=== PATIENT | male | born 1960 | race Caucasian/White ===

== ENCOUNTER 2020-01-25 20:42 | Observation (INO) | payer MEDICARE, MEDICAID ==
[~2020-01-25] VITALS: Ht 175.3 cm; Wt 125.0 kg
[2020-01-25] MEDS ORDERED: NS IV 500 ML 500 ML IV ONE (21:04)
[2020-01-25 21:07] LABS: BASOPHILS # (AUTO) 0.1 10^3/uL (0.0-0.1); BASOPHILS % (AUTO) 1 % (0-10); EOSINOPHILS % (AUTO) 1 % (0-10); HEMATOCRIT 48 % (40-54); HEMOGLOBIN 16.6 g/dL (13.3-17.7); LYMPHOCYTES # (AUTO) 4.2 10^3/uL (1.0-4.0); LYMPHOCYTES % (AUTO) 53 % (12-44); MEAN CORPUSCULAR HEMOGLOBIN 35 pg (25-34); MEAN CORPUSCULAR HGB CONC 35 g/dL (32-36); MEAN CORPUSCULAR VOLUME 101 fL (80-99); MEAN PLATELET VOLUME 10.9 fL (9.0-12.2); MONOCYTES # (AUTO) 0.4 10^3/uL (0.0-1.0); MONOCYTES % (AUTO) 5 % (0-12); NEUTROPHILS # (AUTO) 3.2 10^3/uL (1.8-7.8); NEUTROPHILS % (AUTO) 41 % (42-75); PLATELET COUNT 212 10^3/uL (130-400); WHITE BLOOD COUNT 7.9 10^3/uL (4.3-11.0)
[2020-01-25 21:14] LABS: BILIRUBIN,URINE NEGATIVE (NEGATIVE); CLARITY,URINE CLEAR; COLOR,URINE YELLOW; GLUCOSE, URINE (UA) NEGATIVE (NEGATIVE); KETONES,URINE NEGATIVE (NEGATIVE); LEUKOCYTE ESTERASE ,URINE NEGATIVE (NEGATIVE); NITRITE,URINE NEGATIVE (NEGATIVE); PROTEIN,URINE 1+ (NEGATIVE)
[2020-01-25 21:19] LABS: BACTERIA,URINE NEGATIVE /HPF; SQUAMOUS EPITHELIAL CELL,UR 0-2 /HPF
--- NOTE | 2020-01-25 21:19 | ED Chest Pain ---
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 PT REPORTS DRINKING ETOH ALL DAY TODAY. EMS REPORTS GIVING 324ASA AND X2 NITRO FEED RESEARCH TECHNICIAN. Nursing Sepsis Screen: No Definite Risk History of Present Illness Date Seen by Provider: Jan 25, 2020 Time Seen by Provider: 20:45 Initial Comments 59-year-old male presents via EMS for complaints of left substernal chest pain, aim to left arm. Symptoms began approximately one hour ago. Patient reports he had been drinking beer and vodka throughout the day today. He was sleeping when the chest pain awoke him. He was given aspirin 324 mg orally by EMS and nitroglycerin 2. Chest pain was relieved after the second nitroglycerin. Vital signs are stable. He was found to have an SaO2 in the mid 80s on room air, they've been giving him oxygen at 3 L per nasal cannula which is maintaining at 95% or higher. Reports a history of COPD, he denies a history of previous MIs or CAD. Patient does report a history of bed bugs in his home. He denies a history of diabetes. He had mild nausea when the chest pain began but is resolved at this time. PCP is Lucille Santoyo APRN at [facility]. Patient has never been patient at [facility], he normally goes to [facility]. Timing/Duration: 1-3 hours Severity/Quality: moderate Location: substernal Radiation: arms (left) Activities at Onset: sleep Prior CP/Workup: no prior chest pain, no prior cardiac workup ASA po FEED RESEARCH TECHNICIAN: Yes NTG SL FEED RESEARCH TECHNICIAN: Yes Associated Symptoms: No diaphoresis, No fatigue, No nausea/vomiting Allergies and Home Medications Allergies Coded Allergies: paroxetine (Verified Allergy, Unknown, 01/25/20) Patient Home Medication List Home Medication List Reviewed: Yes Review of Systems Review of Systems Constitutional: no symptoms reported, see HPI Respiratory: See HPI; Denies Cough; Shortness of Air (chronic, history of COPD), SOA With Exertion, Wheezing Cardiovascular: See HPI, Chest Pain Gastrointestinal: No Symptoms Reported, See HPI Skin: see HPI, other (lesions from bed bugs) All Other Systems Reviewed Negative Unless Noted: Yes Past Iaxhhbr-Ruklzd-Dfbqmw Hx Past Med/Social Hx: Reviewed Nursing Past Med/Soc Hx Patient Social History Alcohol Use: Regular Use Alcohol Beverage of Choice: Beer, Vodka Recreational Drug Use: Yes Drug of Choice: POT Smoking Status: Current Everyday Smoker Type Used: Cigarettes 2nd Hand Smoke Exposure: Yes Recent Foreign Travel: No Contact w/Someone Who Travel: No Recent Infectious Disease Expo: No Recent Hopitalizations: No Physical Abuse: No Sexual Abuse: No Mistreated: No Fear: No Seasonal Allergies Seasonal Allergies: Yes Past Medical History Surgeries: No Respiratory: Yes COPD Cardiac: Yes High Cholesterol, Hypertension Neurological: No Genitourinary: No Gastrointestinal: Yes Ulcer Musculoskeletal: Yes Arthritis, Fractures Endocrine: No HEENT: Yes Cataract Loss of Vision: Bilateral Cancer: No Psychosocial: Yes Anxiety, Depression Integumentary: No Blood Disorders: No Physical Exam Vital Signs Vital Signs - First Documented 01/25/20 01/25/20 20:44 20:48 Temp 36.3 Pulse 92 Resp 18 B/P (MAP) 145/82 (103) O2 Delivery Room Air O2 Flow Rate 3.0 Capillary Refill : Less Than 3 Seconds Height, Weight, BMI Height: '" Weight: lbs. oz. kg; 38.00 BMI Method: General Appearance: No Apparent Distress, WD/WN, Obese HEENT: PERRL/EOMI, TMs Normal, Pharynx Normal Neck: Full Range of Motion, Normal Inspection, Non Tender, Supple Respiratory: Normal Breath Sounds, No Accessory Muscle Use, Wheezing Cardiovascular: Regular Rate, Rhythm, No Murmur, Normal Peripheral Pulses Gastrointestinal: Normal Bowel Sounds, Non Tender, Soft Extremity: Normal Capillary Refill, Normal Range of Motion, Non Tender, No Calf Tenderness, Pedal Edema (2+) Neurologic/Psychiatric: Alert, Oriented x3, No Motor/Sensory Deficits, Normal Mood/Affect Skin: Warm/Dry, Pallor Progress/Results/Core Measures Results/Orders Lab Results Laboratory Tests Test 01/25/20 20:57 01/25/20 21:06 01/25/20 21:20 Range/Units White Blood Count 7.9 4.3-11.0 10^3/uL Red Blood Count 4.78 4.30-5.52 10^6/uL Hemoglobin 16.6 13.3-17.7 g/dL Hematocrit 48 40-54 % Mean Corpuscular Volume 101 H 80-99 fL Mean Corpuscular Hemoglobin 35 H 25-34 pg Mean Corpuscular Hemoglobin Concent 35 32-36 g/dL Red Cell Distribution Width 14.7 H 10.0-14.5 % Platelet Count 212 130-400 10^3/uL Mean Platelet Volume 10.9 9.0-12.2 fL Immature Granulocyte % (Auto) 0 % Neutrophils (%) (Auto) 41 L 42-75 % Lymphocytes (%) (Auto) 53 H 12-44 % Monocytes (%) (Auto) 5 0-12 % Eosinophils (%) (Auto) 1 0-10 % Basophils (%) (Auto) 1 0-10 % Neutrophils # (Auto) 3.2 1.8-7.8 10^3/uL Lymphocytes # (Auto) 4.2 H 1.0-4.0 10^3/uL Monocytes # (Auto) 0.4 0.0-1.0 10^3/uL Eosinophils # (Auto) 0.0 0.0-0.3 10^3/uL Basophils # (Auto) 0.1 0.0-0.1 10^3/uL Immature Granulocyte # (Auto) 0.0 0.0-0.1 10^3/uL Urine Color YELLOW Urine Clarity CLEAR Urine pH 6.0 5-9 Urine Specific [place] >=1.030 1.016-1.022 Urine Protein 1+ H NEGATIVE Urine Glucose (UA) NEGATIVE NEGATIVE Urine Ketones NEGATIVE NEGATIVE Urine Nitrite NEGATIVE NEGATIVE Urine Bilirubin NEGATIVE NEGATIVE Urine Urobilinogen 2.0 < = 1.0 MG/DL Urine Leukocyte Esterase NEGATIVE NEGATIVE Urine RBC (Auto) NEGATIVE NEGATIVE Urine RBC NONE /HPF Urine WBC NONE /HPF Urine Squamous Epithelial Cells 0-2 /HPF Urine Crystals NONE /LPF Urine Bacteria NEGATIVE /HPF Urine Casts NONE /LPF Urine Mucus SMALL H /LPF Urine Culture Indicated NO Urine Opiates Screen NEGATIVE NEGATIVE Urine Oxycodone Screen NEGATIVE NEGATIVE Urine Methadone Screen NEGATIVE NEGATIVE Urine Propoxyphene Screen NEGATIVE NEGATIVE Urine Barbiturates Screen NEGATIVE NEGATIVE Ur Tricyclic Antidepressants Screen NEGATIVE NEGATIVE Urine Phencyclidine Screen NEGATIVE NEGATIVE Urine Amphetamines Screen NEGATIVE NEGATIVE Urine Methamphetamines Screen NEGATIVE NEGATIVE Urine Benzodiazepines Screen NEGATIVE NEGATIVE Urine Cocaine Screen NEGATIVE NEGATIVE Urine Cannabinoids Screen POSITIVE H NEGATIVE Prothrombin Time 17.2 H 12.2-14.7 SEC INR Comment 1.4 0.8-1.4 Activated Partial Thromboplast Time 41 H 24-35 SEC Sodium Level 137 135-145 MMOL/L Potassium Level 3.2 L 3.6-5.0 MMOL/L Chloride Level 93 L 98-107 MMOL/L Carbon Dioxide Level 25 21-32 MMOL/L Anion Gap 19 H 5-14 MMOL/L Blood Urea Nitrogen 19 H 7-18 MG/DL Creatinine 0.96 0.60-1.30 MG/DL Estimat Glomerular Filtration Rate > 60 BUN/Creatinine Ratio 20 Glucose Level 165 H 70-105 MG/DL Calcium Level 8.1 L 8.5-10.1 MG/DL Corrected Calcium 8.5 8.5-10.1 MG/DL Magnesium Level 1.7 1.6-2.4 MG/DL Total Bilirubin 1.8 H 0.1-1.0 MG/DL Aspartate Amino Transf (AST/SGOT) 335 H 5-34 U/L Alanine Aminotransferase (ALT/SGPT) 352 H 0-55 U/L Alkaline Phosphatase 94 40-136 U/L Myoglobin 38.3 10.0-92.0 NG/ML Troponin I 0.029 H <0.028 NG/ML C-Reactive Protein High Sensitivity 0.12 0.00-0.50 MG/DL B-Type Natriuretic Peptide 13.2 <100.0 PG/ML Total Protein 7.8 6.4-8.2 GM/DL Albumin 3.5 3.2-4.5 GM/DL Serum Alcohol 253 H <10 MG/DL My Orders Orders - EDIS SHOOK Cbc With Automated Diff (01/25/20 20:49) Magnesium (01/25/20 20:49) Chest 1 View, Ap/Pa Only (01/25/20 20:49) Ekg Tracing (01/25/20 20:49) Comprehensive Metabolic Panel (01/25/20 20:49) Myoglobin Serum (01/25/20 20:49) Protime With Inr (01/25/20 20:49) Partial Thromboplastin Time (01/25/20 20:49) O2 (01/25/20 20:49) Monitor-Rhythm Ecg Trace Only (01/25/20 20:49) Ed Iv/Invasive Line Start (01/25/20 20:49) BNP (01/25/20 20:49) Troponin I (01/25/20 20:49) Alcohol (01/25/20 21:00) Hs C Reactive Protein (01/25/20 21:00) Drug Screen Stat (Urine) (01/25/20 21:00) Ua Culture If Indicated (01/25/20 21:00) Ed Iv/Invasive Line Start (01/25/20 21:04) Ed Iv/Invasive Line Start (01/25/20 21:04) Ns Iv 500 Ml (Sodium Chloride 0.9%) (01/25/20 21:04) Potassium Chloride (Tablet) (Klor Con Ta (01/25/20 21:55) Medications Given in ED Current Medications Medications Dose Ordered Sig/Devonte Route Start Time Stop Time Status Last Admin Dose Admin Sodium Chloride 500 ml @ 0 mls/hr Q0M ONCE IV 01/25/20 21:04 01/25/20 21:06 DC 01/25/20 21:09 999 MLS/HR Vital Signs/I&O 01/25/20 01/25/20 20:44 20:48 Temp 36.3 Pulse 92 Resp 18 B/P (MAP) 145/82 (103) O2 Delivery Room Air Nasal Cannula O2 Flow Rate 3.0 Blood Pressure Mean: 103 Progress Progress Note : Time: 20:45 Progress Note Patient seen and evaluated, will obtain chest x-ray, EKG, labs, normal saline 500 ML's. Will continue on 3 L oxygen per nasal cannula. Patient currently rates his pain at a 3/10. 2114 patient denies any additional complaints at this time, no further chest pain. [address] Walton and Dr. Zavala, agreed with plans to admit for observation and follow-up troponins. Patient resting in bed, eyes closed, easily aroused, no chest pain or other complaints. VS have remained stable. Initial ECG Impression Date: Jan 25, 2020 Initial ECG Impression Time: 20:47 Initial ECG Rate: 94 Initial ECG Rhythm: Normal Sinus Initial ECG Intervals: Normal Initial ECG Intervals WA 157, QRSD 97, QT 367, QTC 459. [place] P 68, QRS 23, T 28. Initial ECG Comparisson: No Previous ECG Available Comment Reviewed with Dr. Richard and agreed with interpretation. Diagnostic Imaging Diagonstic Imaging: Xray Plain Films/CT/US/NM/MRI: chest Comments NAME: CHRIS BARNES [facility] REC#: [id number] PT STATUS: REG ER : 1960 PHYSICIAN: EDIS SHOOK ADMIT DATE: 01/25/20/ER Draft Date of Exam:01/25/20 CHEST 1 VIEW, AP/PA ONLY INDICATION: Chest pain. COMPARISON: None. EXAMINATION: Single view of the chest was obtained. FINDINGS: Slight cardiac enlargement. Lungs are otherwise clear. There is no pneumothorax but osseous structures are normal. IMPRESSION: No acute cardiopulmonary finding. Dictated on workstation # [id number] Dict: 01/25/202135 Trans: 01/25/202145 [facility] [phone] Interpreted by: TOBIAS LEE Electronically signed by: Reviewed: Reviewed by Me Departure Impression Primary Impression: Chest pain Qualified Codes: R07.9 - Chest pain, unspecified Additional Impressions: Alcoholism Tobacco abuse COPD (chronic obstructive pulmonary disease) Qualified Codes: J42 - Unspecified chronic bronchitis Bed bug bite Qualified Codes: W57.XXXA - Bitten or stung by nonvenomous insect and other nonvenomous arthropods, initial encounter Disposition: ADMITTED INPATIENT Condition: Stable Admissions Decision to Admit Reason: Admit from ER (General) Decision to Admit/Date: Jan 25, 2020 Time/Decision to Admit Time: 21:15 Departure-Patient Inst. Referrals: [facility]/EDIS GOMES Jan 25, 2020 21:19
[2020-01-25 21:27] LABS: AMPHETAMINE SCREEN, URINE NEGATIVE (NEGATIVE); BARBITURATE SCREEN URINE NEGATIVE (NEGATIVE); BENZODIAZEPINES SCREEN URINE NEGATIVE (NEGATIVE); CANNABINOID SCREEN, URINE POSITIVE (NEGATIVE); COCAINE SCREEN URINE NEGATIVE (NEGATIVE); METHADONE STAT NEGATIVE (NEGATIVE); METHAMPHETAMINE SCREEN URINE S NEGATIVE (NEGATIVE); OPIATE SCREEN URINE NEGATIVE (NEGATIVE); OXYCODONE STAT NEGATIVE (NEGATIVE); PROPOXYPHENE STAT NEGATIVE (NEGATIVE); TRICYCLIC ANTIDEPRESSANTS SCRE NEGATIVE (NEGATIVE)
[2020-01-25 21:43] LABS: ALBUMIN 3.5 GM/DL (3.2-4.5)
[2020-01-25 21:44] LABS: CHLORIDE 93 MMOL/L (98-107); INR 1.4 (0.8-1.4); POTASSIUM 3.2 MMOL/L (3.6-5.0); PROTHROMBIN TIME PATIENT 17.2 SEC (12.2-14.7); SODIUM 137 MMOL/L (135-145)
[2020-01-25 21:45] LABS: CALCIUM 8.1 MG/DL (8.5-10.1)
[2020-01-25 21:46] LABS: GLUCOSE 165 MG/DL (70-105); TOTAL PROTEIN 7.8 GM/DL (6.4-8.2)
[2020-01-25 21:47] LABS: CARBON DIOXIDE 25 MMOL/L (21-32)
[2020-01-25 21:48] LABS: BILIRUBIN,TOTAL 1.8 MG/DL (0.1-1.0)
--- NOTE | 2020-01-25 21:48 | Diagnostic Imaging Report ---
INDICATION: Chest pain. COMPARISON: None. EXAMINATION: Single view of the chest was obtained. FINDINGS: Slight cardiac enlargement. Lungs are otherwise clear. There is no pneumothorax but osseous structures are normal. IMPRESSION: No acute cardiopulmonary finding. Dictated by: Dictated on workstation # [id number]
[2020-01-25 21:49] LABS: ALKALINE PHOSPHATASE 94 U/L (40-136)
[2020-01-25 21:50] LABS: CREATININE SERUM 0.96 MG/DL (0.60-1.30); GFR ESTIMATED > 60
[2020-01-25 21:51] LABS: BUN/CREATININE RATIO 20
[2020-01-25] MEDS ORDERED: ATEN1TAB3 PO (21:51)
[2020-01-25] MEDS ORDERED: CLON2TAB12 PO (21:51)
[2020-01-25 21:52] LABS: MAGNESIUM 1.7 MG/DL (1.6-2.4)
[2020-01-25 21:53] LABS: ALANINE AMINOTRANSFERASE 352 U/L (0-55)
[2020-01-25] MEDS ORDERED: KCL 10 MEQ TAB (MICRO K) PO STA (21:55)
[2020-01-25] MEDS ORDERED: RT-ALBUINH INH (21:56)
[2020-01-25] MEDS ORDERED: GABA-486 (21:56)
[2020-01-25] MEDS ORDERED: POTA10TA (21:56)
[2020-01-25] MEDS ORDERED: MELO7.5T46 PO (21:56)
[2020-01-25] MEDS ORDERED: BUDE10.2 INH (21:56)
--- NOTE | 2020-01-25 22:34 | NUR ---
ATTEMPT TO CALL REPORT. RN TO RETURN CALL
[2020-01-25 23:10] VITALS: BP 123/76
--- NOTE | 2020-01-25 23:10 | NUR ---
CHRIS BARNES admitted to room 410-1, with an admitting diagnosis of Chest pain, COPD, Alcoholism, on 01/25/20 from [place] ED via wheelchair, accompanied by staff.CHRIS BARNES introduced to surroundings, call light, bed controls, phone, TV, temperature control, lights, meal times, smoking policy, visitor policy, side rail policy, bathrooms and showers. Patient Rights given to patient in the handbook. CHRIS BARNES verbalizes understanding that [facility] is not responsible for the loss or damage to any personal effects or valuables that are kept in the patients posession during their hospitalization.
[2020-01-25] MEDS ORDERED: ONDANSETRON 4 MG/2 ML (SDV) Z0FRAN IVP PRN (23:45)
[2020-01-25] MEDS ORDERED: LORazepam INJ 2 MG/ML (ATIVAN) VIAL IVP PRN (23:45)
[2020-01-25] MEDS ORDERED: NITROGLYCERIN 0.4 MG SL TABS BTL 25'S SL PRN (23:45)
[2020-01-25] MEDS ORDERED: RT-ALBUTEROL INHALER HFA (VENTOLIN HFA) 18 GM IH PRN (23:45)
[2020-01-26] VITALS (15 sets, daily range): BP systolic 123–186; BP diastolic 65–88
--- NOTE | 2020-01-26 00:46 | NUR ---
Messaged Dr. Walton about patient status being SOA and coughing. Requested to put patient on MAT protocol. No response at this time.
[2020-01-26] MEDS: ACETAMINOPHEN 325 MG TABLET PO PRN (02:54)
--- NOTE | 2020-01-26 03:10 | NUR ---
Patient vomited on himself. Stated he coughed too hard. Patient cleaned at this time. Zofran administered
--- NOTE | 2020-01-26 03:10 | NUR ---
Spoke with Dr. Walton on the phone. Updated her on patients status. Patient is currently on 5L NC sating at 94%. Dr Walton requested to swab the patient for covid, place the patient in contact/droplet isolation, and on MAT protocol.
--- NOTE | 2020-01-26 03:17 | NUR ---
Spoke with Dr. Zavala regarding the patients critical troponin value of 0.305. Dr. Zavala ordered for the patient to have 2 81mg chewable aspirin now and then once daily starting in the AM, 150 of Plavix now and 75 once daily starting in AM, and 25 of Metoprolol once now and then daily starting in the AM. He also instructed the patient to be on a clear liquid diet for breakfast and then NPO afterward until he can see the patient. Orders placed and medications administered at this time.
[2020-01-26] MEDS ORDERED: ASPIRIN 81 MG CHEW (CHILDREN'S ASA) PO ONE (03:30)
[2020-01-26] MEDS ORDERED: CLOPIDOGREL 75 MG (PLAVIX) TABLET PO ONE (03:30)
[2020-01-26] MEDS ORDERED: CLOPIDOGREL 75 MG (PLAVIX) TABLET ONE (03:44)
[2020-01-26] MEDS ORDERED: ASPIRIN 81 MG CHEW (CHILDREN'S ASA) ONE (03:44)
[2020-01-26] MEDS ORDERED: ALBUTEROL/IPRATROP (COMBIVENT RESPIMAT) 4 GM INHALER IH PRN (06:00)
[2020-01-26 07:19] LABS: BASOPHILS # (AUTO) 0.1 10^3/uL (0.0-0.1); BASOPHILS % (AUTO) 1 % (0-10); EOSINOPHILS % (AUTO) 0 % (0-10); HEMATOCRIT 44 % (40-54); HEMOGLOBIN 15.2 g/dL (13.3-17.7); LYMPHOCYTES # (AUTO) 2.7 10^3/uL (1.0-4.0); LYMPHOCYTES % (AUTO) 41 % (12-44); MEAN CORPUSCULAR HEMOGLOBIN 35 pg (25-34); MEAN CORPUSCULAR HGB CONC 34 g/dL (32-36); MEAN CORPUSCULAR VOLUME 101 fL (80-99); MEAN PLATELET VOLUME 9.7 fL (9.0-12.2); MONOCYTES # (AUTO) 0.5 10^3/uL (0.0-1.0); MONOCYTES % (AUTO) 7 % (0-12); NEUTROPHILS # (AUTO) 3.4 10^3/uL (1.8-7.8); NEUTROPHILS % (AUTO) 51 % (42-75); PLATELET COUNT 132 10^3/uL (130-400); WHITE BLOOD COUNT 6.7 10^3/uL (4.3-11.0)
[2020-01-26] MEDS ORDERED: FLU QUADRIvalent (3YOA+) 60 mcg/0.5 ml 2020-21 (AFLURIA) IM ONE (07:30)
[2020-01-26 07:40] LABS: ALANINE AMINOTRANSFERASE 283 U/L (0-55); ALBUMIN 3.1 GM/DL (3.2-4.5); ALKALINE PHOSPHATASE 84 U/L (40-136); BILIRUBIN,TOTAL 1.9 MG/DL (0.1-1.0); BUN/CREATININE RATIO 23; CALCIUM 7.8 MG/DL (8.5-10.1); CARBON DIOXIDE 24 MMOL/L (21-32); CHLORIDE 93 MMOL/L (98-107); CREATININE SERUM 0.84 MG/DL (0.60-1.30); GFR ESTIMATED > 60; GLUCOSE 119 MG/DL (70-105); POTASSIUM 3.2 MMOL/L (3.6-5.0); SODIUM 134 MMOL/L (135-145); TOTAL PROTEIN 7.1 GM/DL (6.4-8.2)
[2020-01-26] MEDS: ASPIRIN 81 MG CHEW (CHILDREN'S ASA) PO SCH (09:07)
[2020-01-26] MEDS: CLOPIDOGREL 75 MG (PLAVIX) TABLET PO SCH (09:07)
[2020-01-26] MEDS: NICOTINE 21 MG (NICODERM) PATCH TD SCH ×2 (09:10→19:34)
[2020-01-26] MEDS ORDERED: NS IV 500 ML 500 ML ONE (09:13)
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
[2020-01-26] MEDS: POTASSIUM CL 10MEQ/50ML IVPB 50 ML IV SCH ×4 (09:20→15:24)
[2020-01-26] MEDS: methylPREDNISolone 125 MG (Solu-MEDROL) VIAL IVP SCH ×3 (09:48→19:36)
[2020-01-26] MEDS: NS IV 1000 ML 1,000 ML IV SCH ×3 (09:55→22:50)
[2020-01-26] MEDS ORDERED: POTA10TA6 PO (11:51)
[2020-01-26] MEDS ORDERED: ACET-2267 PO (11:52)
--- NOTE | 2020-01-26 12:03 | NUR ---
SPOKE WITH THE PT (I CALLED HIS ROOM PHONE) AND WENT THRU THE EXT MED HISTORY TO COMPLETE THE MED REC GABAPENTIN 100MG SHOWS ON THE EXT MED HISTORY BEING FILLED THE PAST SEVERAL MONTHS, BUT ACCORDING TO THE PT HE DOESNT TAKE THEM BECAUSE THEY DONT DO ANYTHING AND HE JUST THROWS THEM IN THE TRASH. FOR THAT REASON I DID NOT INCLUDE GABAPENTIN ON THE MED REC OTC MEDS: TYLENOL
--- NOTE | 2020-01-26 12:44 | History & Physical ---
HPI History of Present Illness: 59 yo male presented to ER with chest pain that started in the afternoon, felt like a "thousand pound" foot on the middle of his chest and radiated to his left arm. He did vomit after arriving here. He denies fever. He has chronic productive cough, but it is slightly worse than usual the last day or two. He admits sore throat that he relates to his inhaler. He does not use supplemental oxygen at home. Source: patient Date seen by provider: Jan 26, 2020 Time Seen by Provider: 09:20 Attending Physician Laurel Marrero MD PCP No,Local Physician Consult Date of Admission Jan 25, 2020 at 22:27 Home Medications Home Medications Reviewed patient Home Medication Reconciliation performed by pharmacy medication reconciliations health care technician and/or nursing. Patients Allergies have been reviewed. Allergies Coded Allergies: paroxetine (Verified Allergy, Unknown, 01/25/20) QDM-Rtydff-Fuwwni Hx Patient Social History Alcohol Use: Regular Use Recreational Drug Use: Yes Drug of Choice: POT Smoking Status: Current Everyday Smoker Type Used: Cigarettes 2nd Hand Smoke Exposure: Yes Recent Foreign Travel: No Contact w/other who traveled: No Recent Hopitalizations: No Recent Infectious Disease Expo: No Past Medical History PMHx: COPD HTN HLD Review of Systems ([facility]) Constitutional: No fever EENTM: other (denies loss of smell or taste) Respiratory: see HPI Cardiovascular: see HPI Gastrointestinal: No abdominal pain, No constipation, No diarrhea; nausea, vomiting Genitourinary: No dysuria Musculoskeletal: other (diffuse chronic pains) Skin: No rash Reviewed Test Results Reviewed Test Results Lab Laboratory Tests Test 01/25/20 20:57 01/25/20 21:06 01/25/20 21:20 01/26/20 02:08 Range/Units White Blood Count 7.9 4.3-11.0 10^3/uL Red Blood Count 4.78 4.30-5.52 10^6/uL Hemoglobin 16.6 13.3-17.7 g/dL Hematocrit 48 40-54 % Mean Corpuscular Volume 101 H 80-99 fL Mean Corpuscular Hemoglobin 35 H 25-34 pg Mean Corpuscular Hemoglobin Concent 35 32-36 g/dL Red Cell Distribution Width 14.7 H 10.0-14.5 % Platelet Count 212 130-400 10^3/uL Mean Platelet Volume 10.9 9.0-12.2 fL Immature Granulocyte % (Auto) 0 % Neutrophils (%) (Auto) 41 L 42-75 % Lymphocytes (%) (Auto) 53 H 12-44 % Monocytes (%) (Auto) 5 0-12 % Eosinophils (%) (Auto) 1 0-10 % Basophils (%) (Auto) 1 0-10 % Neutrophils # (Auto) 3.2 1.8-7.8 10^3/uL Lymphocytes # (Auto) 4.2 H 1.0-4.0 10^3/uL Monocytes # (Auto) 0.4 0.0-1.0 10^3/uL Eosinophils # (Auto) 0.0 0.0-0.3 10^3/uL Basophils # (Auto) 0.1 0.0-0.1 10^3/uL Immature Granulocyte # (Auto) 0.0 0.0-0.1 10^3/uL Urine Color YELLOW Urine Clarity CLEAR Urine pH 6.0 5-9 Urine Specific [place] >=1.030 1.016-1.022 Urine Protein 1+ H NEGATIVE Urine Glucose (UA) NEGATIVE NEGATIVE Urine Ketones NEGATIVE NEGATIVE Urine Nitrite NEGATIVE NEGATIVE Urine Bilirubin NEGATIVE NEGATIVE Urine Urobilinogen 2.0 < = 1.0 MG/DL Urine Leukocyte Esterase NEGATIVE NEGATIVE Urine RBC (Auto) NEGATIVE NEGATIVE Urine RBC NONE /HPF Urine WBC NONE /HPF Urine Squamous Epithelial Cells 0-2 /HPF Urine Crystals NONE /LPF Urine Bacteria NEGATIVE /HPF Urine Casts NONE /LPF Urine Mucus SMALL H /LPF Urine Culture Indicated NO Urine Opiates Screen NEGATIVE NEGATIVE Urine Oxycodone Screen NEGATIVE NEGATIVE Urine Methadone Screen NEGATIVE NEGATIVE Urine Propoxyphene Screen NEGATIVE NEGATIVE Urine Barbiturates Screen NEGATIVE NEGATIVE Ur Tricyclic Antidepressants Screen NEGATIVE NEGATIVE Urine Phencyclidine Screen NEGATIVE NEGATIVE Urine Amphetamines Screen NEGATIVE NEGATIVE Urine Methamphetamines Screen NEGATIVE NEGATIVE Urine Benzodiazepines Screen NEGATIVE NEGATIVE Urine Cocaine Screen NEGATIVE NEGATIVE Urine Cannabinoids Screen POSITIVE H NEGATIVE Prothrombin Time 17.2 H 12.2-14.7 SEC INR Comment 1.4 0.8-1.4 Activated Partial Thromboplast Time 41 H 24-35 SEC Sodium Level 137 135-145 MMOL/L Potassium Level 3.2 L 3.6-5.0 MMOL/L Chloride Level 93 L 98-107 MMOL/L Carbon Dioxide Level 25 21-32 MMOL/L Anion Gap 19 H 5-14 MMOL/L Blood Urea Nitrogen 19 H 7-18 MG/DL Creatinine 0.96 0.60-1.30 MG/DL Estimat Glomerular Filtration Rate > 60 BUN/Creatinine Ratio 20 Glucose Level 165 H 70-105 MG/DL Calcium Level 8.1 L 8.5-10.1 MG/DL Corrected Calcium 8.5 8.5-10.1 MG/DL Magnesium Level 1.7 1.6-2.4 MG/DL Total Bilirubin 1.8 H 0.1-1.0 MG/DL Aspartate Amino Transf (AST/SGOT) 335 H 5-34 U/L Alanine Aminotransferase (ALT/SGPT) 352 H 0-55 U/L Alkaline Phosphatase 94 40-136 U/L Myoglobin 38.3 10.0-92.0 NG/ML Troponin I 0.029 H 0.305 *H <0.028 NG/ML C-Reactive Protein High Sensitivity 0.12 0.00-0.50 MG/DL B-Type Natriuretic Peptide 13.2 <100.0 PG/ML Total Protein 7.8 6.4-8.2 GM/DL Albumin 3.5 3.2-4.5 GM/DL Serum Alcohol 253 H <10 MG/DL Test 01/26/20 03:55 01/26/20 04:55 01/26/20 07:05 Range/Units Coronavirus 2019 ([facility]) Negative Negative White Blood Count 6.7 4.3-11.0 10^3/uL Red Blood Count 4.39 4.30-5.52 10^6/uL Hemoglobin 15.2 13.3-17.7 g/dL Hematocrit 44 40-54 % Mean Corpuscular Volume 101 H 80-99 fL Mean Corpuscular Hemoglobin 35 H 25-34 pg Mean Corpuscular Hemoglobin Concent 34 32-36 g/dL Red Cell Distribution Width 14.3 10.0-14.5 % Platelet Count 132 130-400 10^3/uL Mean Platelet Volume 9.7 9.0-12.2 fL Immature Granulocyte % (Auto) 0 % Neutrophils (%) (Auto) 51 42-75 % Lymphocytes (%) (Auto) 41 12-44 % Monocytes (%) (Auto) 7 0-12 % Eosinophils (%) (Auto) 0 0-10 % Basophils (%) (Auto) 1 0-10 % Neutrophils # (Auto) 3.4 1.8-7.8 10^3/uL Lymphocytes # (Auto) 2.7 1.0-4.0 10^3/uL Monocytes # (Auto) 0.5 0.0-1.0 10^3/uL Eosinophils # (Auto) 0.0 0.0-0.3 10^3/uL Basophils # (Auto) 0.1 0.0-0.1 10^3/uL Immature Granulocyte # (Auto) 0.0 0.0-0.1 10^3/uL Sodium Level 134 L 135-145 MMOL/L Potassium Level 3.2 L 3.6-5.0 MMOL/L Chloride Level 93 L 98-107 MMOL/L Carbon Dioxide Level 24 21-32 MMOL/L Anion Gap 17 H 5-14 MMOL/L Blood Urea Nitrogen 19 H 7-18 MG/DL Creatinine 0.84 0.60-1.30 MG/DL Estimat Glomerular Filtration Rate > 60 BUN/Creatinine Ratio 23 Glucose Level 119 H 70-105 MG/DL Calcium Level 7.8 L 8.5-10.1 MG/DL Corrected Calcium 8.5 8.5-10.1 MG/DL Total Bilirubin 1.9 H 0.1-1.0 MG/DL Aspartate Amino Transf (AST/SGOT) 243 H 5-34 U/L Alanine Aminotransferase (ALT/SGPT) 283 H 0-55 U/L Alkaline Phosphatase 84 40-136 U/L Troponin I 2.661 *H <0.028 NG/ML Total Protein 7.1 6.4-8.2 GM/DL Albumin 3.1 L 3.2-4.5 GM/DL Radiology NAME: CHRIS BARNES [facility] REC#: [id number] PT STATUS: REG ER : 1960 PHYSICIAN: EDIS SHOOK ADMIT DATE: 01/25/20/ER Draft Date of Exam:01/25/20 CHEST 1 VIEW, AP/PA ONLY INDICATION: Chest pain. COMPARISON: None. EXAMINATION: Single view of the chest was obtained. FINDINGS: Slight cardiac enlargement. Lungs are otherwise clear. There is no pneumothorax but osseous structures are normal. IMPRESSION: No acute cardiopulmonary finding. Dictated on workstation # [id number] Dict: 01/25/202135 Trans: 01/25/202145 [facility] [id number] Interpreted by: TOBIAS LEE Electronically signed by: Physical Exam-([facility]) Physical Exam Vital Signs VS - Last 72 Hours, by Label 01/25/20 01/25/20 01/25/20 01/25/20 20:42 20:44 20:48 23:04 Temp 36.3 Pulse 92 89 Resp 18 17 B/P (MAP) 145/82 (103) 144/80 Pulse Ox 97 97 O2 Delivery Nasal Cannula Room Air Nasal Cannula Nasal Cannula O2 Flow Rate 3.00 3.0 3.00 01/25/20 01/25/20 01/26/20 01/26/20 23:10 23:10 00:00 01:16 Temp 37.1 37.1 Pulse 91 91 90 Resp 20 20 B/P (MAP) 123/76 123/76 (92) Pulse Ox 91 91 91 O2 Delivery Nasal Cannula Nasal Cannula Nasal Cannula O2 Flow Rate 3.00 3.00 3.00 3.00 01/26/20 01/26/20 01/26/20 01/26/20 04:00 05:48 06:59 07:03 Temp 36.6 36.3 36.8 Pulse 106 92 88 85 Resp 20 22 B/P (MAP) 163/88 (113) 151/80 (103) Pulse Ox 96 95 94 O2 Delivery Room Air Nasal Cannula O2 Flow Rate 4.00 01/26/20 08:00 Temp 36.6 Pulse 86 Resp 20 B/P (MAP) 146/65 (92) Pulse Ox 94 O2 Delivery Nasal Cannula O2 Flow Rate 4.00 Capillary Refill : Less Than 3 Seconds General Appearance: no apparent distress Respiratory: rhonchi, wheezing Cardiovascular: regular rate, rhythm, no murmur Gastrointestinal: normal bowel sounds, non tender, soft Extremities: no pedal edema Neurologic/Psychiatric: alert, normal mood/affect Skin: normal color, warm/dry Assessment/Plan Assessment/Plan Admission Status: Inpatient Order (span 2 midnights) Reason for Inpatient Admission: Increasing troponin, supsected NSTEMI with acute on chronic respiratory failure (1) Chest pain Status: Acute Assessment & Plan: Consistent with ischemia per symptoms, troponin increasing, Cardiology consulted and plan for cath this am. On plavix and ASA. Qualifiers: Qualified Codes: R07.9 - Chest pain, unspecified (2) Acute and chronic respiratory failure with hypoxia Status: Acute Assessment & Plan: Requiring increasing supplemental oxygen overnight, suspect COPD exacerbation in combination with NSTEMI, however cannot rule out infection, checking COVID and influenza. CXR unremarkable and no leukocytosis, do not suspect pneumonia. (3) Alcoholism Status: Chronic Assessment & Plan: Markedly elevated EtOH level on admit. CIWA, but would not anticipate withdrawal yet. (4) Hypokalemia Status: Acute Assessment & Plan: Replace and follow. (5) Acute hepatitis Status: Acute Assessment & Plan: Markedly elevated liver enzymes, denies known history of hepatitis, acute alcoholic hepatitis versus viral hepatitis, check hepatitis panel. Also has acetaminophen on home med list, will check apap level. (6) Elevated troponin Status: Acute (7) COPD exacerbation Status: Acute Assessment & Plan: Solumedrol, MAT protocol. (8) Person under investigation for COVID-19 Status: Acute (9) Tobacco abuse Status: Chronic (10) COPD (chronic obstructive pulmonary disease) Status: Chronic Qualifiers: Qualified Codes: J42 - Unspecified chronic bronchitis (11) DVT prophylaxis Status: Acute Clinical Quality Measures AMI/AHF: ASA po Prior to arrival: Yes DVT/VTE Risk/Contraindication: Risk Factor Score Per Nursin RFS Level Per Nursing on Admit: 4+=Very High LAUREL MARRERO MD Jan 26, 2020 12:44
[2020-01-26] MEDS ORDERED: 1/2 NS IV SOLUTION 1,000 ML IV PRN (13:01)
[2020-01-26] MEDS ORDERED: LORazepam INJ 2 MG/ML (ATIVAN) VIAL IV PRN (13:15)
[2020-01-26] MEDS ORDERED: LORazepam 1 MG (ATIVAN) TAB PO PRN (13:15)
[2020-01-26] MEDS ORDERED: D5 1/2 NS 1000 ML IV SOLUTION 1,000 ML IV PRN (13:15)
[2020-01-26] MEDS ORDERED: LORazepam INJ 2 MG/ML (ATIVAN) VIAL IM/IV PRN (13:15)
[2020-01-26] MEDS: ENOXAPARIN 40 MG/0.4 ML (LOVENOX) SYR SC SCH (15:19)
[2020-01-26] MEDS ORDERED: LIDOCAINE 1% INJ 20 ML 20 ML VIAL ONE (15:43)
[2020-01-26] MEDS ORDERED: HEParin (CATH LAB) 2,000 ML IV ONE (15:43)
[2020-01-26] MEDS ORDERED: NS IV 1000 ML 1,000 ML ONE (15:43)
[2020-01-26] MEDS ORDERED: MIDAZOLAM 5 MG/5 ML (VERSED) VIAL ONE (17:08)
[2020-01-26] MEDS ORDERED: fentaNYL INJECTION 100 MCG/2 ML AMP ONE (17:08)
--- NOTE | 2020-01-26 17:15 | NUR ---
REPORT FROM MOSHE ALONSO, WILL ASSUME CARE OF PATIENT AT THIS TIME.
[2020-01-26] MEDS ORDERED: EPTIFIBATIDE DRIP 100 ML IV ONE (17:33)
[2020-01-26] MEDS ORDERED: HEParin 1000 UNIT/ML (10ML VIAL) FOR BOLUS ONE (17:33)
[2020-01-26] MEDS ORDERED: NITRO DRIP 25000 MCG/D5W 250 ML IV ONE (17:33)
[2020-01-26] MEDS ORDERED: EPTIFIBATIDE BOLUS 10 ML IV ONE (17:33)
--- NOTE | 2020-01-26 18:00 | NUR ---
PATIENT OFF FLOOR TO FLIGHT ENGINEER INSTRUCTOR AT THIS TIME.
--- NOTE | 2020-01-26 18:03 | Cardiac Procedure Note-CS/ASA ---
Pre-Procedure Note Pre-Op Procedure Note H&P Reviewed The H&P was reviewed, patient examined and no changes noted. Date H&P Reviewed: Jan 26, 2020 Time H&P Reviewed: 18:03 Conscious Sedation Pre-Proced Time 18:03 ASA Score 3 For ASA 3 and 4: Consider anesthesia and medical clearance. Also, for patients with a history of failed moderate sedation consider anesthesia. Airway Lungs Heart ASA score ASA 1: a normal healthy patient ASA 2: a patient with a mild systemic disease (mid diabetes, controlled hypertension, obesity ASA 3: a patient with a severe systemic disease that limits activity (angina, COPD, prior Myocardial infarction) ASA 4: a patient with an incapacitating disease that is a constant threat to life (CHF, renal failure) ASA 5: a moribund patient not expected to survive 24 hrs. (ruptured aneurysm) ASA 6: a declared brain- patient whose organs are being harvested. For emergent operations, add the letter E after the classification Mallampati Classification Grade 3 Sedation Plan Analgesia, Amnesia, Plan communicated to team members, Discussed options with patient/fam, Discussed risks with patient/fam The patient is an appropriate candidate to undergo the planned procedure, sedation, and anesthesia. The patient immediately re-assessed prior to indication. AMARA BROWN MD FACP FAC CCDS Jan 26, 2020 18:03
[2020-01-26] MEDS ORDERED: ADENOSINE 90 MG/30 ML (ADENOSCAN) VIAL IV ONE (18:23)
--- NOTE | 2020-01-26 19:00 | NUR ---
REPORT RECEIVED FORM GAVIN MARTEL. PT OFF FLOOR AT THIS TIME
[2020-01-26] MEDS ORDERED: CLOPIDOGREL 300 MG (PLAVIX) TABLET PO ONE (19:12)
[2020-01-26] MEDS ORDERED: ASPIRIN 325 MG (5 GR) TABLET ONE (19:12)
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
[2020-01-26] MEDS ORDERED: PATIENT MAY USE OWN MEDS, ALL PO SCH (19:15)
[2020-01-26] MEDS: MAGNESIUM OXIDE (MAG-OX)400 MG TAB PO SCH (19:36)
[2020-01-26] MEDS: ADVAIR HFA 115/21 MCG INHALER 8 GM IH SCH (19:52)
--- NOTE | 2020-01-26 22:32 | NUR ---
dr major contacted d/t covid results coming back negative. orders given to take pt out of covid isolation at this time.
--- NOTE | 2020-01-26 23:56 | CARDIAC CATHETERIZATION ---
DATE OF SERVICE: 01/26/2020 CARDIAC CATHETERIZATION AND CORONARY INTERVENTION REPORT The patient is a 59-year-old gentleman who was admitted with chest pain and subsequent troponin was elevated. This indicated acute non-ST elevation myocardial infarction. Informed consent was obtained for cardiac catheterization and possible ad hoc coronary intervention. DESCRIPTION OF PROCEDURE: He was brought to the cardiac catheterization laboratory in a fasting state. Right groin was prepared and draped in the usual sterile fashion. Lidocaine 1% was used for local anesthesia. Modified Seldinger technique was used to advance a 6-Gibraltarian sheath into the right femoral artery. A 6-Gibraltarian JL4 catheter for left coronary angiography. A 6-Gibraltarian JR4 catheter was used for right coronary angiography. A 6-Gibraltarian pigtail catheter was used for left heart catheterization and left ventricular angiography. FRACTIONAL FLOW RESERVE MEASUREMENT IN THE LEFT CIRCUMFLEX: The left circumflex was exhibiting a mid vessel stenosis, which was difficult to evaluate. In one view, it looked rather severe and in other views, it looked mild to moderate. There was some haziness. Accordingly, we decided to do fractional flow reserve measurement. We gave 7000 units of intravenous heparin and used a 6-Gibraltarian JL4 guide catheter to engage the left coronary artery and advanced the pressure wire across the lesion and the tip was placed in the distal vessel. The fractional flow reserve at baseline was 0.77, indicating that the lesion was hemodynamically significant. However, at that time, felt to be about 90%. Accordingly, percutaneous intervention was carried out that is described below. PERCUTANEOUS INTERVENTION TO THE LEFT CIRCUMFLEX ARTERY: We kept the pressure wire in position. We advanced Arianne Xience 3.0 x 18 mm stent. This was carefully positioned to cover the entire lesion. The stent was deployed at 15 atmospheres. Full stent expansion was achieved. The stent balloon was collapsed and removed. Fractional flow reserve was again measured. It was now found to be 0.97, indicating marked improvement of the stenosis. Angiography was performed. This indicated no significant residual stenosis at the previous site with 90% stenosis and flow throughout the vessel was normal. Angioplasty equipment was removed. Angiography of the right femoral artery was carried out the sheath. Mynx was used to achieve hemostasis. HEMODYNAMICS: Left ventricular end-diastolic pressure following coronary angiography was 21 mmHg. There is no significant pressure gradient on pullback across the aortic valve. Ascending aortic pressure was 155/72 with a mean of 91 mmHg. CORONARY ANGIOGRAPHY: Left main coronary artery is free of significant disease. Left anterior descending artery is free of significant disease. Left circumflex artery had 90% stenosis in its mid vessel to which successful stenting was carried out with Arianne 3.0 x 18 mm stent that reduced the stenosis to 0% residual. Fractional flow reserve before and after is described above. The other coronary vessels do not have significant disease. Right coronary artery is dominant. VENTRICULAR ANGIOGRAPHY: Left ventricular angiography was carried out in the right anterior oblique projection. Global left ventricular systolic function is well preserved. Left ventricular ejection fraction is 55% to 60%. No regional wall motion abnormalities seen in this view. CONCLUSIONS: 1. Coronary artery disease primarily consisting of 90% mid vessel stenosis of the left circumflex artery to which successful stenting was carried out with Arianne 3.0 x 18 mm stent that reduced the stenosis to 0% residual. 2. Well preserved global left ventricular systolic function with ejection fraction of 55% to 60%. 3. Elevated left ventricular end-diastolic pressure. DISCUSSION AND RECOMMENDATIONS: Dual antiplatelet therapy is being continued. Beta blockers is being continued. He is not a suitable candidate for statin because of baseline elevation of liver enzymes. Smoking cessation and alcohol cessation has been advised. Job ID: [id number] DocumentID: [id number] Dictated Date: 01/26/2020 19:22:19 Languages And Literature Instructor Date: 01/26/2020 23:56:02 Dictated By: AMARA BROWN MD, MA, FACP, FACC,
[2020-01-27] VITALS (16 sets, daily range): BP systolic 131–154; BP diastolic 60–78
[2020-01-27] MEDS: ENOXAPARIN 40 MG/0.4 ML (LOVENOX) SYR SC SCH ×2 (01:06→13:30)
[2020-01-27] MEDS: methylPREDNISolone 125 MG (Solu-MEDROL) VIAL IVP SCH ×4 (03:16→20:44)
[2020-01-27] MEDS: NS IV 1000 ML 1,000 ML IV SCH ×2 (03:17→05:09)
[2020-01-27 05:57] LABS: HEMOGLOBIN 14.1 g/dL (13.3-17.7); MEAN PLATELET VOLUME 9.6 fL (9.0-12.2); WHITE BLOOD COUNT 6.2 10^3/uL (4.3-11.0)
[2020-01-27] MEDS: THIAMINE 100 MG (VITAMIN B-1) TAB PO SCH (06:08)
[2020-01-27] MEDS: MULTIVIT W/MINERALS TAB (THERAGRAN M) PO SCH (06:08)
[2020-01-27 06:17] LABS: CHLORIDE 96 MMOL/L (98-107); POTASSIUM 3.9 MMOL/L (3.6-5.0); SODIUM 135 MMOL/L (135-145)
[2020-01-27 06:18] LABS: CALCIUM 7.7 MG/DL (8.5-10.1)
[2020-01-27 06:19] LABS: GLUCOSE 257 MG/DL (70-105); TRIGLYCERIDES 452 MG/DL (<150); VLDL CHOLESTEROL 90 MG/DL (5-40)
[2020-01-27 06:21] LABS: CARBON DIOXIDE 26 MMOL/L (21-32)
[2020-01-27 06:23] LABS: CREATININE SERUM 0.97 MG/DL (0.60-1.30); GFR ESTIMATED > 60; PHOSPHORUS 1.5 MG/DL (2.3-4.7)
[2020-01-27 06:24] LABS: BUN/CREATININE RATIO 23; CHOLESTEROL 178 MG/DL (< 200)
[2020-01-27 06:25] LABS: HDL CHOLESTEROL 17 MG/DL (40-60)
[2020-01-27 06:26] LABS: MAGNESIUM 1.8 MG/DL (1.6-2.4)
[2020-01-27 07:21] LABS: ALBUMIN 3.1 GM/DL (3.2-4.5)
[2020-01-27 07:24] LABS: TOTAL PROTEIN 7.1 GM/DL (6.4-8.2)
[2020-01-27 07:26] LABS: BILIRUBIN,TOTAL 2.8 MG/DL (0.1-1.0)
[2020-01-27 07:30] LABS: BILIRUBIN,DIRECT 1.1 MG/DL (0.0-0.3); BILIRUBIN,INDIRECT 1.7 MG/DL
[2020-01-27] MEDS ORDERED: RT-ALBUTEROL/IPRATROPIUM 3 ML (DUONEB) VIAL INH SCH ×2 (10:00→15:00)
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
[2020-01-27] MEDS: ADVAIR HFA 115/21 MCG INHALER 8 GM IH SCH ×2 (10:25→22:20)
[2020-01-27] MEDS: NICOTINE PATCH REMOVAL TP SCH (10:40)
[2020-01-27] MEDS: FOLIC ACID 1 MG TAB PO SCH (10:43)
[2020-01-27] MEDS: MAGNESIUM OXIDE (MAG-OX)400 MG TAB PO SCH ×2 (10:43→20:43)
[2020-01-27] MEDS: ASPIRIN 81 MG CHEW (CHILDREN'S ASA) PO SCH (10:43)
[2020-01-27] MEDS: CLOPIDOGREL 75 MG (PLAVIX) TABLET PO SCH (10:43)
[2020-01-27] MEDS: NICOTINE 21 MG (NICODERM) PATCH TD SCH (10:56)
--- NOTE | 2020-01-27 11:16 | Progress Note ---
ZACH SANCHEZ MED STUDENT 01/27/20 1116: Subjective Subjective/Events-last exam 59 y/o M was drinking a beer and watching tv when he had chest pain that radiated to his L arm. Pt had some nausea but denies fever or chills. Pt had SOB and cough but were chronic conditions d/t COPD. Pt denies being on oxygen at home. Pt couldn't move around well b/c he has 3 forms of arthritis. Pt called EMS and was given nitro and aspirin but they didn't help. Pt has had angina before b/c he ate too much at once but denies previous occurrences of heart attack. ED found elevated troponin and NSTEMI. Cardiac cath was preformed, stenosis was found, and a stint was placed in the L circumflex A. Today, pt states he is eating solid food and denies nausea but vomited last night. Pt is using a urinal. Last BM was before the heart attack. Pt is not walking around d/t all the lines he's attached to. SocHx: pt has been smoking since he was 11 y/o Review of Systems Gastrointestinal: Vomiting Objective Exam Last Set of Vital Signs Vital Signs Date Time Temp Pulse Resp B/P (MAP) Pulse Ox O2 Delivery O2 Flow Rate FiO2 01/27/20 10:00 86 135/65 (88) 93 Nasal Cannula 4.00 01/27/20 08:00 36.8 01/26/20 16:00 20 Capillary Refill : Less Than 3 Seconds I&O Intake and Output 01/27/20 00:00 Intake Total 1500 ml Output Total 750 ml Balance 750 ml Intake Oral 1500 ml Output Urine Total 750 ml # Voids 1 # Emeses 1 General: Alert, Oriented X3, Cooperative, No Acute Distress Lungs: Other (expiratory rhonchi d/t COPD) Heart: Regular Rate, No Murmurs Neuro: Normal Speech Psych/Mental Status: Mental Status NL Results/Procedures Lab Laboratory Tests 01/27/20 05:45: White Blood Count 6.2, Red Blood Count 4.05L, Hemoglobin 14.1, Hematocrit 41, Mean Corpuscular Volume 101H, Mean Corpuscular Hemoglobin 35H, Mean Corpuscular Hemoglobin Concent 35, Red Cell Distribution Width 13.5, Platelet Count 110L, Mean Platelet Volume 9.6, Sodium Level 135, Potassium Level 3.9, Chloride Level 96L, Carbon Dioxide Level 26, Anion Gap 13, Blood Urea Nitrogen 22H, Creatinine 0.97, Estimat Glomerular Filtration Rate > 60, BUN/Creatinine Ratio 23, Glucose Level 257H, Calcium Level 7.7L, Phosphorus Level 1.5L, Magnesium Level 1.8, Total Bilirubin 2.8H, Direct Bilirubin 1.1H, Indirect Bilirubin 1.7, Aspartate Amino Transf (AST/SGOT) 120H, Alanine Aminotransferase (ALT/SGPT) 197H, Alkaline Phosphatase 88, Total Protein 7.1, Albumin 3.1L, Triglycerides Level 452H, Cholesterol Level 178, LDL Cholesterol Direct 73, VLDL Cholesterol 90H, HDL Cholesterol 17L Microbiology 01/26/20 Influenza Types A,B Antigen (LINDY) - Final, Complete Radiology NAME: CHRIS BARNES [facility] REC#: [id number] PT STATUS: REG ER : 1960 PHYSICIAN: EDIS SHOOK ADMIT DATE: 01/25/20/ER Draft Date of Exam:01/25/20 CHEST 1 VIEW, AP/PA ONLY INDICATION: Chest pain. COMPARISON: None. EXAMINATION: Single view of the chest was obtained. FINDINGS: Slight cardiac enlargement. Lungs are otherwise clear. There is no pneumothorax but osseous structures are normal. IMPRESSION: No acute cardiopulmonary finding. Dictated on workstation # [id number] Dict: 01/25/202135 Trans: 01/25/202145 [facility] [id number] Interpreted by: TOBIAS LEE Electronically signed by: Assessment/Plan Assessment/Plan Admission Dx chest pain heart attack Admission Status: Inpatient Order (span 2 midnights) Assessment & Plan 1. chest pain - continue plavix - continue aspirin - covid negative - decrease steroids today - transfer from ICU to inpatient 2. hypoxia - continue oxygen supplementation 3. acute hepatitis possibly d/t alcoholism - repeat liver enzymes - get liver hep panel - continue IV fluids Clinical Quality Measures AMI/AHF: ASA po Prior to arrival: Yes DVT/VTE Risk/Contraindication: Risk Factor Score Per Nursin RFS Level Per Nursing on Admit: 4+=Very High Supervisory-Addendum Brief Verification & Attestation Participated in pt care: history, MDM, physical Personally performed: exam, history, MDM Care discussed with: Medical Student Procedures: n/a n/a LAUREL MARRERO MD 01/27/20 1146: Objective Exam General: Alert, No Acute Distress Lungs: Other (expiratory rhonchi) Heart: Regular Rate, No Murmurs Extremities: No Edema Neuro: Normal Speech Psych/Mental Status: Mental Status NL Assessment/Plan Assessment/Plan (1) NSTEMI (non-ST elevated myocardial infarction) Status: Acute Assessment & Plan: Cath done yesterday, stent to left circumflex. Plavix, ASA, cannot tolerate statin due to markedly elevated LFTs. (2) COPD exacerbation Status: Acute Assessment & Plan: Improving, decrease solumedrol to 62.5 mg q6. Schedule duonebs q6. Albuterol q4 prn. (3) COPD (chronic obstructive pulmonary disease) Status: Chronic Assessment & Plan: Continue home inhaled steroid/LABA. Qualifiers: Qualified Codes: J42 - Unspecified chronic bronchitis (4) Alcoholism Status: Chronic Assessment & Plan: Encouraged cessation, no signs of withdrawal to date. (5) Tobacco abuse Status: Chronic Assessment & Plan: Strongly encouraged cessation, discussed risk of recurrent heart attack, he states he has smoked for 50 years and is not ready to quit. (6) Chest pain Status: Acute Assessment & Plan: NSTEMI diagnosed. Qualifiers: Qualified Codes: R07.9 - Chest pain, unspecified (7) Hypokalemia Status: Resolved (8) Acute hepatitis Status: Acute Assessment & Plan: LFTs improving today, suspect acute alcoholic hepatitis, possible hypoperfusion due to NV. Hepatitis panel pending. (9) Elevated troponin Status: Acute (10) Acute and chronic respiratory failure with hypoxia Status: Acute Assessment & Plan: Still requiring 4 lpm supplemental oxygen (no baseline requirement prior to admission), secondary to COPD exacerbation. Wean as tolerated. (11) Person under investigation for COVID-19 Status: Resolved Assessment & Plan: NAAT and PCR neg. (12) DVT prophylaxis Status: Acute Assessment & Plan: Enoxaparin Supervisory-Addendum Brief Verification & Attestation Participated in pt care: history, MDM, physical Personally performed: exam, history, MDM Care discussed with: Medical Student Procedures: n/a I personally saw and examined this patient today and did my own history and exam which agree with that documented by the medical student except where my documentation differs. See problem list for my assessment and plan. ZACH SANCHEZ MED STUDENT Jan 27, 2020 11:16 LAUREL MARRERO MD Jan 27, 2020 11:46
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
[2020-01-27] MEDS ORDERED: RT-ALBUTEROL/IPRATROPIUM 3 ML (DUONEB) VIAL INH PRN (17:00)
[2020-01-27 20:33] LABS: HEPATITIS C ANTIBODY C Non-Reactive (Non-Reactive)
[2020-01-27] MEDS: RT-ALBUTEROL/IPRATROPIUM 3 ML (DUONEB) VIAL INH SCH (22:20)
[2020-01-28 00:03] VITALS: BP 163/69
[2020-01-28] MEDS: ENOXAPARIN 40 MG/0.4 ML (LOVENOX) SYR SC SCH ×2 (01:09→13:27)
[2020-01-28] MEDS: NS IV 1000 ML 1,000 ML IV SCH (01:30)
--- NOTE | 2020-01-28 01:49 | NUR ---
This nurse went in to give this patient his scheduled Normal Saline @ 75 mL/hr that was scheduled for 129, and pt refused saying " I don't need the damn thing, I already have enough fluid in my tonsils an body and I'm not taking it, its not going to do me any good and I don't want it." I persisted bt pt willingly denied. PT has previously been scored at a 2 on the CIWA scale, and is alert and oriented. Will continue to monitor and provide care as ordered.
[2020-01-28] MEDS: RT-ALBUTEROL/IPRATROPIUM 3 ML (DUONEB) VIAL INH SCH ×3 (02:32→14:45)
[2020-01-28 04:00] VITALS: BP 147/65
[2020-01-28] MEDS: methylPREDNISolone 125 MG (Solu-MEDROL) VIAL IVP SCH ×2 (04:27→09:05)
[2020-01-28 06:21] LABS: ALBUMIN 3.1 GM/DL (3.2-4.5); CHLORIDE 95 MMOL/L (98-107); HEMOGLOBIN 12.7 g/dL (13.3-17.7); MEAN PLATELET VOLUME 10.2 fL (9.0-12.2); POTASSIUM 3.1 MMOL/L (3.6-5.0); SODIUM 136 MMOL/L (135-145); WHITE BLOOD COUNT 5.4 10^3/uL (4.3-11.0)
[2020-01-28 06:22] LABS: CALCIUM 7.8 MG/DL (8.5-10.1)
[2020-01-28 06:23] LABS: GLUCOSE 259 MG/DL (70-105); TOTAL PROTEIN 6.5 GM/DL (6.4-8.2)
[2020-01-28 06:24] LABS: CARBON DIOXIDE 29 MMOL/L (21-32)
[2020-01-28 06:25] LABS: BILIRUBIN,TOTAL 1.8 MG/DL (0.1-1.0)
[2020-01-28] MEDS: THIAMINE 100 MG (VITAMIN B-1) TAB PO SCH (06:25)
[2020-01-28] MEDS: MULTIVIT W/MINERALS TAB (THERAGRAN M) PO SCH (06:25)
[2020-01-28 06:27] LABS: ALKALINE PHOSPHATASE 78 U/L (40-136); CREATININE SERUM 0.91 MG/DL (0.60-1.30); GFR ESTIMATED > 60
[2020-01-28 06:28] LABS: BUN/CREATININE RATIO 27
[2020-01-28 06:30] LABS: ALANINE AMINOTRANSFERASE 128 U/L (0-55)
[2020-01-28 08:00] VITALS: BP 157/71
[2020-01-28] MEDS: MAGNESIUM OXIDE (MAG-OX)400 MG TAB PO SCH (09:04)
[2020-01-28] MEDS: FOLIC ACID 1 MG TAB PO SCH (09:04)
[2020-01-28] MEDS: ACETAMINOPHEN 325 MG TABLET PO PRN (09:04)
[2020-01-28] MEDS: ASPIRIN 81 MG CHEW (CHILDREN'S ASA) PO SCH (09:04)
[2020-01-28] MEDS: CLOPIDOGREL 75 MG (PLAVIX) TABLET PO SCH (09:04)
[2020-01-28] MEDS: NICOTINE 21 MG (NICODERM) PATCH TD SCH (09:05)
[2020-01-28] MEDS: ADVAIR HFA 115/21 MCG INHALER 8 GM IH SCH (09:18)
[2020-01-28] MEDS: NICOTINE PATCH REMOVAL TP SCH (09:27)
[2020-01-28] MEDS ORDERED: KCL 20 MEQ TAB (K-DUR) PO ONE ×2 (11:00→13:08)
[2020-01-28 12:00] VITALS: BP_SYST 156; BP_SYST 157; BP_DIAS 71; BP_DIAS 87
[2020-01-28] MEDS ORDERED: CLOP75TA28 PO (12:25)
[2020-01-28] MEDS ORDERED: MTP25TSR PO (12:27)
[2020-01-28] MEDS ORDERED: ASPI-999 PO (12:27)
[2020-01-28] MEDS ORDERED: PANT20TA18 PO (12:29)
--- NOTE | 2020-01-28 12:39 | Progress Note - Hospitalist ---
Subjective HPI/CC On Admission Date Seen by Provider: Jan 28, 2020 Time Seen by Provider: 12:36 Subjective/Events-last exam patient denies chest pain or shortness of breath is had no bleeding problems. He reports decreased cough and no sputum production. Objective Exam Vital Signs Vital Signs Date Time Temp Pulse Resp B/P (MAP) Pulse Ox O2 Delivery O2 Flow Rate FiO2 01/28/20 12:25 72 01/28/20 12:00 36.6 20 156/87 (110) 91 Nasal Cannula 01/28/20 09:18 2.00 01/27/20 16:19 36 Capillary Refill : Less Than 3 Seconds General Appearance: No Apparent Distress Respiratory: Chest Non Tender, Lungs Clear, Normal Breath Sounds, No Accessory Muscle Use, No Respiratory Distress Cardiovascular: Regular Rate, Rhythm, No Edema, No Gallop, No JVD, No Murmur, Normal Peripheral Pulses Results/Procedures Lab Laboratory Tests 01/28/20 05:45 Patient resulted labs reviewed. Assessment/Plan Assessment and Plan Assess & Plan/Chief Complaint non-ST segment elevation SD status post circumflex stenting for significant single-vessel disease. Discussed the importance of taking aspirin and Plavix despite the fact that he would continue to have senile purpura for which he was reassured. acute COPD exacerbation significantly improved DC Solu-Medrol switched to prednisone in a.m. Hyperlipidemia consider statin therapy deferred to Dr. BROWN Steroid-related hyperglycemia continue to monitor expect improvement with discontinuance of Solu-Medrol advise lower glycemic dietary choices in the interim. Clinical Quality Measures AMI/AHF: ASA po Prior to arrival: Yes DVT/VTE Risk/Contraindication: Risk Factor Score Per Nursin RFS Level Per Nursing on Admit: 4+=Very High EVA ASENCIO MD Jan 28, 2020 12:39
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
--- NOTE | 2020-01-28 13:03 | NUR ---
sending patient with morning dosage of aspirin and plavix per Dr Zavala and Breanne orders.
[2020-01-28 14:00] VITALS: BP 156/87
[2020-01-29] MEDS ORDERED: predniSONE 20 MG TAB PO SCH (07:00)
[2020-01-29] MEDS ORDERED: IBUPROFEN 600 MG (MOTRIN) TAB PO ONE (09:19)
== END 2020-01-28 14:00 | disposition home or self-care (01) ==
LOC: EDUNIT# 20:42 → ER 20:44 → 4TH 22:27 → ICU 01-26 19:49 → 4TH 01-27 16:58
PROVIDERS: ADMIT Family Medicine; ATTEND Internal Medicine
DX: I25.10 Atherosclerotic heart disease of native coronary artery without angina pectoris (principal); I21.4 Non-ST elevation (NSTEMI) myocardial infarction; J44.9 Chronic obstructive pulmonary disease, unspecified; F17.210 Nicotine dependence, cigarettes, uncomplicated; E78.00 Pure hypercholesterolemia, unspecified; I10 Essential (primary) hypertension; F41.9 Anxiety disorder, unspecified; F32.9 Major depressive disorder, single episode, unspecified; M19.90 Unspecified osteoarthritis, unspecified site; F10.20 Alcohol dependence, uncomplicated; E78.5 Hyperlipidemia, unspecified; J96.21 Acute and chronic respiratory failure with hypoxia; E87.6 Hypokalemia; K75.9 Inflammatory liver disease, unspecified; J44.1 Chronic obstructive pulmonary disease with (acute) exacerbation; R77.8 Other specified abnormalities of plasma proteins; E66.01 Morbid (severe) obesity due to excess calories; Z68.41 Body mass index [BMI] 40.0-44.9, adult; Z79.899 Other long term (current) drug therapy; Z79.02 Long term (current) use of antithrombotics/antiplatelets; Z88.8 Allergy status to other drugs, medicaments and biological substances; Z20.828 Contact with and (suspected) exposure to other viral communicable diseases; W57.XXXA Bitten or stung by nonvenomous insect and other nonvenomous arthropods, initial encounter
CPT/HCPCS: 36415; 71045; 80048; 80053; 80061; 80074; 80076; 80306; 80320; 80329; 81000; 83735; 83874; 83880; 84100; 84484; 85025; 85027; 85610; 85730; 86141; 87081; 87635; 87804; 90686; 93005; 93041; 93306; 93458; 94640; 96360; G0378

== ENCOUNTER 2020-12-19 16:01 | Inpatient (IN) | payer MEDICARE, MEDICAID ==
[~2020-12-19] VITALS: Ht 180 cm; Wt 117.7 kg
[~2020-12-19 16:01] MED LIST: ACET-2267 PO; ASPI-999 PO; ATEN1TAB3 PO; BUDE10.2 INH; CLON2TAB12 PO; CLOP75TA28 PO; GABA-486; MELO7.5T46 PO; MTP25TSR PO; PANT20TA18 PO; POTA10TA; POTA10TA6 PO; RT-ALBUINH INH
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
[2020-12-19] MEDS ORDERED: IBUPROFEN 800 MG (MOTRIN) TAB PO ONE ×2 (16:24→16:30)
[2020-12-19 17:16] LABS: HEMOGLOBIN 13.7 g/dL (13.3-17.7); LYMPHOCYTES # (AUTO) 2.5 10^3/uL (1.0-4.0)
[2020-12-19 17:18] LABS: BASOPHILS # (AUTO) 0.1 10^3/uL (0.0-0.1); BASOPHILS % (AUTO) 1 % (0-10); EOSINOPHILS # (AUTO) 0.2 10^3/uL (0.0-0.3); EOSINOPHILS % (AUTO) 2 % (0-10); HEMATOCRIT 41 % (40-54); LYMPHOCYTES % (AUTO) 28 % (12-44); MEAN CORPUSCULAR HEMOGLOBIN 36 pg (25-34); MEAN CORPUSCULAR HGB CONC 33 g/dL (32-36); MEAN CORPUSCULAR VOLUME 108 fL (80-99); MEAN PLATELET VOLUME 10.4 fL (9.0-12.2); MONOCYTES # (AUTO) 0.7 10^3/uL (0.0-1.0); MONOCYTES % (AUTO) 8 % (0-12); NEUTROPHILS # (AUTO) 5.5 10^3/uL (1.8-7.8); NEUTROPHILS % (AUTO) 62 % (42-75); PLATELET COUNT 81 10^3/uL (130-400); WHITE BLOOD COUNT 8.8 10^3/uL (4.3-11.0)
[2020-12-19 17:31] LABS: ALBUMIN 3.2 GM/DL (3.2-4.5); POTASSIUM 4.2 MMOL/L (3.6-5.0)
[2020-12-19 17:32] LABS: CALCIUM 8.5 MG/DL (8.5-10.1)
[2020-12-19 17:35] LABS: BILIRUBIN,TOTAL 1.2 MG/DL (0.1-1.0)
[2020-12-19 17:37] LABS: CREATININE SERUM 0.75 MG/DL (0.60-1.30)
[2020-12-19 17:42] LABS: ABG BASE EXCESS 2.3 MMOL/L (-2.5-2.5); ABG OXYGEN SATURATION 92 % (94-100); ABG PCO2 48 MMHG (35-45); ABG PH 7.37 (7.37-7.43); ABG PO2 70 MMHG (79-93); ABG TCO2 28.5 MMOL/L (21.0-31.0); VENTILATOR NO
[2020-12-19 17:45] LABS: ALLENS TEST YES-POS
[2020-12-19 17:46] LABS: INSPIRED O2 ROOM AIR; PATIENT TEMP 37.2
[2020-12-19 17:48] LABS: EOSINOPHILS % (MANUAL) 1 %; LYMPHOCYTES % (MANUAL) 37 %; MONOCYTES % (MANUAL) 9 %; NEUTROPHILS % (MANUAL) 53 %
[2020-12-19] MEDS ORDERED: IOHEXOL 350 MG/ML 100 ML (OMNIPAQUE 350) VIAL IV ONE (18:15)
[2020-12-19] MEDS ORDERED: HOLD METFORMIN - RECEIVED CONTRAST 20 ML VIAL IV SCH (18:15)
[2020-12-19] MEDS ORDERED: CATHETER FLUSH 10 ML SYR IV PRN ×2 (18:15→20:45)
[2020-12-19] MEDS ORDERED: NS 100 ML (IVPB) BAG IV ONE (18:15)
[2020-12-19 19:00] LABS: BILIRUBIN,URINE NEGATIVE (NEGATIVE); CLARITY,URINE CLEAR; COLOR,URINE YELLOW; GLUCOSE, URINE (UA) NEGATIVE (NEGATIVE); KETONES,URINE NEGATIVE (NEGATIVE); LEUKOCYTE ESTERASE ,URINE NEGATIVE (NEGATIVE); NITRITE,URINE NEGATIVE (NEGATIVE); PH,URINE 5.5 (5-9); PROTEIN,URINE TRACE (NEGATIVE)
--- NOTE | 2020-12-19 19:05 | Diagnostic Imaging Report ---
PROCEDURE: CT head and CT cervical spine without contrast. TECHNIQUE: Multiple contiguous axial images were obtained through the brain and cervical spine without the use of intravenous contrast. Sagittal and coronal reformations through the cervical spine were then performed. Auto Exposure Controls were utilized during the CT exam to meet ALARA standards for radiation dose reduction. INDICATION: Fall. Altered mental status. COMPARISON: None. FINDINGS: CT head: Moderate generalized parenchymal volume loss. No intracranial hemorrhage, mass effect, hydrocephalus or extra-axial fluid collection. Osseous structures are intact. Paranasal sinuses and mastoids are clear. CT cervical spine: Examination of the cervical spine is limited due to motion despite repeated scanning. No fracture is identified. There are multiple metallic radiopaque foreign bodies in the left neck adjacent to the C2 transverse process and along the occipital bone. Osteophyte formation appears to result in at least moderate spinal canal stenosis at C6-C7 and C7-T1. Mild atherosclerotic calcifications in the carotid bifurcations. IMPRESSION: 1. No acute intracranial CT finding. 2. Evaluation of the cervical spine is limited by motion despite repeated scanning. No fracture is identified. 3. Multiple metallic radiopaque foreign bodies in the left neck adjacent to the C2 transverse process and left occipital bone. Recommend correlation with history. 4. Spondylotic changes likely result in high-grade spinal canal stenosis at C6-C7 and C7-T1. This could be further evaluated with MRI. Dictated by: Dictated on workstation # [id number]
[2020-12-19 19:08] LABS: BACTERIA,URINE TRACE /HPF; RBC,URINE 0-2 /HPF
[2020-12-19 19:09] LABS: AMORPHOUS SEDIMENT,UR FEW AMOR URATES /LPF
--- NOTE | 2020-12-19 19:17 | Diagnostic Imaging Report ---
PROCEDURE: CT chest, abdomen, and pelvis with contrast. TECHNIQUE: Multiple contiguous axial images were obtained through the chest, abdomen, and pelvis after the administration of intravenous contrast. Auto Exposure Controls were utilized during the CT exam to meet ALARA standards for radiation dose reduction. INDICATION: Abdominal bruising. Fall. Altered mental status. Intoxicated. COMPARISON: None. FINDINGS: CT chest: Innumerable groundglass nodular opacity and overlying tree-in-bud opacity scattered throughout the left lung strongly suspicious for aspiration pneumonitis. No pleural effusion or pneumothorax. Normal heart size. No pericardial effusion. No lymphadenopathy. Normal caliber central pulmonary arteries and thoracic aorta. No acute osseous finding. CT abdomen and pelvis: Nodular cirrhotic contour of the liver. No focal mass or fluid collection is identified. Cholelithiasis without CT evidence of cholecystitis. Splenomegaly. The pancreas, adrenals, kidneys, collecting systems and bladder are unremarkable. No evidence of appendicitis. No free intraperitoneal air or fluid. No lymphadenopathy. No evidence of bowel obstruction. No acute osseous finding. The left abdominal wall is not entirely included on the [id number]. IMPRESSION: 1. Opacities throughout the left lung strongly suspicious for aspiration pneumonitis. 2. Cirrhotic nodular contour of the liver. Splenomegaly. 3. Cholelithiasis without CT findings of cholecystitis. Dictated by: Dictated on workstation # [id number]
[2020-12-19 20:02] LABS: INR 1.2 (0.8-1.4); PROTHROMBIN TIME PATIENT 15.6 SEC (12.2-14.7)
[2020-12-19 20:36] VITALS: BP 168/73
[2020-12-19] MEDS ORDERED: SENNA W/DOCUSATE (SENOKOT S) TABLET PO PRN (20:45)
[2020-12-19] MEDS ORDERED: D5 1/2 NS 1000 ML IV SOLUTION 1,000 ML IV PRN (20:45)
[2020-12-19] MEDS ORDERED: 1/2 NS IV SOLUTION 1,000 ML IV PRN (20:45)
[2020-12-19] MEDS ORDERED: ANTACID SUSP 30 ML UDC (MYLANTA) PO PRN (20:45)
[2020-12-19] MEDS ORDERED: LORazepam 1 MG (ATIVAN) TAB PO PRN (20:45)
[2020-12-19] MEDS ORDERED: ONDANSETRON 4 MG/2 ML (SDV) Z0FRAN IV PRN ×2 (20:45)
[2020-12-19] MEDS ORDERED: LORazepam INJ 2 MG/ML (ATIVAN) VIAL IM/IV PRN (20:45)
[2020-12-19] MEDS ORDERED: RT-ALBUTEROL/IPRATROPIUM 3 ML (DUONEB) VIAL INH PRN (21:00)
[2020-12-19] MEDS: methylPREDNISolone 40 MG/ML (Solu-MEDROL) VIAL IV SCH (21:33)
[2020-12-19] MEDS: cefTRIAXone 1,000 MG/SWFI 10 ML IV PUSH IV SCH ×2 (21:33)
[2020-12-19] MEDS: ONDANSETRON 4 MG (ZOFRAN) ORAL DISSOLVE TAB SL PRN (21:41)
[2020-12-19] MEDS: MAGNESIUM OXIDE (MAG-OX)400 MG TAB PO SCH (21:41)
[2020-12-19] MEDS: RT-ALBUTEROL/IPRATROPIUM 3 ML (DUONEB) VIAL INH SCH (21:57)
[2020-12-19] MEDS: CATHETER FLUSH 10 ML SYR IV SCH (22:29)
[2020-12-19] MEDS: ACETAMINOPHEN 500 MG TAB (TYLENOL) PO PRN (22:31)
[2020-12-20] MEDS: LORazepam INJ 2 MG/ML (ATIVAN) VIAL IV PRN ×4 (00:04→05:59)
[2020-12-20] MEDS: RT-ALBUTEROL/IPRATROPIUM 3 ML (DUONEB) VIAL INH SCH ×6 (03:06→22:41)
[2020-12-20] MEDS: MULTIVIT W/MINERALS TAB (THERAGRAN M) PO SCH (05:40)
[2020-12-20] MEDS: CATHETER FLUSH 10 ML SYR IV SCH ×3 (05:40→22:25)
[2020-12-20] MEDS: methylPREDNISolone 40 MG/ML (Solu-MEDROL) VIAL IV SCH (05:40)
[2020-12-20 05:41] LABS: BASOPHILS % (AUTO) 0 % (0-10); EOSINOPHILS % (AUTO) 0 % (0-10); HEMATOCRIT 39 % (40-54); HEMOGLOBIN 12.5 g/dL (13.3-17.7); LYMPHOCYTES # (AUTO) 0.6 10^3/uL (1.0-4.0); LYMPHOCYTES % (AUTO) 7 % (12-44); MEAN CORPUSCULAR HEMOGLOBIN 35 pg (25-34); MEAN CORPUSCULAR HGB CONC 32 g/dL (32-36); MEAN CORPUSCULAR VOLUME 108 fL (80-99); MEAN PLATELET VOLUME 10.5 fL (9.0-12.2); MONOCYTES # (AUTO) 0.4 10^3/uL (0.0-1.0); MONOCYTES % (AUTO) 4 % (0-12); NEUTROPHILS # (AUTO) 7.8 10^3/uL (1.8-7.8); NEUTROPHILS % (AUTO) 88 % (42-75); PLATELET COUNT 53 10^3/uL (130-400); WHITE BLOOD COUNT 8.8 10^3/uL (4.3-11.0)
[2020-12-20] MEDS: THIAMINE 100 MG (VITAMIN B-1) TAB PO SCH (05:41)
[2020-12-20 05:59] LABS: CALCIUM 8.3 MG/DL (8.5-10.1)
[2020-12-20 06:03] LABS: CREATININE SERUM 0.82 MG/DL (0.60-1.30)
[2020-12-20] MEDS: NICOTINE PATCH REMOVAL TP SCH (06:54)
[2020-12-20] MEDS ORDERED: inSUlin ASPART (NovoLOG) 1 UNIT/0.01 ML (CHARGE PER UNIT) SC SCH ×2 (08:00→11:30)
--- NOTE | 2020-12-20 08:08 | History & Physical-Hospitalist ---
History of Present Illness HPI/Chief Complaint Is a 60-year-old male with past medical history of coronary artery disease, alcohol abuse, hypertension, diabetes who presented to the emergency department due to generalized pain. Per ER report he summoned EMS due to pain all over his body from "3 different types of arthritis." On EMS arrival they found his home to be quite disheveled and multiple empty bottles of alcohol scattered throughout his home. He was incidentally found to be hypoxic. He does smoke regularly. His Covid swab was negative. He was admitted to [facility] for his hypoxia. This morning he denies any generalized pain and states that he was here for chest pain that radiated to his left arm. He does not follow with a huc ob. He did have a cardiac cath done in January of last year with stent deployment. He denies any current chest pain. He did complain of weakness and falls still. He was recently admitted to [facility] for falls and weakness with alcohol intoxication. He has been planning to admit to [facility] but has been waiting for a bed. He denied significant alcohol use and states he only drank a couple sips of beer and maybe 1 glass of vodka all day yesterday. We discussed that his alcohol level was 270 on arrival and that is inconsistent with that much alcohol. He then reports that once he starts drinking he frequently loses track but that he does not drink daily and has gone months without drinking without withdrawal. Date Seen 12/20/20 Time Seen by a Provider: 09:10 Attending Physician Preethi Maldonado MD PCP No,Local Physician Referring Physician Date of Admission Dec 19, 2020 at 19:02 Home Medications & Allergies Home Medications Reviewed patient Home Medication Reconciliation performed by pharmacy medication reconciliations cable television technician and/or nursing. Patients Allergies have been reviewed. Allergies Allergies Coded Allergies paroxetine (Verified Allergy, Unknown, 01/25/20) Past Bxutfad-Wzipal-Cslnhj Hx Patient Social History Employed/Student: unemployed Tobacco Use?: Yes Tobacco type used: Cigarettes Smoking Status: Current Everyday Smoker Smokeless Tobacco Frequency: Former User Use of E-Cig and/or Vaping dev: No Substance use?: Yes Substance type: Marijuana Substance frequency: Couple times a week Alcohol Use?: Yes Alcohol type: Beer, Hard Liquor, Wine Alcohol Frequency: Couple times a week Pt feels they are or have been: No Immunizations Up To Date Tetanus Booster (TDap): Less Than 5 Years Hepatitis A: No Hepatitis B: No Seasonal Allergies Seasonal Allergies: Yes Current Status Advance Directives: No Communicates: Verbally Primary Language: Ukrainian Preferred Spoken Language: Ukrainian Is interpretation needed?: No Sensory deficits: Hearing impairment Implanted or Applied Medical D: Stents Past Medical History Surgeries: Coronary Stent COPD Coronary Artery Disease, High Cholesterol, Hypertension Ulcer Arthritis, Fractures Diabetes, Non-Insulin dep Cataract Loss of Vision: Bilateral Anxiety, Depression Blood Disorders: No PMHx: COPD HTN HLD Family Medical History Reviewed Nursing Family Hx Heart Disease (Heart failure in grandfather) Review of Systems Constitutional: No chills, No fever; malaise EENTM: no symptoms reported Respiratory: No cough, No short of breath Cardiovascular: chest pain; No edema; Hx of Intervention Gastrointestinal: No abdominal pain, No constipation, No diarrhea, No nausea, No vomiting Genitourinary: no symptoms reported Musculoskeletal: muscle pain, muscle weakness Skin: no symptoms reported Psychiatric/Neurological: No Symptoms Reported Physical Exam Physical Exam Vital Signs Vital Signs - First Documented 12/19/20 12/19/20 12/19/20 16:01 19:00 20:36 Temp 37.2 Pulse 122 Resp 20 B/P (MAP) 168/73 (104) Pulse Ox 95 O2 Delivery Nasal Cannula O2 Flow Rate 6.00 FiO2 28 Capillary Refill : Less Than 3 Seconds Height, Weight, BMI Height: '" Weight: lbs. oz. kg; 37.65 BMI Method: General Appearance: No Apparent Distress, Chronically ill, Obese HEENT: PERRL/EOMI, Moist Mucous Membranes; No Scleral Icterus (L), No Scleral Icterus (R) Neck: Normal Inspection, Supple Respiratory: Lungs Clear, No Respiratory Distress Cardiovascular: Regular Rate, Rhythm, No JVD, No Murmur Gastrointestinal: Normal Bowel Sounds, Non Tender, Soft Extremity: Normal Capillary Refill, No Calf Tenderness, No Pedal Edema Neurologic/Psychiatric: Alert, Oriented x3, Normal Mood/Affect Skin: Ecchymosis (on abdomen, arms, and legs in various stages of healing) Results Results/Procedures Labs Laboratory Tests 12/19/20 17:06 12/20/20 04:55 Patient resulted labs reviewed. Imaging: Reviewed Imaging Report Imaging [facility] [place], [place] NAME: CHRIS BARNES [facility] REC#: [id number] PT STATUS: ADM IN : 1960 PHYSICIAN: JESSICA GRAYSON APRN ADMIT DATE: 12/19/20/CSD Signed Date of Exam:12/19/20 CT HEAD/CERVICAL SPINE WO PROCEDURE: CT head and CT cervical spine without contrast. TECHNIQUE: Multiple contiguous axial images were obtained through the brain and cervical spine without the use of intravenous contrast. Sagittal and coronal reformations through the cervical spine were then performed. Auto Exposure Controls were utilized during the CT exam to meet ALARA standards for radiation dose reduction. INDICATION: Fall. Altered mental status. COMPARISON: None. FINDINGS: CT head: Moderate generalized parenchymal volume loss. No intracranial hemorrhage, mass effect, hydrocephalus or extra-axial fluid collection. Osseous structures are intact. Paranasal sinuses and mastoids are clear. CT cervical spine: Examination of the cervical spine is limited due to motion despite repeated scanning. No fracture is identified. There are multiple metallic radiopaque foreign bodies in the left neck adjacent to the C2 transverse process and along the occipital bone. Osteophyte formation appears to result in at least moderate spinal canal stenosis at C6-C7 and C7-T1. Mild atherosclerotic calcifications in the carotid bifurcations. IMPRESSION: 1. No acute intracranial CT finding. 2. Evaluation of the cervical spine is limited by motion despite repeated scanning. No fracture is identified. 3. Multiple metallic radiopaque foreign bodies in the left neck adjacent to the C2 transverse process and left occipital bone. Recommend correlation with history. 4. Spondylotic changes likely result in high-grade spinal canal stenosis at C6-C7 and C7-T1. This could be further evaluated with MRI. Dictated by: Dictated on workstation # [id number] Dict: 12/19/20 1846 Trans: 12/19/202001 PJE [id number] Interpreted by: MARCOS SMALLS MD Electronically signed by: MARCOS SMALLS MD 12/19/202001 [facility] [place], [place] NAME: CHRIS BARNES [facility] REC#: [id number] PT STATUS: ADM IN : 1960 PHYSICIAN: JESSICA GRAYSON APRN ADMIT DATE: 12/19/20/CSD Signed Date of Exam:12/19/20 CT CHEST/ABDOMEN/PELVIS W PROCEDURE: CT chest, abdomen, and pelvis with contrast. TECHNIQUE: Multiple contiguous axial images were obtained through the chest, abdomen, and pelvis after the administration of intravenous contrast. Auto Exposure Controls were utilized during the CT exam to meet ALARA standards for radiation dose reduction. INDICATION: Abdominal bruising. Fall. Altered mental status. Intoxicated. COMPARISON: None. FINDINGS: CT chest: Innumerable groundglass nodular opacity and overlying tree-in-bud opacity scattered throughout the left lung strongly suspicious for aspiration pneumonitis. No pleural effusion or pneumothorax. Normal heart size. No pericardial effusion. No lymphadenopathy. Normal caliber central pulmonary arteries and thoracic aorta. No acute osseous finding. CT abdomen and pelvis: Nodular cirrhotic contour of the liver. No focal mass or fluid collection is identified. Cholelithiasis without CT evidence of cholecystitis. Splenomegaly. The pancreas, adrenals, kidneys, collecting systems and bladder are unremarkable. No evidence of appendicitis. No free intraperitoneal air or fluid. No lymphadenopathy. No evidence of bowel obstruction. No acute osseous finding. The left abdominal wall is not entirely included on the wttik-tq-ojru. IMPRESSION: 1. Opacities throughout the left lung strongly suspicious for aspiration pneumonitis. 2. Cirrhotic nodular contour of the liver. Splenomegaly. 3. Cholelithiasis without CT findings of cholecystitis. Dictated by: Dictated on workstation # [id number] Dict: 12/19/20 1854 Trans: 12/19/202001 [facility] [id number] Interpreted by: MARCOS SMALLS MD Electronically signed by: MARCOS SMALLS MD 12/19/202001 Assessment/Plan Admission Diagnosis COPD exacerbation Admission Status: Inpatient Order (span 2 midnights) Reason for Inpatient Admission: see below Assessment and Plan COPD exacerbation Continue steroids I titrated oxygen off while at bedside as he was satting 99% on 2lpm He remained satting 95%+ while I was in room Procla mildly elevated, continue Rocephin Debility Falls Alcohol abuse Alcoholic liver disease PT/OT Was attempting to get in to a NH prior to admission financial services assistant consulted, appreciate recs Advised to stop drinking in excess as this is contributing to his falls and weakness Hyperglycemia Reports knowing he has problems with blodo sugars but unsure if ever diagnosed Does not appear to fill anything for DM fasting blood sugar 262 this AM- likely worsened some by steroids a1c ordered SSI Chest pain CAD New complaint this morning Troponin ordered EKG Consulted cardiology, appreciate assistance Telemetry DVT ppx: SCD only due to thrombocyotpenia Diagnosis/Problems Diagnosis/Problems (1) CAD (coronary artery disease) Status: Chronic Qualifiers: Coronary Disease-Associated Artery/Lesion type: [place] artery [place] vs. transplanted heart: [place] heart Associated angina: without angina Qualified Codes: I25.10 - Atherosclerotic heart disease of [place] coronary artery without angina pectoris (2) Essential (primary) hypertension Status: Chronic (3) HLD (hyperlipidemia) Status: Chronic Qualifiers: Hyperlipidemia type: mixed hyperlipidemia Qualified Codes: E78.2 - Mixed hyperlipidemia (4) Hyperglycemia Status: Chronic (5) Debility Status: Acute (6) Obesity Status: Chronic Qualifiers: Obesity classification: adult class 3 (BMI >= 40) Body mass index: BMI 40.0-44.9 (7) Prophylactic measure (8) Thrombocytopenia Status: Chronic (9) Alcoholic cirrhosis of liver Status: Chronic Qualifiers: Ascites presence: without ascites Qualified Codes: K70.30 - Alcoholic cirrhosis of liver without ascites (10) COPD exacerbation Status: Acute (11) Chest pain Status: Acute Qualifiers: Chest pain type: unspecified Qualified Codes: R07.9 - Chest pain, unspecified (12) Alcoholism Status: Chronic (13) Tobacco abuse Status: Chronic PREETHI MALDONADO MD Dec 20, 2020 08:08
[2020-12-20] MEDS: NICOTINE 14 MG (NICODERM) PATCH TD SCH (08:17)
[2020-12-20] MEDS: MAGNESIUM OXIDE (MAG-OX)400 MG TAB PO SCH ×2 (08:17→20:31)
[2020-12-20] MEDS: PANTOPRAZOLE 40 MG (PROTONIX) VIAL IV SCH (08:17)
[2020-12-20] MEDS: ONDANSETRON 4 MG (ZOFRAN) ORAL DISSOLVE TAB SL PRN (08:17)
[2020-12-20] MEDS: FOLIC ACID 1 MG TAB PO SCH (08:17)
[2020-12-20] MEDS ORDERED: inSUlin ASPART (NovoLOG) 1 UNIT/0.01 ML (CHARGE PER UNIT) ONE (11:42)
[2020-12-20] MEDS ORDERED: LOPE-134 PO (13:29)
[2020-12-20] MEDS ORDERED: MTP25TSR PO (13:29)
[2020-12-20] MEDS ORDERED: PANT20TA18 PO (13:29)
[2020-12-20] MEDS ORDERED: DOCU100T7 PO (13:29)
[2020-12-20] MEDS ORDERED: CLOP75TA69 PO (13:29)
[2020-12-20] MEDS: inSUlin ASPART (NovoLOG) 1 UNIT/0.01 ML (CHARGE PER UNIT) SC SCH ×3 (13:37→20:30)
--- NOTE | 2020-12-20 13:51 | Physical Therapy Progress Note ---
Therapy Progress Note Order for PT evaluation received. Patient refuses to participate though. Patient states he just needs to rest. The benefits of therapy are explained to patient but he continues to refuse. Patient states, "I'm not going to do it right now, maybe tomorrow." RANDOLPH MCFARLAND PT Dec 20, 2020 13:51
--- NOTE | 2020-12-20 14:22 | Occupational Therapy Eval ---
OT Evaluation-General/PLF Medical Diagnosis Admission Date Dec 19, 2020 at 19:02 Medical Diagnosis: COPD exacerbation Onset Date: Dec 19, 2020 Therapy Diagnosis Therapy Diagnosis: Impaired ADLs, IADLs, balance, endurance, strength, coordination Precautions Precautions/Isolations: Seizure, Fall Prevention, Standard Precautions Safety Interventions: Bed Exit Alarm Referral Physician: alan Browne Reason: Evaluation/Treatment Medical History Pertinent Medical History: Alcoholism, CAD, COPD, DM, HTN Current History Pt presents to hospital with generalized pain. Per report, pt found in disheveled home with multiple empty alcohol bottles scattered throughout. He was found to be hypoxic. Pt reports living alone in a first floor apartment. He was indep with dressing and toileting. He Reports he hasn't taken a full shower in a long time because he cannot get in/out of tub. Pt states he owns a walker, w/c, and a cane but was not using them prior to admission. He has a caregiver 3x/week to assist with laundry, cleaning, grocery shopping, and transportation. Pt usually eats simple/microwavable meals. Reviewed History: Yes Social History Home: Apartment Current Living Status: Alone Entry Into Home: Level Entry ADL-Prior Level of Function SCALE: Activities may be completed with or without assistive devices. 6-Sveqxhcsmb-fsjcmfu completes the activity by him/herself with no assistance from a helper. 5-Set-up or Clean-up Assistance-helper sets up or cleans up; patient completes activity. [place] assists only prior to or following the activity. 4-Supervision or Touching Assistance-helper provides verbal cues and/or touching/steadying and/or contact guard assistance as patient completes activity. Assistance may be provided throughout the activity or intermittently. 3-Partial/Moderate Assistance-helper does LESS THAN HALF the effort. [place] lifts, holds or supports trunk or limbs, but provides less than half the effort. 2-Substantial/Maximal Assistance-helper does MORE THAN HALF the effort. [place] lifts or holds trunk or limbs and provides more than half the effort. 2-Zvgbpyxok-uuwvdx does ALL the effort. Patient does none of the effort to complete the activity. Or, the assistance of 2 or more helpers is required for the patient to complete the activity. If activity was not attempted, code reason: 7-Patient Refused. 9-Not Applicable-not attempted and the patient did not perform the activity before the current illness, exacerbation or injury. 10-Not Attempted due to Environmental Limitations-(lack of equipment, weather restraints, etc.). 88-Not Attempted due to Medical Conditions or Safety Concerns. Self Care: Needed Some Help Functional Cognition: Needed Some Help Drive Self: No Leisure Interests: Pt reports sedentary lifestyle and will usually spend all day watching tv. OT Current Status Subjective "I'm in too much pain and too tired to get up." Appearance Pt left supine in bed. all needs within reach. Mental Status/Objective Patient Orientation: Person, Place Attachments: IV, Oxygen Current Dentures/Partials: No Hand Dominance: Right Upper Extremity ROM WFL with extra time. Upper Extremity Coordination Fair Upper Extremity Strength Debilitated, 3/5 throughout. Reports severe arthritis throughout. ADL-Treatment Lower Body Dressing (QC): 1 On/Off Footwear (QC): 1 Other Treatments Pt refuses any OOB/EOB activities. Requires encouragement/education on purpose of therapy, yet continues to refuse. 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 Able to perform with SBA. Pt verbalizes poor sitting balance, thus would need assist with ADLs sitting at EOB. Education OT Patient Education: Progress toward Goal/Update tx plan, Purpose of tx/functional activities, Rehab process, Safety issues, Transfer techniques Teaching Recipient: Patient Teaching Methods: Discussion Response to Teaching: Unable to Return Demonstration, Reinforcement Needed OT Fold Skiver Goals Fold Skiver Goals Oral Hygiene (QC): 4 Toileting Hygiene (QC): 4 Lower Body Dressing (QC): 4 On/Off Footwear (QC): 4 1=Demonstrate adherence to instructed precautions during ADL tasks. 2=Patient will verbalize/demonstrate understanding of assistive devices/modifications for ADL. 3=Patient will improve strength/tolerance for activity to enable patient to perform ADL's. OT Education/Plan Problem List/Assessment Assessment: Decreased Activ Tolerance, Decreased Safety Aware, Decreased UE Strength, Impaired Bed Mobility, Impaired Coordination, Impaired Funct Balance, Impaired I ADL's, Impaired Self-Care Skills, Restricted Funct UE ROM Discharge Recommendations Plan/Recommendations: Continue POC Therapy Discharge Recommendati: Other, See Comments Comment Ongoing assessment. Pt Was attempting to get in to a NH prior to admission Barriers to Progress motivation/participation. Treatment Plan/Plan of Care Treatment,Training & Education: Yes Patient would benefit from OT for education, treatment and training to promote independence in ADL's, mobility, safety and/or upper extremity function for ADL's. Plan of Care: ADL Retraining, Functional Mobility, UE Funct Exercise/Act Treatment Duration: Jan 04, 2021 Frequency: 5 times per week Estimated Hrs Per Day: .25 hour per day Rehab Potential: Guarded Time/GCodes Start Time: 13:38 Stop Time: 13:48 Total Time Billed (hr/min): 10 Billed Treatment Time 1, Ama Liu OT Dec 20, 2020 14:22
--- NOTE | 2020-12-20 15:54 | Consultation-Cardiology ---
HPI-Cardiology Cardiology Consultation: Date of Consultation 12/20/2020 Date of Admission 12/19/2020 Attending Physician Esmer Maldonado MD Admitting Physician No,Local Physician Consulting Physician NANCY GIVENS JR, MD HPI: Time Seen by a Provider: 15:49 Chief Complaint: Reason for consultation: Chest pain in the setting of known coronary artery disease. I saw Maik on the cardiac stepdown unit this afternoon. He has a history of coronary artery disease with a previous drug-eluting stent to his left circumflex coronary artery in January 2020. Following that procedure, he was lost to cardiology follow-up. He tells me that yesterday he was having severe substernal chest discomfort with radiation to his left arm. He did not seek immediate medical attention. He had been drinking both beer and vodka for much of the day yesterday. He eventually came to the emergency room because he said he hurt all over and felt like he had been hit by a truck. When he arrived in the emergency room, he was intoxicated. Apparently, it was difficult for the emergency room provider to obtain any sort of meaningful history. He was admitted to the hospital for further treatment and evaluation. This morning he was seen by the hospitalist and reported that he had been having chest pain. As such, a cardiology consultation was requested. When I saw the patient, he tells me his chest discomfort had subsided. He states that he had been having this off and on earlier today. He also complains of dyspnea on exertion and paroxysmal nocturnal dyspnea. He denies orthopnea or palpitations. He has had some frequent lightheaded spells and many falls. He denies syncope. He has had some mild ankle edema. He smokes 1 pack of cigarettes per day. He states that he is a binge drinker. He does not have any form of transportation and has not been able to come to [place] for his cardiac care. He tells me his primary provider is just 3 blocks from his house and his home health web assistant can bring him there in a wheelchair. However, he reports that he has not seen his primary provider in quite some time. He does tell me that he has been taking all of his medications. Certain portions of this document may have been dictated utilizing voice recognition technology. Inherent to this technology, typographical and grammatical errors may exist. As much as I am diligent to identify and correct these mistakes, some errors may remain in the document. Review of Systems-Cardiology Review of Systems Other comments Review of 10 organ systems is as per the history of present illness, otherwise negative. [facility] Hx Patient Social History Employed/Student: unemployed Smoking Status: Current Everyday Smoker 2nd Hand Smoke Exposure: Yes Have you traveled recently?: No Alcohol Use?: Yes Substance type: Marijuana Pt feels they are or have been: No Tobacco type used: Cigarettes Past Medical History PMH As described under Assessment. Family Medical History Family Medical History: He reports his mother had CAD with an NE in her 50's. Allergies and Home Medications Allergies Coded Allergies: paroxetine (Verified Allergy, Unknown, 01/25/20) Patient Home Medication List Home Medication List Reviewed: Yes Acetaminophen (Tylenol Extra Strength) 500 Mg Tablet, 1,000 MG PO Q8H PRN for PAIN-MILD (1-4), (Reported) Entered as Reported by: SELINA ANDRADE on 01/26/20 1152 Last Action: Reviewed Albuterol Sulfate (Proair Hfa) 1 Puff Puff, 2 PUFF INH Q4H PRN for SHORTNESS OF BREATH, (Reported) Entered as Reported by: ANDREEA HATFIELD on 01/25/202155 Last Action: Reviewed Aspirin (Aspirin) 81 Mg Tab.chew, 81 MG PO DAILY Prescribed by: EVA ASENCIO on 01/28/20 1227 Last Action: Reviewed Atenolol/Chlorthalidone (Atenolol-Chlorthalidone 50-25) 1 Each Tablet, 1 EA PO 1800 W/DINNER, (Reported) Entered as Reported by: ANDREEA HATFIELD on 01/25/202150 Last Action: Reviewed Budesonide/Formoterol Fumarate (Symbicort 160-4.5 Mcg Inhaler) 10.2 Gm Hfa.aer.ad, 2 PUFF INH BID, (Reported) Entered as Reported by: ANDREEA HATFIELD on 01/25/202155 Last Action: Reviewed Clonazepam (Clonazepam) 2 Mg Tablet, 2 MG PO TID PRN for ANXIETY, (Reported) Entered as Reported by: ANDREEA HATFIELD on 01/25/202150 Last Action: Reviewed Clopidogrel Bisulfate (Plavix) 75 Mg Tablet, 75 MG PO DAILY, (Reported) Entered as Reported by: SELINA ANDRADE on 9/9/21 1329 Last Action: Reviewed Docusate Sodium (Stool Softener) 100 Mg Tablet, 100 MG PO BID PRN for CONSTIPATION-1ST LINE, (Reported) Entered as Reported by: SELINA ANDRADE on 12/20/201328 Last Action: Reviewed Loperamide HCl (Imodium A-D) 2 Mg Tablet, 2-4 MG PO QID PRN for DIARRHEA, (Reported) Entered as Reported by: SELINA ANDRADE on 12/20/201328 Last Action: Reviewed Meloxicam (Meloxicam) 7.5 Mg Tablet, 7.5 MG PO DAILY PRN for MUSCLE CRAMPS, (Reported) Entered as Reported by: ANDREEA HATFIELD on 01/25/202155 Last Action: Reviewed Metoprolol Succinate (Metoprolol Succinate) 25 Mg Tab.er.24h, 25 MG PO DAILY, (Reported) Entered as Reported by: SELINA ANDRADE on 12/20/201328 Last Action: Reviewed Pantoprazole Sodium (Pantoprazole Sodium) 20 Mg Tablet.dr, 20 MG PO DAILY, (Reported) Entered as Reported by: SELINA ANDRADE on 12/20/201328 Last Action: Reviewed Potassium Chloride (Klor-Con 10) 10 Meq Tablet.er, 10 MEQ PO BID, (Reported) Entered as Reported by: SELINA ANDRADE on 01/26/20 1151 Last Action: Reviewed Discontinued Medications Clopidogrel Bisulfate (Clopidogrel) 75 Mg Tablet, 75 MG PO DAILY Discontinued Reason: Duplicate Order Prescribed by: EVA ASENCIO on 01/28/20 1225 Last Action: Discontinued Metoprolol Succinate (Metoprolol Succinate) 25 Mg Tab.er.24h, 25 MG PO DAILY Discontinued Reason: No Longer Taking Prescribed by: EVA ASENCIO on 01/28/201226 Last Action: Discontinued Pantoprazole Sodium (Pantoprazole Sodium) 20 Mg Tablet.dr, 20 MG PO DAILY Discontinued Reason: Duplicate Order Prescribed by: EVA ASENCIO on 01/28/201228 Last Action: Discontinued Exam Vital Signs Vital Signs Date Time Temp Pulse Resp B/P (MAP) Pulse Ox O2 Delivery O2 Flow Rate FiO2 12/20/20 14:39 97 Room Air 12/20/20 12:00 37.3 107 24 144/67 2.00 12/19/20 20:36 28 Physical Exam General: Alert. No acute distress. Well nourished and appears stated age. He is disheveled. He is obese. Eye: Extraocular movements are intact. Conjunctivae are clear. There are no xanthelasma. HENT: Normocephalic. Atraumatic. Carotid pulsations 2/2 without bruits. Neck: Jugular venous pressure does not appear elevated. No thyromegaly appreciated. Respiratory: Lungs are clear to auscultation. Respirations are non-labored. Breath sounds are equal. Symmetrical chest wall expansion. Cardiovascular: Normal rate. Regular rhythm. No murmur. No gallop. Point of maximal impulse is not appear displaced. Good pulses equal in all extremities. 1+ bilateral pretibial edema. Gastrointestinal: Soft. Normal bowel sounds. Skin: Skin turgor is normal. There is no pallor. There are multiple excoria tions on his upper and lower extremities bilaterally with some scattered ecchymoses. Musculoskeletal: No kyphosis or scoliosis appreciated. Neurologic: Alert and oriented to person, place, time. Cranial nerves 3-12 appear grossly intact. The patient has good motor tone strength in the upper and lower extremities bilaterally. Psychiatric: Cooperative. Appropriate mood & affect. Labs Laboratory Tests Test 12/19/20 16:15 12/19/20 17:06 12/19/20 17:32 12/19/20 18:53 Range/Units SARS-CoV-2 RNA (RT-PCR) Not Detected Not Detecte White Blood Count 8.8 4.3-11.0 10^3/uL Red Blood Count 3.85 L 4.30-5.52 10^6/uL Hemoglobin 13.7 13.3-17.7 g/dL Hematocrit 41 40-54 % Mean Corpuscular Volume 108 H 80-99 fL Mean Corpuscular Hemoglobin 36 H 25-34 pg Mean Corpuscular Hemoglobin Concent 33 32-36 g/dL Red Cell Distribution Width 15.4 H 10.0-14.5 % Platelet Count 81 L 130-400 10^3/uL Mean Platelet Volume 10.4 9.0-12.2 fL Immature Granulocyte % (Auto) 0 % Neutrophils (%) (Auto) 62 42-75 % Lymphocytes (%) (Auto) 28 12-44 % Monocytes (%) (Auto) 8 0-12 % Eosinophils (%) (Auto) 2 0-10 % Basophils (%) (Auto) 1 0-10 % Neutrophils # (Auto) 5.5 1.8-7.8 10^3/uL Lymphocytes # (Auto) 2.5 1.0-4.0 10^3/uL Monocytes # (Auto) 0.7 0.0-1.0 10^3/uL Eosinophils # (Auto) 0.2 0.0-0.3 10^3/uL Basophils # (Auto) 0.1 0.0-0.1 10^3/uL Immature Granulocyte # (Auto) 0.0 0.0-0.1 10^3/uL Neutrophils % (Manual) 53 % Lymphocytes % (Manual) 37 % Monocytes % (Manual) 9 % Eosinophils % (Manual) 1 % Percent Immature Platelet Fraction 4.6 0.0-7.6 % Macrocytosis SLIGHT Sodium Level 140 135-145 MMOL/L Potassium Level 4.2 3.6-5.0 MMOL/L Chloride Level 100 98-107 MMOL/L Carbon Dioxide Level 25 21-32 MMOL/L Anion Gap 15 H 5-14 MMOL/L Blood Urea Nitrogen 7 7-18 MG/DL Creatinine 0.75 0.60-1.30 MG/DL Estimat Glomerular Filtration Rate 106 BUN/Creatinine Ratio 9 Glucose Level 175 H 70-105 MG/DL Calcium Level 8.5 8.5-10.1 MG/DL Corrected Calcium 9.1 8.5-10.1 MG/DL Total Bilirubin 1.2 H 0.1-1.0 MG/DL Aspartate Amino Transf (AST/SGOT) 58 H 5-34 U/L Alanine Aminotransferase (ALT/SGPT) 32 0-55 U/L Alkaline Phosphatase 88 40-136 U/L B-Type Natriuretic Peptide 51.4 <100.0 PG/ML Total Protein 8.0 6.4-8.2 GM/DL Albumin 3.2 3.2-4.5 GM/DL Procalcitonin 0.11 H <0.10 NG/ML Serum Alcohol 270 H <10 MG/DL Prothrombin Time 15.6 H 12.2-14.7 SEC INR Comment 1.2 0.8-1.4 Blood Gas Puncture Site L RADIAL Blood Gas Patient Temperature 37.2 Arterial Blood pH 7.37 7.37-7.43 Arterial Blood Partial Pressure CO2 48 H 35-45 MMHG Arterial Blood Partial Pressure O2 70 L 79-93 MMHG Arterial Blood HCO3 27 23-27 MMOL/L Arterial Blood Total CO2 28.5 21.0-31.0 MMOL/L Arterial Blood Oxygen Saturation 92 L 94-100 % Arterial Blood Base Excess 2.3 -2.5-2.5 MMOL/L West Test YES-POS Blood Gas Ventilator Setting NO Blood Gas Inspired Oxygen ROOM AIR Ammonia 20 11-32 UMOL/L Urine Color YELLOW Urine Clarity CLEAR Urine pH 5.5 5-9 Urine Specific [place] 1.015 L 1.016-1.022 Urine Protein TRACE H NEGATIVE Urine Glucose (UA) NEGATIVE NEGATIVE Urine Ketones NEGATIVE NEGATIVE Urine Nitrite NEGATIVE NEGATIVE Urine Bilirubin NEGATIVE NEGATIVE Urine Urobilinogen 1.0 < = 1.0 MG/DL Urine Leukocyte Esterase NEGATIVE NEGATIVE Urine RBC (Auto) TRACE-I NEGATIVE Urine RBC 0-2 /HPF Urine WBC 2-5 /HPF Urine Crystals PRESENT H /LPF Urine Amorphous Sediment FEW ADAMARIS URATES H /LPF Urine Bacteria TRACE /HPF Urine Casts NONE /LPF Urine Mucus NEGATIVE /LPF Urine Culture Indicated NO Test 12/20/20 04:55 12/20/20 11:26 12/20/20 15:47 Range/Units White Blood Count 8.8 4.3-11.0 10^3/uL Red Blood Count 3.60 L 4.30-5.52 10^6/uL Hemoglobin 12.5 L 13.3-17.7 g/dL Hematocrit 39 L 40-54 % Mean Corpuscular Volume 108 H 80-99 fL Mean Corpuscular Hemoglobin 35 H 25-34 pg Mean Corpuscular Hemoglobin Concent 32 32-36 g/dL Red Cell Distribution Width 14.6 H 10.0-14.5 % Platelet Count 53 L 130-400 10^3/uL Mean Platelet Volume 10.5 9.0-12.2 fL Immature Granulocyte % (Auto) 0 % Neutrophils (%) (Auto) 88 H 42-75 % Lymphocytes (%) (Auto) 7 L 12-44 % Monocytes (%) (Auto) 4 0-12 % Eosinophils (%) (Auto) 0 0-10 % Basophils (%) (Auto) 0 0-10 % Neutrophils # (Auto) 7.8 1.8-7.8 10^3/uL Lymphocytes # (Auto) 0.6 L 1.0-4.0 10^3/uL Monocytes # (Auto) 0.4 0.0-1.0 10^3/uL Eosinophils # (Auto) 0.0 0.0-0.3 10^3/uL Basophils # (Auto) 0.0 0.0-0.1 10^3/uL Immature Granulocyte # (Auto) 0.0 0.0-0.1 10^3/uL Sodium Level 138 135-145 MMOL/L Potassium Level 4.0 3.6-5.0 MMOL/L Chloride Level 100 98-107 MMOL/L Carbon Dioxide Level 25 21-32 MMOL/L Anion Gap 13 5-14 MMOL/L Blood Urea Nitrogen 11 7-18 MG/DL Creatinine 0.82 0.60-1.30 MG/DL Estimat Glomerular Filtration Rate 96 BUN/Creatinine Ratio 13 Glucose Level 262 H 70-105 MG/DL Calcium Level 8.3 L 8.5-10.1 MG/DL Troponin I < 0.028 <0.028 NG/ML Glucometer 351 H 258 H 70-110 MG/DL ECG Impression ECG Comment Sinus tachycardia at 126 bpm with probable old anterior myocardial infarction and possible old inferior myocardial infarction. No acute ischemic changes. Diagnosis/Problems Diagnosis/Problems (1) Coronary artery disease with unstable angina pectoris Assessment & Plan: He is having symptoms concerning for unstable angina in the presence of known coronary artery disease. Fortunately, his troponin level was negative and there are no ischemic changes on his electrocardiogram. Nonetheless, given the unstable nature of his symptoms, I recommend further evaluation with an echocardiogram and cardiac catheterization. I will plan on performing the cardiac catheterization tomorrow. If he has recurrent chest discomfort, I would consider placing him on therapeutic dosing of Lovenox and topical nitrates. I will start him on low strength aspirin. He is not on statin medication due to chronic elevation of his transaminase levels. His home medication list states that he is on both atenolol and metoprolol. This will need to be clarified. I will start him on metoprolol succinate 50 mg once daily with the first dose to be given today. (2) Primary hypertension Assessment & Plan: His blood pressures are intermittently elevated. Some of this could be due to alcohol withdrawal syndrome. I will restart his metoprolol as above. He is being monitored by the hospitalist and nursing for signs of alcohol withdrawal. (3) Mixed hyperlipidemia Status: Chronic Assessment & Plan: His LDL level was not all that elevated on his lipid profile this admission. He does have elevated triglycerides. I will start him on fish oil twice daily. This will need to be followed after an outpatient assuming we can get him to come for follow-up visits. (4) Cigarette smoker Assessment & Plan: He was strongly advised to quit smoking. He does seem to realize this has negative health consequences. He hopes to be admitted to a alf and is hoping this will help with smoking cessation. (5) Morbid obesity Assessment & Plan: He needs to work on weight loss. NANCY GIVENS JR, MD Dec 20, 2020 15:54
[2020-12-20] MEDS ORDERED: NS IV 1000 ML 1,000 ML IV ONE (16:00)
[2020-12-20] MEDS ORDERED: CATHETER FLUSH 10 ML SYR IV PRN (16:00)
[2020-12-20] MEDS ORDERED: meTOproloL SUCCINATE 50 MG (TOPROL XL) TAB PO NR (16:15)
[2020-12-20] MEDS ORDERED: ASPIRIN E.C. 81 MG (ECOTRIN) TAB PO NR (16:15)
[2020-12-20] MEDS: OMEGA 3 (FISH OIL) 1000 MG CAP PO SCH (16:36)
[2020-12-20] MEDS ORDERED: WATER (STERILE) FOR INJECTION 10 ML ONE (20:05)
[2020-12-20] MEDS: ACETAMINOPHEN 500 MG TAB (TYLENOL) PO PRN (20:30)
[2020-12-20] MEDS: cefTRIAXone 1,000 MG/SWFI 10 ML IV PUSH IV SCH ×2 (20:31)
[2020-12-20] MEDS: clonazePAM 1 MG (KlonoPIN) TAB PO PRN (22:38)
[2020-12-21] MEDS: RT-ALBUTEROL/IPRATROPIUM 3 ML (DUONEB) VIAL INH SCH ×6 (03:08→21:50)
[2020-12-21] MEDS: inSUlin ASPART (NovoLOG) 1 UNIT/0.01 ML (CHARGE PER UNIT) SC SCH ×4 (05:27→21:00)
[2020-12-21] MEDS: CATHETER FLUSH 10 ML SYR IV SCH ×3 (06:32→21:00)
[2020-12-21] MEDS ORDERED: NS IV 1000 ML 1,000 ML ONE (07:21)
[2020-12-21] MEDS ORDERED: LIDOCAINE 1% INJ 20 ML 20 ML VIAL ONE (07:21)
[2020-12-21] MEDS ORDERED: HEParin (CATH LAB) 2,000 ML IV ONE (07:21)
[2020-12-21] MEDS ORDERED: VERAPAMIL 5 MG/2 ML (CALAN) VIAL IV ONE (07:22)
[2020-12-21] MEDS ORDERED: fentaNYL INJ 100 MCG/2 ML AMP ONE (07:22)
[2020-12-21] MEDS ORDERED: MIDAZOLAM 5 MG/5 ML (VERSED) VIAL ONE (07:23)
[2020-12-21] MEDS ORDERED: HEParin 1000 UNIT/ML (10ML VIAL) FOR BOLUS ONE (07:23)
[2020-12-21] MEDS ORDERED: NITRO DRIP 25000 MCG/D5W 250 ML IV ONE (07:23)
--- NOTE | 2020-12-21 08:19 | Pre-Op Note & Conscious Sedat ---
Pre-Operative Progress Note H&P Reviewed The H&P was reviewed, patient examined and no changes noted. Date H&P Reviewed: Dec 21, 2020 Time H&P Reviewed: 08:18 Pre-Op Diagnosis: Coronary artery disease with unstable angina. Conscious Sedation Pre-Proced ASA Score 2 For ASA 3 and 4: Consider anesthesia and medical clearance. Also, for patients with a history of failed moderate sedation consider anesthesia. Airway Lungs Heart ASA score ASA 1: a normal healthy patient ASA 2: a patient with a mild systemic disease (mid diabetes, controlled hypertension, obesity ASA 3: a patient with a severe systemic disease that limits activity (angina, COPD, prior Myocardial infarction) ASA 4: a patient with an incapacitating disease that is a constant threat to life (CHF, renal failure) ASA 5: a moribund patient not expected to survive 24 hrs. (ruptured aneurysm) ASA 6: a declared brain- patient whose organs are being harvested. For emergent operations, add the letter E after the classification Mallampati Classification Grade 3 Sedation Plan Analgesia, Amnesia, Plan communicated to team members, Discussed options with patient/fam, Discussed risks with patient/fam The patient is an appropriate candidate to undergo the planned procedure, sedation, and anesthesia. The patient immediately re-assessed prior to indication. NANCY GIVENS JR, MD Dec 21, 2020 08:19
[2020-12-21] MEDS ORDERED: ASPIRIN 81 MG CHEW (CHILDREN'S ASA) ONE (08:50)
[2020-12-21] MEDS ORDERED: CLOPIDOGREL 300 MG (PLAVIX) TABLET PO ONE (08:50)
[2020-12-21] MEDS ORDERED: NS IV 1000 ML 1,000 ML IV SCH (09:45)
[2020-12-21] MEDS ORDERED: PATIENT MAY USE OWN MEDS, ALL PO SCH (09:45)
[2020-12-21] MEDS: THIAMINE 100 MG (VITAMIN B-1) TAB PO SCH (09:58)
[2020-12-21] MEDS: PANTOPRAZOLE 40 MG (PROTONIX) VIAL IV SCH (09:58)
[2020-12-21] MEDS: NICOTINE 14 MG (NICODERM) PATCH TD SCH (09:58)
[2020-12-21] MEDS: MAGNESIUM OXIDE (MAG-OX)400 MG TAB PO SCH ×2 (09:58→20:49)
[2020-12-21] MEDS: predniSONE 20 MG TAB PO SCH (09:58)
[2020-12-21] MEDS: ACETAMINOPHEN 500 MG TAB (TYLENOL) PO PRN ×2 (09:58→20:50)
[2020-12-21] MEDS: ASPIRIN E.C. 81 MG (ECOTRIN) TAB PO SCH (09:59)
[2020-12-21] MEDS: meTOproloL SUCCINATE 50 MG (TOPROL XL) TAB PO SCH (09:59)
[2020-12-21] MEDS: OMEGA 3 (FISH OIL) 1000 MG CAP PO SCH ×2 (09:59→17:19)
[2020-12-21] MEDS: FOLIC ACID 1 MG TAB PO SCH (09:59)
[2020-12-21] MEDS: MULTIVIT W/MINERALS TAB (THERAGRAN M) PO SCH (09:59)
[2020-12-21] MEDS: NICOTINE PATCH REMOVAL TP SCH (10:00)
[2020-12-21] MEDS: clonazePAM 1 MG (KlonoPIN) TAB PO PRN ×2 (10:07→21:00)
--- NOTE | 2020-12-21 11:27 | Cardiac Cath Report ---
CARDIAC CATHETERIZATION DATE OF PROCEDURE: 12/21/2020 INDICATION: Coronary artery disease with unstable angina. HISTORY: The patient is a 60 year old male with a known history of coronary artery disease with a previous drug-eluting stent to his left circumflex coronary artery/first obtuse marginal branch in January 2020. He was subsequently lost to follow-up. He presented to the hospital 2 days ago with pain all over his body. However, yesterday he started complaining of chest pain with radiation to his left arm. He ruled out for a myocardial infarction. He is now referred for further evaluation with a cardiac catheterization. PROCEDURES PERFORMED: 1. Left heart catheterization with hemodynamic measurements. 2. Diagnostic [place] coronary angiography. 3. Drug-eluting stent placement to distal right coronary artery. 4. Drug-eluting stent placement to distal left anterior descending coronary artery. PROCEDURE DESCRIPTION: After informed consent and in the fasting state, left heart catheterization was performed through the right radial artery utilizing a 6 Ecuadorean system by percutaneous approach. Standard Augustus catheters were utilized for the diagnostic portion of the procedure. A 6 Ecuadorean AR-1 guide catheter was utilized for the intervention on the right coronary artery and a 6 [place]cuadorean CLS 3.5 guide catheter was utilized for the intervention on the left anterior descending coronary artery. All catheters were exchanged over a guidewire. Following the procedure, a vascular band was applied to the radial artery access site and the sheath was removed with good hemostasis. RESULTS: HEMODYNAMICS: The aortic pressure was 137/68 mmHg. The left ventricular pressure was 145/0 mmHg with a left ventricular end-diastolic pressure of 25 mmHg. There was no significant pressure gradient upon pullback across the aortic valve. CORONARY ANGIOGRAPHY: Left main coronary artery: Free of significant disease. Left anterior descending coronary artery: There was an 80% eccentric stenosis in the distal segment with XAVIER-2 flow beyond the stenosis. Left circumflex coronary artery: There was a stent in the first obtuse marginal branch which was widely patent and the remainder of the vessel was free of significant disease. Right coronary artery: Dominant and there was a 90% stenosis in the very distal portion of the vessel which involved the proximal segment of the first large posterolateral branch. There was XAVIER-1 flow beyond the stenosis. The posterior descending artery contained a 50% stenosis proximally and a 70% stenosis in the midportion with XAVIER-2 flow. PERCUTANEOUS CORONARY INTERVENTION OF RIGHT CORONARY ARTERY: Percutaneous coronary intervention was carried out on the distal right coronary artery through a 6 Ecuadorean AR-1 guide catheter. The lesion was successfully crossed with a [place] guidewire. I subsequently performed coronary angioplasty with a 2 x 12 mm Trek balloon at a pressure of 10 pattie. Flow was improved. I subsequently deployed a 2.25 x 15 mm drug-eluting Xience Arianne stent at a pressure of 16 pattie. Following stent placement, there was 0% residual stenosis with XAVIER-3 flow. I should note that the patient did get left arm pain with balloon inflations. PERCUTANEOUS CORONARY INTERVENTION OF LEFT ANTERIOR DESCENDING CORONARY ARTERY: I subsequently directed my attention to the left anterior descending coronary artery and first attempted to engage the left main coronary artery with a 6 Ecuadorean CLS 4 guide catheter but this was too long. I was then able to successfully engage the left main coronary artery with a 6 [place]orean CLS 3.5 guide catheter. I subsequently crossed the stenosis in the distal left anterior descending coronary artery with a new [place] guidewire. I subsequently deployed a 2.5 x 15 mm drug-eluting Xience Arianne stent at a pressure of 16 pattie. Following stent placement, there was 0% residual stenosis with XAVIER-3 flow. IMPRESSION: 1. Systemic hypertension with markedly elevated left ventricular end-diastolic pressure. 2. Patent stent in the first obtuse marginal branch. 3. Status post drug-eluting stent placement to the distal right coronary artery and proximal segment of the first large posterolateral branch with a 2.25 x 15 mm Xience Arianne stent with 0% residual stenosis and XAVIER-3 flow. 3. Status post drug-eluting stent placement to the distal left anterior descending coronary artery with a 2.5 x 15 mm Xience Arianne stent with 0% residual stenosis and XAVIER-3 flow. 4. There is moderate to severe residual stenosis in the posterior descending artery branch of the right coronary artery but this is approximately a 2.25 mm vessel. 5. The patient is known to have normal left ventricular systolic function with an estimated ejection fraction of 55-60% by echocardiogram performed just prior to this procedure. Certain portions of this document may have been dictated utilizing voice recognition technology. Inherent to this technology, typographical and grammatical errors may exist. As much as I am diligent to identify and correct these mistakes, some errors may remain in the document. NANCY GIVENS JR, MD Dec 21, 2020 11:27
--- NOTE | 2020-12-21 11:33 | Physical Therapy Progress Note ---
Therapy Progress Note Patient had surgery this am and refuses treatment. Notified nurse and she requested hold on patient until am. Patient will be evaluated tomorrow and progress per patient tolerance. AKI WOODARD PT Dec 21, 2020 11:33
--- NOTE | 2020-12-21 12:04 | Occupational Ther Daily Note ---
OT Current Status-Daily Note Subjective Pt reports cardiac cath this am. Per RN, pt on bed rest. Agreeable to complete grooming tasks at bed level. Mental Status/Objective Patient Orientation: Person, Situation ADL-Treatment Pt currently on bed rest. RN/Pt agreeable for grooming tasks at bed level. Min a to manage multiple lines in order to bring hand to face. Pt demonstrates slight difficulty managing smaller items secondary to arthritis. Education/discussion provided on using built up handles for silverware/grooming items, etc. Therapy Code Descriptions/Definitions Functional [place] Measure: 0=Not Assessed/NA 4=Minimal Assistance 1=Total Assistance 5=Supervision or Setup 2=Maximal Assistance 6=Modified [place] 3=Moderate Assistance 7=Complete IndependenceSCALE: Activities may be completed with or without assistive devices. 5-Rlpaefidrm-ouemqaq completes the activity by him/herself with no assistance from a helper. 5-Set-up or Clean-up Assistance-helper sets up or cleans up; patient completes activity. [place] assists only prior to or following the activity. 4-Supervision or Touching Assistance-helper provides verbal cues and/or touching/steadying and/or contact guard assistance as patient completes activity. Assistance may be provided throughout the activity or intermittently. 3-Partial/Moderate Assistance-helper does LESS THAN HALF the effort. [place] lifts, holds or supports trunk or limbs, but provides less than half the effort. 2-Substantial/Maximal Assistance-helper does MORE THAN HALF the effort. [place] lifts or holds trunk or limbs and provides more than half the effort. 6-Bgqpnrhwe-vfnvuc does ALL the effort. Patient does none of the effort to complete the activity. Or, the assistance of 2 or more helpers is required for the patient to complete the activity. If activity was not attempted, code reason: 7-Patient Refused. 9-Not Applicable-not attempted and the patient did not perform the activity before the current illness, exacerbation or injury. 10-Not Attempted due to Environmental Limitations-(lack of equipment, weather restraints, etc.). 88-Not Attempted due to Medical Conditions or Safety Concerns. Education OT Patient Education: Correct positioning, Modified ADL techniques, Purpose of tx/functional activities, Use of adapted equipment Teaching Recipient: Patient Teaching Methods: Discussion Response to Teaching: Verbalize Understanding OT Longterm Goals Horticulture Instructor Goals Oral Hygiene (QC): 4 Toileting Hygiene (QC): 4 Lower Body Dressing (QC): 4 On/Off Footwear (QC): 4 1=Demonstrate adherence to instructed precautions during ADL tasks. 2=Patient will verbalize/demonstrate understanding of assistive devices/modifications for ADL. 3=Patient will improve strength/tolerance for activity to enable patient to perform ADL's. OT Education/Plan Discharge Recommendations Plan/Recommendations: Continue POC Treatment Plan/Plan of Care Treatment,Training & Education: Yes Patient would benefit from OT for education, treatment and training to promote independence in ADL's, mobility, safety and/or upper extremity function for ADL's. Plan of Care: ADL Retraining, Functional Mobility, UE Funct Exercise/Act Treatment Duration: Jan 04, 2021 Frequency: 5 times per week Estimated Hrs Per Day: .25 hour per day Rehab Potential: Guarded Time/GCodes Start Time: 11:24 Stop Time: 11:34 Total Time Billed (hr/min): 10 Billed Treatment Time 1, ADL Ama Phillips OT Dec 21, 2020 12:04
--- NOTE | 2020-12-21 12:23 | Progress Note - Hospitalist ---
Subjective HPI/CC On Admission Date Seen by Provider: Dec 21, 2020 Time Seen by Provider: 12:21 Is a 60-year-old male with past medical history of coronary artery disease, alcohol abuse, hypertension, diabetes who presented to the emergency department due to generalized pain. Per ER report he summoned EMS due to pain all over his body from "3 different types of arthritis." On EMS arrival they found his home to be quite disheveled and multiple empty bottles of alcohol scattered throughout his home. He was incidentally found to be hypoxic. He does smoke regularly. His Covid swab was negative. He was admitted to [facility] for his hypoxia. This morning he denies any generalized pain and states that he was here for chest pain that radiated to his left arm. He does not follow with a marriage and family therapist. He did have a cardiac cath done in January of last year with stent deployment. He denies any current chest pain. He did complain of wea kness and falls still. He was recently admitted to [facility] for falls and weakness with alcohol intoxication. He has been planning to admit to [facility] but has been waiting for a bed. He denied significant alcohol use and states he only drank a couple sips of beer and maybe 1 glass of vodka all day yesterday. We discussed that his alcohol level was 270 on arrival and that is inconsistent with that much alcohol. He then reports that once he starts drinking he frequently loses track but that he does not drink daily and has gone months without drinking without withdrawal. Subjective/Events-last exam Pt reports doing well. No complaints. Back from cath and doing well post procedure. Objective Exam Vital Signs Vital Signs Date Time Temp Pulse Resp B/P (MAP) Pulse Ox O2 Delivery O2 Flow Rate FiO2 12/21/20 11:53 36.4 90 20 137/77 92 Nasal Cannula 2.00 12/21/20 10:07 93 Capillary Refill : Less Than 3 Seconds General Appearance: No Apparent Distress, Chronically ill, Obese Respiratory: Lungs Clear, No Respiratory Distress Cardiovascular: Regular Rate, Rhythm, No Murmur Neurologic/Psychiatric: Alert, Oriented x3 Results/Procedures Lab Patient resulted labs reviewed. Imaging: Reviewed Imaging Report Assessment/Plan Assessment and Plan Assess & Plan/Chief Complaint COPD exacerbation Continue steroids Back on oxygen though minimal amount Procal mildly elevated, continue Rocephin Chest pain CAD Cath today stents deployed to RCA and LAD Cardiology consulted, appreciate recs Post cath care DAPT Debility Falls Alcohol abuse Alcoholic liver disease PT/OT Was attempting to get in to a NH prior to admission ([facility]) convention services manager consulted, appreciate recs Advised to stop drinking in excess as this is contributing to his falls and weakness Hyperglycemia Reports knowing he has problems with blodo sugars but unsure if ever diagnosed Does not appear to fill anything for DM fasting blood sugar 262 this AM- likely worsened some by steroids a1c 6.5 SSI Consider Metformin on discharge but not at the moment given cath today DVT ppx: SCD only due to thrombocyotpenia Diagnosis/Problems Diagnosis/Problems (1) CAD (coronary artery disease) Status: Chronic Qualifiers: Coronary Disease-Associated Artery/Lesion type: [place] artery [place] vs. transplanted heart: [place] heart Associated angina: without angina Qualified Codes: I25.10 - Atherosclerotic heart disease of [place] coronary artery without angina pectoris (2) Essential (primary) hypertension Status: Chronic (3) HLD (hyperlipidemia) Status: Chronic Qualifiers: Hyperlipidemia type: mixed hyperlipidemia Qualified Codes: E78.2 - Mixed hyperlipidemia (4) Hyperglycemia Status: Chronic (5) Debility Status: Acute (6) Obesity Status: Chronic Qualifiers: Obesity classification: adult class 3 (BMI >= 40) Body mass index: BMI 40.0-44.9 (7) Prophylactic measure (8) Thrombocytopenia Status: Chronic (9) Alcoholic cirrhosis of liver Status: Chronic Qualifiers: Ascites presence: without ascites Qualified Codes: K70.30 - Alcoholic cirrhosis of liver without ascites (10) COPD exacerbation Status: Acute (11) Chest pain Status: Acute Qualifiers: Chest pain type: unspecified Qualified Codes: R07.9 - Chest pain, unspecified (12) Alcoholism Status: Chronic (13) Tobacco abuse Status: Chronic PREETHI LECHUGA MD Dec 21, 2020 12:23
--- NOTE | 2020-12-21 16:48 | Physician Query Clarification ---
Physician Query-General Query to Physician: The medical record reflects the following clinical evidence: Clinical Indicators: EMS report "hypoxic", 92% on 5L (P/F=162), 89% on RA (P/F = 271) when attempting to wean RR Consistently 20-24, "Short of air at rest" per nursing Risk Factor(s): COPD, Smoker, High ETOH level, No history of home 02 Treatment: Supplemental 02 at 6 L on admission, not yet able to titrate off, Duenebs, 1. Acute respiratory failure with hypoxia, present on admission, improving 2. Other explanation of clinical findings 3. Unable to determine (no explanation for clinical findings) Please clarify and document your clinical opinion in the progress notes and discharge summary including the definitive and/or presumptive diagnosis, (suspected or probable), related to the above clinical findings. Please include clinical findings supporting your diagnosis. Debbie Calero MSN, RN Clinical Slab Off Mill Tender [phone] [email or web address] PHYSICIAN RESPONSE: Based on the clinical findings in the record, please respond to the query above on this document as an addendum. Physician Response: Physician Response 1 If you have questions please contact: Transportation Dispatch Manager: Ext: Thank you for your time and cooperation. Clinical Slab Off Mill Tender/Transportation Dispatch Manager This is a permanent part of the medical record DEBBIE CALERO Dec 21, 2020 16:48 PREETHI LECHUGA MD Dec 21, 2020 18:57
--- NOTE | 2020-12-21 16:56 | Physician Query Clarification ---
Physician Query-General Query to Physician: The medical record reflects the following clinical evidence: Clinical Indicators: Chest CT: "Opacities throughout the left lung strongly suspicious for aspiration pneumonitis", HR 120's X 4 hours, RR 20-24, Per EMS "Hypoxic", Requiring 2-5L 02 to keep sats above 90%, Risk Factor(s): High ETOH level, No Home O2, Treatment: Duonebs, Ceftriaxone IV, Supplemental 02 1. Pneumonitis due to inhalation of food and vomit, 2. Other explanation of clinical findings 3. Unable to determine (no explanation for clinical findings) Please clarify and document your clinical opinion in the progress notes and discharge summary including the definitive and/or presumptive diagnosis, (suspected or probable), related to the above clinical findings. Please include clinical findings supporting your diagnosis. Debbie Calero MSN, RN Clinical Boilermaker Helper [phone] [email or web address] PHYSICIAN RESPONSE: Based on the clinical findings in the record, please respond to the query above on this document as an addendum. Physician Response: Physician Response 1 If you have questions please contact: Setter Automatic Spinning Lathe: Ext: Thank you for your time and cooperation. Clinical Boilermaker Helper/Setter Automatic Spinning Lathe This is a permanent part of the medical record DEBBIE CALERO Dec 21, 2020 16:56 PREETHI LECHUGA MD Dec 21, 2020 18:58
[2020-12-21] MEDS: cefTRIAXone 1,000 MG/SWFI 10 ML IV PUSH IV SCH ×2 (20:49)
[2020-12-21] MEDS: ROSUVASTATIN 10 MG (CRESTOR) TABLET PO SCH (20:49)
[2020-12-21 23:43] VITALS: BP 127/71
[2020-12-22] MEDS: RT-ALBUTEROL/IPRATROPIUM 3 ML (DUONEB) VIAL INH SCH ×4 (02:20→22:05)
[2020-12-22 03:13] VITALS: BP 149/69
[2020-12-22] MEDS: inSUlin ASPART (NovoLOG) 1 UNIT/0.01 ML (CHARGE PER UNIT) SC SCH ×4 (05:58→22:01)
[2020-12-22] MEDS: MULTIVIT W/MINERALS TAB (THERAGRAN M) PO SCH (06:05)
[2020-12-22] MEDS: THIAMINE 100 MG (VITAMIN B-1) TAB PO SCH (06:05)
[2020-12-22] MEDS: predniSONE 20 MG TAB PO SCH (06:05)
[2020-12-22] MEDS: CATHETER FLUSH 10 ML SYR IV SCH ×3 (06:06→22:47)
[2020-12-22] MEDS: ACETAMINOPHEN 500 MG TAB (TYLENOL) PO PRN ×3 (06:10→20:07)
[2020-12-22 07:24] VITALS: BP 149/69
[2020-12-22 08:21] VITALS: BP 173/68
[2020-12-22] MEDS ORDERED: METO50TA7 PO (08:41)
[2020-12-22] MEDS ORDERED: ROSU10TA28 PO (08:41)
[2020-12-22] MEDS ORDERED: CLOP75TA28 PO (08:41)
[2020-12-22] MEDS ORDERED: NITROGLYCERIN 0.4 MG SL TABS BTL 25'S SL PRN (08:45)
[2020-12-22] MEDS ORDERED: NITR0.4T42 SL (08:52)
[2020-12-22] MEDS ORDERED: CLOPIDOGREL 75 MG (PLAVIX) TABLET PO SCH (09:00)
--- NOTE | 2020-12-22 10:51 | Cardiology Progress Note ---
Progress Note-Cardiology Events since last exam Date Seen by Provider: Dec 22, 2020 Time Seen by Provider: 10:45 Events since last exam I am seeing him for coronary artery disease. On 12/21 he underwent coronary stent placement to the distal left anterior descending and distal right coronary arteries. The previously placed stent in his left circumflex system was patent. He denies any further chest or left arm discomfort. His breathing is improving. He still has some mild ankle edema. He denies palpitations or syncope. He hopes that he can be admitted to a fci for long-term care at some point in the future. Certain portions of this document may have been dictated utilizing voice recognition technology. Inherent to this technology, typographical and grammatical errors may exist. As much as I am diligent to identify and correct these mistakes, some errors may remain in the document. Vitals Last set of Vitals Signs Vital Signs 12/21/20 12/22/20 12/22/20 10:07 08:00 08:21 Temp 36.4 Pulse 96 Resp 20 B/P (MAP) 173/68 (103) Pulse Ox 91 O2 Delivery Room Air O2 Flow Rate 2.00 FiO2 93 Exam Vital Signs Vital Signs Date Time Temp Pulse Resp B/P (MAP) Pulse Ox O2 Delivery O2 Flow Rate FiO2 12/22/20 08:21 36.4 96 20 173/68 (103) 91 Room Air 12/22/20 08:00 2.00 12/21/20 10:07 93 Physical Exam General: Alert. No acute distress. He is obese. Eye: No xanthelasma. HENT: Normocephalic. Neck: Jugular venous pressure does not appear elevated. Respiratory: Lungs have minimal scattered wheezes bilaterally, improved from prior days. Respirations are non-labored. Breath sounds are equal. Symmetrical chest wall expansion. Cardiovascular: Normal rate. Regular rhythm. No murmur. No gallop. 1+ bilateral pretibial edema. Gastrointestinal: Soft. Normal bowel sounds. Skin: Warm. Dry. Numerous areas of ecchymoses and excoriation on his upper and lower extremities bilaterally. Neurologic: Alert and oriented to person, place, time. Cranial nerves 3-11 grossly intact. Psychiatric: Cooperative. Appropriate mood & affect. Labs Laboratory Tests Test 12/21/20 15:51 12/21/20 16:51 12/21/20 20:54 12/22/20 05:37 Range/Units Glucometer 304 H 273 H 173 H 117 H 70-110 MG/DL Diagnosis/Problems Diagnosis/Problems (1) Coronary artery disease with unstable angina pectoris Assessment & Plan: He is now status post drug-eluting stents to the distal left anterior descending and distal right coronary arteries. He had negative tro ponin levels. He has a normal ejection fraction. He is now on aspirin and clopidogrel. I have restarted metoprolol. He had not been on statin medication due to chronic elevation of his transaminase levels. However, his transaminase levels have been only mildly elevated during this admission, probably related to alcohol abuse. I started him on low-dose statin medication. His home medication list states that he was on both atenolol and metoprolol. He should just be discharged on metoprolol. I I have started him him on metoprolol succinate 50 mg once daily. I also added sublingual nitroglycerin to be taken as needed. I will obtain a follow-up metabolic panel and complete blood count today. I have transmitted prescriptions to his outpatient pharmacy for clopidogrel, metoprolol succinate, rosuvastatin, and sublingual nitroglycerin. From a cardiac standpoint, he can be discharged home once his noncardiac issues have improved/resolved. My office will arrange for an outpatient follow-up visit in 1 month. He may need assistance with transportation to get to his appointment. (2) Primary hypertension Assessment & Plan: His blood pressures are intermittently elevated. Some of this could be due to alcohol withdrawal syndrome. He is being monitored by the hospitalist and nursing for signs of alcohol withdrawal. I have restarted metoprolol succinate but at a slightly higher dose than what he was taking at home. I will restart his chlorthalidone. It appears he was taking a combination tablet of atenolol with chlorthalidone at home. This should not be resumed since he is on metoprolol. (3) Mixed hyperlipidemia Status: Chronic Assessment & Plan: I have started him on low-dose statin medication and fish oil. He will need a follow-up lipid panel in approximately 6 weeks after d ischarge. (4) Cigarette smoker Assessment & Plan: He was strongly advised to quit smoking. He does seem to realize this has negative health consequences. He hopes to be admitted to a fci and is hoping this will help with smoking cessation. (5) Morbid obesity Assessment & Plan: He needs to work on weight loss. Problem Qualifiers (1) Coronary artery disease with unstable angina pectoris: Qualified Codes: I25.110 - Atherosclerotic heart disease of [place] coronary artery with unstable angina pectoris NANCY GIVENS JR, MD Dec 22, 2020 10:50
[2020-12-22] MEDS: NICOTINE 14 MG (NICODERM) PATCH TD SCH (10:59)
[2020-12-22] MEDS: clonazePAM 1 MG (KlonoPIN) TAB PO PRN ×2 (10:59→20:07)
[2020-12-22] MEDS: meTOproloL SUCCINATE 50 MG (TOPROL XL) TAB PO SCH (11:00)
[2020-12-22] MEDS: FOLIC ACID 1 MG TAB PO SCH (11:00)
[2020-12-22] MEDS: MAGNESIUM OXIDE (MAG-OX)400 MG TAB PO SCH (11:00)
[2020-12-22] MEDS: PANTOPRAZOLE 40 MG (PROTONIX) VIAL IV SCH (11:00)
[2020-12-22] MEDS: OMEGA 3 (FISH OIL) 1000 MG CAP PO SCH ×2 (11:00→18:28)
[2020-12-22] MEDS: CLOPIDOGREL 75 MG (PLAVIX) TABLET PO SCH (11:00)
[2020-12-22] MEDS: ASPIRIN E.C. 81 MG (ECOTRIN) TAB PO SCH (11:00)
[2020-12-22] MEDS: NICOTINE PATCH REMOVAL TP SCH (11:16)
[2020-12-22 11:19] LABS: BASOPHILS % (AUTO) 0 % (0-10); EOSINOPHILS % (AUTO) 0 % (0-10); HEMOGLOBIN 12.2 g/dL (13.3-17.7); MEAN CORPUSCULAR VOLUME 108 fL (80-99)
[2020-12-22 11:20] LABS: HEMATOCRIT 37 % (40-54); LYMPHOCYTES # (AUTO) 0.8 10^3/uL (1.0-4.0); LYMPHOCYTES % (AUTO) 12 % (12-44); MEAN CORPUSCULAR HEMOGLOBIN 35 pg (25-34); MEAN CORPUSCULAR HGB CONC 33 g/dL (32-36); MEAN PLATELET VOLUME 10.4 fL (9.0-12.2); MONOCYTES # (AUTO) 0.2 10^3/uL (0.0-1.0); MONOCYTES % (AUTO) 3 % (0-12); NEUTROPHILS # (AUTO) 5.5 10^3/uL (1.8-7.8); NEUTROPHILS % (AUTO) 85 % (42-75); PLATELET COUNT 54 10^3/uL (130-400); WHITE BLOOD COUNT 6.5 10^3/uL (4.3-11.0)
--- NOTE | 2020-12-22 11:21 | Physical Therapy Evaluation ---
PT Evaluation-General Medical Diagnosis Admission Date Dec 19, 2020 at 19:02 Medical Diagnosis: COPD exacerbation Onset Date: Dec 19, 2020 Therapy Diagnosis Therapy Diagnosis: decreased mobility, generalized weakness Precautions Precautions/Isolations: Seizure, Standard Precautions Weight Bear Status Right Lower Extremity: Right Weight Bearing/Tolerated Left Lower Extremity: Left Weight Bearing/Tolerated Referral Physician: Joel Reason for Referral: Evaluation/Treatment Medical History Pertinent Medical History: Alcoholism, CAD, COPD, DM, HTN Reviewed History: Yes Social History Home: Apartment Current Living Status: Alone Entry Into Home: Level Entry Prior Prior Level of Function SCALE: Activities may be completed with or without assistive devices. 5-Oakvtttqfa-stccwwm completes the activity by him/herself with no assistance from a helper. 5-Set-up or Clean-up Assistance-helper sets up or cleans up; patient completes activity. [place] assists only prior to or following the activity. 4-Supervision or Touching Assistance-helper provides verbal cues and/or touching/steadying and/or contact guard assistance as patient completes activity. Assistance may be provided throughout the activity or intermittently. 3-Partial/Moderate Assistance-helper does LESS THAN HALF the effort. [place] lifts, holds or supports trunk or limbs, but provides less than half the effort. 2-Substantial/Maximal Assistance-helper does MORE THAN HALF the effort. [place] lifts or holds trunk or limbs and provides more than half the effort. 1-Xwuphpcvi-xxfqia does ALL the effort. Patient does none of the effort to complete the activity. Or, the assistance of 2 or more helpers is required for the patient to complete the activity. If activity was not attempted, code reason: 7-Patient Refused. 9-Not Applicable-not attempted and the patient did not perform the activity before the current illness, exacerbation or injury. 10-Not Attempted due to Environmental Limitations-(lack of equipment, weather restraints, etc.). 88-Not Attempted due to Medical Conditions or Safety Concerns. Bed Mobility: 6 Transfers (B,C,W/C): 6 Gait: 6 Indoor Mobility (Ambulation): Independent Prior Devices Use: Manual wheelchair, Walker Prior Device Use: pt. uses cane, walker, and w/c for mobility; household ambulation primarily PT Evaluation-Current Subjective Pt. in bed, agrees to therapy. States he would like to sit up in chair. No c/o pain. Pt/Family Goals senior living at [place] Objective Patient Orientation: Person, Place, Time, Situation ROM/Strength ROM Upper Extremities WFL ROM Lower Extremities WFL Strength Upper Extremities WFL Strength Lower Extremities Grossly 3+/5 (B) hip, knee, ankle Integumentary/Posture Integumentary grossly intact Bowel Incontinence: No Bladder Incontinence: No Posture kyphotic Neuromuscular (Tone, Coordination, Reflexes) unremarkable Sensory Vision: Functional Hearing: Functional Hand Dominance: Right Transfers Lying to Sitting/Side of Bed(Q: 4 Sit to Stand (QC): 4 Chair/Mwm-np-Dtqgb Xfer(QC): 4 Gait Does the Patient Walk?: Yes Mode of Locomotion: Walk Anticipated Mode of Locomotion: Walk Distance: 3 ft to chair Gait Assistive Device: FWW Balance Sitting Static: Good Sitting Dynamic: Good Standing Static: Fair Standing Dynamic: Fair Assessment/Needs Pt. is a 60 y.o. male with generalized weakness and decreased mobility. Pt. is currently CGA with transfers and short-distance ambulation bed to chair using FWW. Pt. fatigues quickly with activity. Pt. would benefit from skilled PT to improve mobility and safety with plans to discharge to senior living per report. Rehab Potential: Good PT Correction Goals Correction Goals PT Correction Goals Time Frame: Jan 02, 2021 Sit to Lying (QC): 6 Lying-Sitting on Side/Bed(QC): 6 Sit to Stand (QC): 6 Chair/Ibp-rj-Ojvqw Xfer(QC): 6 Does the Patient Walk: Yes Walk 10 feet (QC): 6 Walk 50ft with 2 Turns (QC): 6 PT Plan Problem List Problem List: Activity Tolerance, Functional Strength, Safety, Balance, Gait, Transfer, Bed Mobility, ROM Treatment/Plan Treatment Plan: Continue Plan of Care Treatment Plan: Bed Mobility, Education, Functional Activity Dm, Functional Strength, Gait, Safety, Therapeutic Exercise, Transfers Treatment Duration: Jan 02, 2021 Frequency: 6 times per week Estimated Hrs Per Day: .25 hour per day Patient and/or Family Agrees t: Yes Time/GCodes Time In: 0756 Time Out: 0810 Total Billed Treatment Time: 14 Total Billed Treatment 1, ALLY 14' DELONTE COOPER PT Dec 22, 2020 11:21
[2020-12-22 11:37] LABS: ALBUMIN 2.9 GM/DL (3.2-4.5); BILIRUBIN,TOTAL 1.4 MG/DL (0.1-1.0); CALCIUM 8.8 MG/DL (8.5-10.1); CREATININE SERUM 0.84 MG/DL (0.60-1.30); POTASSIUM 4.4 MMOL/L (3.6-5.0); TOTAL PROTEIN 7.1 GM/DL (6.4-8.2)
[2020-12-22 11:55] VITALS: BP 154/74
--- NOTE | 2020-12-22 12:02 | Progress Note - Hospitalist ---
Subjective HPI/CC On Admission Date Seen by Provider: Dec 22, 2020 Time Seen by Provider: 11:57 Is a 60-year-old male with past medical history of coronary artery disease, alcohol abuse, hypertension, diabetes who presented to the emergency department due to generalized pain. Per ER report he summoned EMS due to pain all over his body from "3 different types of arthritis." On EMS arrival they found his home to be quite disheveled and multiple empty bottles of alcohol scattered throughout his home. He was incidentally found to be hypoxic. He does smoke regularly. His Covid swab was negative. He was admitted to [facility] for his hypoxia. This morning he denies any generalized pain and states that he was here for chest pain that radiated to his left arm. He does not follow with a theatre arts professor. He did have a cardiac cath done in January of last year with stent deployment. He denies any current chest pain. He did complain of weakness and falls still. He was recently admitted to [facility] for falls and weakness with alcohol intoxication. He has been planning to admit to [facility] but has been waiting for a bed. He denied significant alcohol use and states he only drank a couple sips of beer and maybe 1 glass of vodka all day yesterday. We discussed that his alcohol level was 270 on arrival and that is inconsistent with that much alcohol. He then reports that once he s tarts drinking he frequently loses track but that he does not drink daily and has gone months without drinking without withdrawal. Subjective/Events-last exam pt reports doing well. Getting a shower during my visit with aide. No complaints. Objective Exam Vital Signs Vital Signs Date Time Temp Pulse Resp B/P (MAP) Pulse Ox O2 Delivery O2 Flow Rate FiO2 12/22/20 08:21 36.4 96 20 173/68 (103) 91 Room Air 12/22/20 08:00 2.00 12/21/20 10:07 93 Capillary Refill : Less Than 3 Seconds General Appearance: No Apparent Distress, Chronically ill, Obese Respiratory: No Respiratory Distress Neurologic/Psychiatric: Alert, Oriented x3 Results/Procedures Lab Laboratory Tests 12/22/20 11:10 Patient resulted labs reviewed. Imaging: Reviewed Imaging Report Assessment/Plan Assessment and Plan Assess & Plan/Chief Complaint COPD exacerbation Continue oral steroids Off oxygen continue Rocephin Chest pain CAD stents deployed to RCA and LAD Cardiology consulted, appreciate recs DAPT statin, metoprolol, fish oil Debility Falls Alcohol abuse Alcoholic liver disease PT/OT Was attempting to get in to a NH prior to admission ([facility]) guest services ambassador consulted, appreciate recs Advised to stop drinking in excess as this is contributing to his falls and weakness Hyperglycemia Reports knowing he has problems with blood sugars but unsure if ever diagnosed Does not appear to fill anything for DM a1c 6.5 SSI Consider Metformin on discharge but not at the moment given cath today DVT ppx: SCD only due to thrombocyotpenia Diagnosis/Problems Diagnosis/Problems (1) CAD (coronary artery disease) Status: Chronic Qualifiers: Coronary Disease-Associated Artery/Lesion type: [place] artery [place] vs. transplanted heart: [place] heart Associated angina: without angina Qualified Codes: I25.10 - Atherosclerotic heart disease of [place] coronary artery without angina pectoris (2) Essential (primary) hypertension Status: Chronic (3) HLD (hyperlipidemia) Status: Chronic Qualifiers: Hyperlipidemia type: mixed hyperlipidemia Qualified Codes: E78.2 - Mixed hyperlipidemia (4) Hyperglycemia Status: Chronic (5) Debility Status: Acute (6) Obesity Status: Chronic Qualifiers: Obesity classification: adult class 3 (BMI >= 40) Body mass index: BMI 40.0-44.9 (7) Prophylactic measure (8) Thrombocytopenia Status: Chronic (9) Alcoholic cirrhosis of liver Status: Chronic Qualifiers: Ascites presence: without ascites Qualified Codes: K70.30 - Alcoholic cirrhosis of liver without ascites (10) COPD exacerbation Status: Acute (11) Chest pain Status: Acute Qualifiers: Chest pain type: unspecified Qualified Codes: R07.9 - Chest pain, unspecified (12) Alcoholism Status: Chronic (13) Tobacco abuse Status: Chronic PREETHI LECHUGA MD Dec 22, 2020 12:02
[2020-12-22] MEDS: CHLORTHALIDONE 25 MG (HYGROTON) TABLET PO SCH (14:46)
[2020-12-22 15:38] VITALS: BP 129/59
[2020-12-22 19:27] VITALS: BP 142/75
[2020-12-22] MEDS: cefTRIAXone 1,000 MG/SWFI 10 ML IV PUSH IV SCH ×2 (20:07)
[2020-12-22] MEDS: ROSUVASTATIN 10 MG (CRESTOR) TABLET PO SCH (20:07)
[2020-12-23 00:46] VITALS: BP 147/74
[2020-12-23] MEDS: RT-ALBUTEROL/IPRATROPIUM 3 ML (DUONEB) VIAL INH SCH ×4 (02:33→21:07)
[2020-12-23 03:21] VITALS: BP 154/76
[2020-12-23] MEDS: inSUlin ASPART (NovoLOG) 1 UNIT/0.01 ML (CHARGE PER UNIT) SC SCH ×4 (05:10→21:17)
[2020-12-23] MEDS: MULTIVIT W/MINERALS TAB (THERAGRAN M) PO SCH (06:11)
[2020-12-23] MEDS: predniSONE 20 MG TAB PO SCH (06:11)
[2020-12-23] MEDS: CHLORTHALIDONE 25 MG (HYGROTON) TABLET PO SCH (06:11)
[2020-12-23] MEDS: CATHETER FLUSH 10 ML SYR IV SCH ×3 (06:11→21:26)
[2020-12-23] MEDS: ACETAMINOPHEN 500 MG TAB (TYLENOL) PO PRN ×2 (06:11→18:07)
[2020-12-23 07:55] VITALS: BP 149/76
[2020-12-23] MEDS: CLOPIDOGREL 75 MG (PLAVIX) TABLET PO SCH (08:32)
[2020-12-23] MEDS: meTOproloL SUCCINATE 50 MG (TOPROL XL) TAB PO SCH (08:32)
[2020-12-23] MEDS: ASPIRIN E.C. 81 MG (ECOTRIN) TAB PO SCH (08:32)
[2020-12-23] MEDS: NICOTINE 14 MG (NICODERM) PATCH TD SCH (08:32)
[2020-12-23] MEDS: FOLIC ACID 1 MG TAB PO SCH (08:32)
[2020-12-23] MEDS: NICOTINE PATCH REMOVAL TP SCH (08:32)
[2020-12-23] MEDS: OMEGA 3 (FISH OIL) 1000 MG CAP PO SCH ×2 (08:32→18:04)
[2020-12-23] MEDS: PANTOPRAZOLE 40 MG (PROTONIX) VIAL IV SCH (08:40)
--- NOTE | 2020-12-23 10:28 | Progress Note - Hospitalist ---
Subjective HPI/CC On Admission Date Seen by Provider: Dec 23, 2020 Time Seen by Provider: 10:25 Is a 60-year-old male with past medical history of coronary artery disease, alcohol abuse, hypertension, diabetes who presented to the emergency department due to generalized pain. Per ER report he summoned EMS due to pain all over his body from "3 different types of arthritis." On EMS arrival they found his home to be quite disheveled and multiple empty bottles of alcohol scattered throughout his home. He was incidentally found to be hypoxic. He does smoke regularly. His Covid swab was negative. He was admitted to [facility] for his hypoxia. This morning he denies any generalized pain and states that he was here for chest pain that radiated to his left arm. He does not follow with a forensic specialist. He did have a cardiac cath done in January of last year with stent deployment. He denies any current chest pain. He did complain of weakness and falls still. He was recently admitted to [facility] for falls and weakness with alcohol intoxication. He has been planning to admit to [facility] but has been waiting for a bed. He denied significant alcohol use and states he only drank a couple sips of beer and maybe 1 glass of vodka all day yesterday. We discussed that his alcohol level was 270 on arrival and that is inconsistent with that much alcohol. He then reports that once he s tarts drinking he frequently loses track but that he does not drink daily and has gone months without drinking without withdrawal. Subjective/Events-last exam Pt reports doing well. Off oxygen. No complaints. Only question is about transportation to the [place]. I deferred that to . Objective Exam Vital Signs Vital Signs Date Time Temp Pulse Resp B/P (MAP) Pulse Ox O2 Delivery O2 Flow Rate FiO2 12/23/20 08:00 Nasal Cannula 2.00 12/23/20 07:55 36.7 77 20 149/76 (100) 93 12/21/20 10:07 93 Capillary Refill : Less Than 3 Seconds General Appearance: No Apparent Distress, Chronically ill, Obese Respiratory: Lungs Clear, No Respiratory Distress Cardiovascular: Regular Rate, Rhythm, No Murmur Neurologic/Psychiatric: Alert, Oriented x3 Results/Procedures Lab Laboratory Tests 12/22/20 11:10 Patient resulted labs reviewed. Imaging: Reviewed Imaging Report Assessment/Plan Assessment and Plan Assess & Plan/Chief Complaint COPD exacerbation Continue oral steroids Off oxygen continue Rocephin day 5 today Chest pain CAD stents deployed to RCA and LAD Cardiology consulted, appreciate recs DAPT statin, metoprolol, fish oil Debility Falls Alcohol abuse Alcoholic liver disease PT/OT Was attempting to get in to a NH prior to admission ([facility]) fitness services manager consulted, appreciate recs Advised to stop drinking in excess as this is contributing to his falls and weakness Plan for DC tomorrow if NH able to take Hyperglycemia Reports knowing he has problems with blood sugars but unsure if ever diagnosed Does not appear to fill anything for DM a1c 6.5 SSI Consider Metformin on discharge but not at the moment given cath today DVT ppx: SCD only due to thrombocyotpenia Diagnosis/Problems Diagnosis/Problems (1) CAD (coronary artery disease) Status: Chronic Qualifiers: Coronary Disease-Associated Artery/Lesion type: [place] artery [place] vs. transplanted heart: [place] heart Associated angina: without angina Qualified Codes: I25.10 - Atherosclerotic heart disease of [place] coronary artery without angina pectoris (2) Essential (primary) hypertension Status: Chronic (3) HLD (hyperlipidemia) Status: Chronic Qualifiers: Hyperlipidemia type: mixed hyperlipidemia Qualified Codes: E78.2 - Mixed h yperlipidemia (4) Hyperglycemia Status: Chronic (5) Debility Status: Acute (6) Obesity Status: Chronic Qualifiers: Obesity classification: adult class 3 (BMI >= 40) Body mass index: BMI 40.0-44.9 (7) Prophylactic measure (8) Thrombocytopenia Status: Chronic (9) Alcoholic cirrhosis of liver Status: Chronic Qualifiers: Ascites presence: without ascites Qualified Codes: K70.30 - Alcoholic cirrhosis of liver without ascites (10) COPD exacerbation Status: Acute (11) Chest pain Status: Acute Qualifiers: Chest pain type: unspecified Qualified Codes: R07.9 - Chest pain, unspecified (12) Alcoholism Status: Chronic (13) Tobacco abuse Status: Chronic PREETHI LECHUGA MD Dec 23, 2020 10:28
--- NOTE | 2020-12-23 11:34 | Cardiology Progress Note ---
Progress Note-Cardiology Events since last exam Date Seen by Provider: Dec 23, 2020 Time Seen by Provider: 11:29 Events since last exam I am seeing him due to coronary artery disease. He denies any further chest or arm pain. His breathing has improved. He denies palpitations, or syncope. He does get intermittent, mild ankle edema. Certain portions of this document may have been dictated utilizing voice recognition technology. Inherent to this technology, typographical and grammatical errors may exist. As much as I am diligent to identify and correct these mistakes, some errors may remain in the document. Vitals Last set of Vitals Signs Vital Signs 12/21/20 12/23/20 12/23/20 12/23/20 10:07 07:55 08:00 10:43 Temp 36.7 Pulse 77 Resp 20 B/P (MAP) 149/76 (100) Pulse Ox 92 O2 Delivery Room Air O2 Flow Rate 2.00 FiO2 93 Exam Vital Signs Vital Signs Date Time Temp Pulse Resp B/P (MAP) Pulse Ox O2 Delivery O2 Flow Rate FiO2 12/23/20 10:43 92 Room Air 12/23/20 08:00 2.00 12/23/20 07:55 36.7 77 20 149/76 (100) 12/21/20 10:07 93 Physical Exam General: Alert. No acute distress. He is obese. Eye: No xanthelasma. HENT: Normocephalic. Neck: Jugular venous pressure does not appear elevated. Respiratory: Lungs are clear to auscultation. Respirations are non-labored. Breath sounds are equal. Symmetrical chest wall expansion. Cardiovascular: Normal rate. Regular rhythm. No murmur. No gallop. Trace bilateral pretibial edema. Gastrointestinal: Soft. Normal bowel sounds. Skin: Warm. Dry. Diffuse areas of excoriation and ecchymoses on his upper and lower extremities bilaterally. Neurologic: Alert and oriented to person, place, time. Cranial nerves 3-11 grossly intact. Psychiatric: Cooperative. Appropriate mood & affect. Labs Laboratory Tests Test 12/22/20 15:40 12/22/20 21:10 12/23/20 04:57 12/23/20 11:01 Range/Units Glucometer 189 H 133 H 108 211 H 70-110 MG/DL Diagnosis/Problems Diagnosis/Problems (1) Coronary artery disease with unstable angina pectoris Assessment & Plan: He is now status post drug-eluting stents to the distal left anterior descending and distal right coronary arteries. He did not have a myocardial infarction. He has a normal ejection fraction. Continue aspirin, clopidogrel, beta-can, and statin medication. I will plan on a follow-up lipid profile approximately 6 weeks after discharge, assuming he can get to his follow-up appointment. From a cardiac standpoint, he is ready for discharge. I will also plan on a follow-up complete blood count after discharge to monitor his thrombocytopenia since he is now on clopidogrel. (2) Primary hypertension Assessment & Plan: His blood pressures are intermittently elevated. I resumed his home dose of chlorthalidone on 12/22. He is also on metoprolol. I would hold off on making any additional adjustments at this point in time where he could develop hypotension after discharge. (3) Mixed hyperlipidemia Status: Chronic Assessment & Plan: I have started him on low-dose statin medication and fish oil. He will need a follow-up lipid panel in approximately 6 weeks after discha rge. (4) Thrombocytopenia Status: Chronic Assessment & Plan: I suspect this may be related to his alcohol abuse. We will monitor this longitudinally after discharge. (5) Cigarette smoker Assessment & Plan: He was strongly advised to quit smoking. He does seem to realize this has negative health consequences. He hopes to be admitted to a [facility] and is hoping this will help with smoking cessation. (6) Morbid obesity Assessment & Plan: He needs to work on weight loss. Problem Qualifiers (1) Coronary artery disease with unstable angina pectoris: Qualified Codes: I25.110 - Atherosclerotic heart disease of [place] coronary artery with unstable angina pectoris NANCY GIVENS JR, MD Dec 23, 2020 11:34
[2020-12-23 11:39] VITALS: BP 157/72
[2020-12-23 16:00] VITALS: BP 140/67
[2020-12-23] MEDS: clonazePAM 1 MG (KlonoPIN) TAB PO PRN (18:07)
[2020-12-23 19:52] VITALS: BP 129/72
[2020-12-23] MEDS: cefTRIAXone 1,000 MG/SWFI 10 ML IV PUSH IV SCH ×2 (21:26)
[2020-12-23] MEDS: ROSUVASTATIN 10 MG (CRESTOR) TABLET PO SCH (21:26)
[2020-12-24 00:13] VITALS: BP 143/67
[2020-12-24] MEDS: RT-ALBUTEROL/IPRATROPIUM 3 ML (DUONEB) VIAL INH SCH ×3 (02:32→22:06)
[2020-12-24 04:00] VITALS: BP 151/72
[2020-12-24] MEDS: inSUlin ASPART (NovoLOG) 1 UNIT/0.01 ML (CHARGE PER UNIT) SC SCH ×4 (05:33→20:58)
[2020-12-24] MEDS: predniSONE 20 MG TAB PO SCH (06:08)
[2020-12-24] MEDS: ACETAMINOPHEN 500 MG TAB (TYLENOL) PO PRN ×3 (06:09→22:11)
[2020-12-24] MEDS: CATHETER FLUSH 10 ML SYR IV SCH ×3 (06:09→20:38)
[2020-12-24] MEDS: CHLORTHALIDONE 25 MG (HYGROTON) TABLET PO SCH (06:09)
[2020-12-24] MEDS: MULTIVIT W/MINERALS TAB (THERAGRAN M) PO SCH (06:09)
[2020-12-24 07:56] VITALS: BP 144/79
[2020-12-24] MEDS: clonazePAM 1 MG (KlonoPIN) TAB PO PRN ×2 (08:36→15:27)
[2020-12-24] MEDS: NICOTINE PATCH REMOVAL TP SCH (08:36)
[2020-12-24] MEDS: NICOTINE 14 MG (NICODERM) PATCH TD SCH (08:36)
[2020-12-24] MEDS: CLOPIDOGREL 75 MG (PLAVIX) TABLET PO SCH (08:36)
[2020-12-24] MEDS: meTOproloL SUCCINATE 50 MG (TOPROL XL) TAB PO SCH (08:36)
[2020-12-24] MEDS: PANTOPRAZOLE 40 MG (PROTONIX) VIAL IV SCH (08:36)
[2020-12-24] MEDS: FOLIC ACID 1 MG TAB PO SCH (08:36)
[2020-12-24] MEDS: ASPIRIN E.C. 81 MG (ECOTRIN) TAB PO SCH (08:36)
[2020-12-24] MEDS: OMEGA 3 (FISH OIL) 1000 MG CAP PO SCH ×2 (08:36→17:12)
--- NOTE | 2020-12-24 09:50 | Cardiology Progress Note ---
Progress Note-Cardiology Events since last exam Date Seen by Provider: Dec 24, 2020 Time Seen by Provider: 09:45 Events since last exam I am following him due to coronary artery disease. He denies any further chest discomfort. He denies dyspnea at rest. He denies palpitations, syncope, or ank le edema. Certain portions of this document may have been dictated utilizing voice recognition technology. Inherent to this technology, typographical and grammatical errors may exist. As much as I am diligent to identify and correct these mistakes, some errors may remain in the document. Vitals Last set of Vitals Signs Vital Signs 12/21/20 12/24/20 12/24/20 10:07 07:56 08:00 Temp 36.8 Pulse 82 Resp 22 B/P (MAP) 144/79 (100) Pulse Ox 94 O2 Delivery Nasal Cannula O2 Flow Rate 2.00 FiO2 93 Exam Vital Signs Vital Signs Date Time Temp Pulse Resp B/P (MAP) Pulse Ox O2 Delivery O2 Flow Rate FiO2 12/24/20 08:00 Nasal Cannula 2.00 12/24/20 07:56 36.8 82 22 144/79 (100) 94 12/21/20 10:07 93 Physical Exam General: Alert. No acute distress. He is obese. Eye: No xanthelasma. HENT: Normocephalic. Neck: Jugular venous pressure does not appear elevated. Respiratory: Lungs are clear to auscultation. Respirations are non-labored. Breath sounds are equal. Symmetrical chest wall expansion. Cardiovascular: Normal rate. Regular rhythm. No murmur. No gallop. Trace bilateral pretibial edema. Gastrointestinal: Soft. Normal bowel sounds. Skin: Warm. Dry. Neurologic: Alert and oriented to person, place, time. Cranial nerves 3-11 grossly intact. Psychiatric: Cooperative. Appropriate mood & affect. Labs Laboratory Tests Test 12/23/20 11:01 12/23/20 16:09 12/23/20 20:53 12/24/20 05:30 Range/Units Glucometer 211 H 157 H 129 H 126 H 70-110 MG/DL Diagnosis/Problems Diagnosis/Problems (1) Coronary artery disease with unstable angina pectoris Assessment & Plan: He is now status post drug-eluting stents to the distal left anterior descending and distal right coronary arteries. His previous stent in the left circumflex coronary artery was patent. He did not have a myocardial infarction. He has a normal ejection fraction. Continue aspirin, clopidogrel, beta-can, and statin medication. I will plan on a follow-up lipid profile approximately 6 weeks after discharge, assuming he can get to his follow-up brea ointment. From a cardiac standpoint, he is ready for discharge. I will also plan on a follow-up complete blood count after discharge to monitor his thrombocytopenia since he is now on clopidogrel. (2) Primary hypertension Assessment & Plan: His blood pressures remain intermittently elevated. I resumed his home dose of chlorthalidone on 12/22. He is also on metoprolol. I will start him on losartan 50 mg once a day. (3) Mixed hyperlipidemia Status: Chronic Assessment & Plan: I have started him on low-dose statin medication and fish oil. He will need a follow-up lipid panel in approximately 6 weeks after discharge. We will need to watch his liver profile given his history of alcohol abuse. (4) Thrombocytopenia Status: Chronic Assessment & Plan: I suspect this may be related to his alcohol abuse. We will monitor this longitudinally after discharge. The plan is to transfer him to a skilled nursing which will mean he will not be able to consume excessive amounts of alcohol and hopefully the thrombocytopenia will recover. (5) Cigarette smoker Assessment & Plan: He was strongly advised to quit smoking. He does seem to realize this has negative health consequences. He hopes to be admitted to a skilled nursing and is hoping this will help with smoking cessation. (6) Morbid obesity Assessment & Plan: He needs to work on weight loss. Problem Qualifiers (1) Coronary artery disease with unstable angina pectoris: Qualified Codes: I25.110 - Atherosclerotic heart disease of [place] coronary artery with unstable angina pectoris NANCY GIVENS JR, MD Dec 24, 2020 09:50
[2020-12-24] MEDS ORDERED: LOSARTAN 50 MG (COZAAR) TAB PO ONE (10:00)
[2020-12-24 11:54] VITALS: BP 177/80
[2020-12-24] MEDS ORDERED: LOSARTAN 50 MG (COZAAR) TAB ONE (12:12)
--- NOTE | 2020-12-24 12:56 | Progress Note - Hospitalist ---
Subjective HPI/CC On Admission Date Seen by Provider: Dec 24, 2020 Time Seen by Provider: 09:45 Is a 60-year-old male with past medical history of coronary artery disease, alcohol abuse, hypertension, diabetes who presented to the emergency department due to generalized pain. Per ER report he summoned EMS due to pain all over his body from "3 different types of arthritis." On EMS arrival they found his home to be quite disheveled and multiple empty bottles of alcohol scattered throughout his home. He was incidentally found to be hypoxic. He does smoke regularly. His Covid swab was negative. He was admitted to [facility] for his hypoxia. This morning he denies any generalized pain and states that he was here for chest pain that radiated to his left arm. He does not follow with a lockstitch collar setter. He did have a cardiac cath done in January of last year with stent deployment. He denies any current chest pain. He did complain of wea kness and falls still. He was recently admitted to [facility] for falls and weakness with alcohol intoxication. He has been planning to admit to [facility] but has been waiting for a bed. He denied significant alcohol use and states he only drank a couple sips of beer and maybe 1 glass of vodka all day yesterday. We discussed that his alcohol level was 270 on arrival and that is inconsistent with that much alcohol. He then reports that once he starts drinking he frequently loses track but that he does not drink daily and has gone months without drinking without withdrawal. Subjective/Events-last exam He denies shortness of breath. He denies pain. He has no complaints or concerns. Objective Exam Vital Signs Vital Signs Date Time Temp Pulse Resp B/P (MAP) Pulse Ox O2 Delivery O2 Flow Rate FiO2 12/24/20 11:54 36.8 86 22 177/80 (112) 92 Room Air 12/24/20 10:17 21 12/24/20 08:00 2.00 Capillary Refill : Less Than 3 Seconds General Appearance: No Apparent Distress, Obese Respiratory: Lungs Clear, Normal Breath Sounds, No Respiratory Distress Cardiovascular: Regular Rate, Rhythm, No Edema, No Murmur Gastrointestinal: Normal Bowel Sounds, Non Tender, Soft Extremity: Normal Inspection, Non Tender, No Pedal Edema Neurologic/Psychiatric: Alert, Oriented x3, Normal Mood/Affect, Motor Weakness Skin: Normal Color, Warm/Dry Results/Procedures Lab Patient resulted labs reviewed. Imaging: Reviewed Imaging Report Assessment/Plan Assessment and Plan Assess & Plan/Chief Complaint COPD exacerbation Continue oral steroids MAT protocol s/p Rocephin Chest pain CAD stents deployed to RCA and LAD Cardiology consulted, appreciate recs DAPT statin, metoprolol, fish oil Debility Falls Alcohol abuse Alcoholic liver disease PT/OT environmental services tech consulted, appreciate recs Awaiting acceptance to [facility] T2DM New diagnosis, not on home meds A1c 6.5 SSI Consider Metformin on discharge DVT ppx: SCD only due to thrombocyotpenia Diagnosis/Problems Diagnosis/Problems (1) COPD (chronic obstructive pulmonary disease) Status: Acute Qualifiers: COPD type: COPD with acute exacerbation Qualified Codes: J44.1 - Chronic obstructive pulmonary disease with (acute) exacerbation (2) CAD (coronary artery disease) Status: Acute Qualifiers: Coronary Disease-Associated Artery/Lesion type: [place] artery [place] vs. transplanted heart: [place] heart Associated angina: with stable angina Qualified Codes: I25.118 - Atherosclerotic heart disease of [place] coronary artery with other forms of angina pectoris (3) Debility Status: Acute FRANC GIPSON MD Dec 24, 2020 12:56
--- NOTE | 2020-12-24 13:33 | Occupational Ther Daily Note ---
OT Current Status-Daily Note Subjective Pt. alert in recliner. Pt agrees to therapy. Mental Status/Objective Patient Orientation: Person, Place, Time, Situation ADL-Treatment Pt. states able to cleans buttocks independently. Pt. placed L grippy sock independently with fig.4 technique. Pt. declined to don R sock stating hip pain from a fall, assist given. Therapy Code Descriptions/Definitions Functional [place] Measure: 0=Not Assessed/NA 4=Minimal Assistance 1=Total Assistance 5=Supervision or Setup 2=Maximal Assistance 6=Modified [place] 3=Moderate Assistance 7=Complete IndependenceSCALE: Activities may be completed with or without assistive devices. 4-Yzebynxhvo-wynsjnp completes the activity by him/herself with no assistance from a helper. 5-Set-up or Clean-up Assistance-helper sets up or cleans up; patient completes activity. [place] assists only prior to or following the activity. 4-Supervision or Touching Assistance-helper provides verbal cues and/or touching/steadying and/or contact guard assistance as patient completes activity. Assistance may be provided throughout the activity or intermittently. 3-Partial/Moderate Assistance-helper does LESS THAN HALF the effort. [place] lifts, holds or supports trunk or limbs, but provides less than half the effort. 2-Substantial/Maximal Assistance-helper does MORE THAN HALF the effort. [place] lifts or holds trunk or limbs and provides more than half the effort. 1-Gwdydurin-tcoxuc does ALL the effort. Patient does none of the effort to complete the activity. Or, the assistance of 2 or more helpers is required for the patient to complete the activity. If activity was not attempted, code reason: 7-Patient Refused. 9-Not Applicable-not attempted and the patient did not perform the activity before the current illness, exacerbation or injury. 10-Not Attempted due to Environmental Limitations-(lack of equipment, weather restraints, etc.). 88-Not Attempted due to Medical Conditions or Safety Concerns. Other Treatment Pt. offered to stand/walk, completed two laps around hospital room with CGA us ing FWW. Pt. performed UE ex's bicep curl, tricep ext, horizontal shoulder abd/add 10 reps 2 sets. Pt. left in recliner, call light/phone in reach. All needs met in room. OT Long-Term Goals Home Health Registered Nurse Goals Oral Hygiene (QC): 4 Toileting Hygiene (QC): 4 Lower Body Dressing (QC): 4 On/Off Footwear (QC): 4 1=Demonstrate adherence to instructed precautions during ADL tasks. 2=Patient will verbalize/demonstrate understanding of assistive devices/modifications for ADL. 3=Patient will improve strength/tolerance for activity to enable patient to perform ADL's. OT Education/Plan Problem List/Assessment Assessment: Decreased Activ Tolerance, Decreased Safety Aware, Decreased UE Strength, Impaired Self-Care Skills Discharge Recommendations Plan/Recommendations: Continue POC Treatment Plan/Plan of Care Patient would benefit from OT for education, treatment and training to promote independence in ADL's, mobility, safety and/or upper extremity function for ADL's. Plan of Care: ADL Retraining, Functional Mobility, UE Funct Exercise/Act Treatment Duration: Jan 04, 2021 Frequency: 5 times per week Estimated Hrs Per Day: .25 hour per day Rehab Potential: Good Time/GCodes Start Time: 13:15 Stop Time: 13:30 Total Time Billed (hr/min): 15 Billed Treatment Time 1 visit- 1 FA Charissa15ALBERTO CAMARILLO Dec 24, 2020 13:33
--- NOTE | 2020-12-24 15:02 | Physical Therapy Daily Note ---
PT Daily Note-Current Subjective Pt in recliner upon arrival and agrees to tx. Pt states somebody was just in his room "to walk him." Mental Status Patient Orientation: Person, Place, Situation Transfers SCALE: Activities may be completed with or without assistive devices. 6-Vxsfxozncu-wwkuqrz completes the activity by him/herself with no assistance from a helper. 5-Set-up or Clean-up Assistance-helper sets up or cleans up; patient completes activity. [place] assists only prior to or following the activity. 4-Supervision or Touching Assistance-helper provides verbal cues and/or touching/steadying and/or contact guard assistance as patient completes activ ity. Assistance may be provided throughout the activity or intermittently. 3-Partial/Moderate Assistance-helper does LESS THAN HALF the effort. [place] lifts, holds or supports trunk or limbs, but provides less than half the effort. 2-Substantial/Maximal Assistance-helper does MORE THAN HALF the effort. [place] lifts or holds trunk or limbs and provides more than half the effort. 5-Xbdzixshj-piitpv does ALL the effort. Patient does none of the effort to complete the activity. Or, the assistance of 2 or more helpers is required for the patient to complete the activity. If activity was not attempted, code reason: 7-Patient Refused. 9-Not Applicable-not attempted and the patient did not perform the activity before the current illness, exacerbation or injury. 10-Not Attempted due to Environmental Limitations-(lack of equipment, weather restraints, etc.). 88-Not Attempted due to Medical Conditions or Safety Concerns. Sit to Stand (QC): 5 Weight Bearing Right Lower Extremity: Right Weight Bearing/Tolerated Left Lower Extremity: Left Weight Bearing/Tolerated Gait Training Does the Patient Walk?: Yes Distance: 50' Walk 10 feet (QC): 4 Walk 50 ft with 2 Turns(QC): 4 Gait Persons Needed: 1 Gait Assistive Device: FWW Treatments Pt sit to stand SBA and amb 50' in room w/ FWW and CGA. Pt has no LOB or gait deviations noted at this time. Pt returns to recliner post amb and was left with all needs met, call light in hand. Assessment Current Status: Good Progress Pt increasing endurance and strength PT It Account Manager Goals It Account Manager Goals PT Residential Goals Time Frame: Jan 02, 2021 Sit to Lying (QC): 6 Lying-Sitting on Side/Bed(QC): 6 Sit to Stand (QC): 6 Chair/Gyv-lg-Bxqno Xfer(QC): 6 Does the Patient Walk: Yes Walk 10 feet (QC): 6 Walk 50ft with 2 Turns (QC): 6 PT Plan Treatment/Plan Treatment Plan: Continue Plan of Care Treatment Plan: Bed Mobility, Education, Functional Activity Dm, Functional Strength, Gait, Safety, Therapeutic Exercise, Transfers Treatment Duration: Jan 02, 2021 Frequency: 6 times per week Estimated Hrs Per Day: .25 hour per day Patient and/or Family Agrees t: Yes Time/GCodes Time In: 1413 Time Out: 1421 Total Billed Treatment Time: 8 Total Billed Treatment 1, GT BEREKET CASTILLO IMPLEMENTATION LEAD Dec 24, 2020 15:02
[2020-12-24 15:30] VITALS: BP 120/59
[2020-12-24 20:00] VITALS: BP 126/59
[2020-12-24] MEDS: ROSUVASTATIN 10 MG (CRESTOR) TABLET PO SCH (20:38)
[2020-12-25 00:33] VITALS: BP 131/70
[2020-12-25 04:13] VITALS: BP 142/67
[2020-12-25] MEDS: CHLORTHALIDONE 25 MG (HYGROTON) TABLET PO SCH (05:27)
[2020-12-25] MEDS: MULTIVIT W/MINERALS TAB (THERAGRAN M) PO SCH (05:27)
[2020-12-25] MEDS: predniSONE 20 MG TAB PO SCH (05:27)
[2020-12-25] MEDS: ACETAMINOPHEN 500 MG TAB (TYLENOL) PO PRN ×3 (05:28→18:04)
[2020-12-25] MEDS: CATHETER FLUSH 10 ML SYR IV SCH ×3 (05:29→19:36)
[2020-12-25] MEDS: inSUlin ASPART (NovoLOG) 1 UNIT/0.01 ML (CHARGE PER UNIT) SC SCH ×4 (05:29→20:14)
[2020-12-25 07:53] VITALS: BP 179/83
[2020-12-25] MEDS: LOSARTAN 50 MG (COZAAR) TAB PO SCH (08:33)
[2020-12-25] MEDS: ASPIRIN E.C. 81 MG (ECOTRIN) TAB PO SCH (08:33)
[2020-12-25] MEDS: OMEGA 3 (FISH OIL) 1000 MG CAP PO SCH ×2 (08:33→18:02)
[2020-12-25] MEDS: meTOproloL SUCCINATE 50 MG (TOPROL XL) TAB PO SCH (08:33)
[2020-12-25] MEDS: NICOTINE PATCH REMOVAL TP SCH (08:33)
[2020-12-25] MEDS: CLOPIDOGREL 75 MG (PLAVIX) TABLET PO SCH (08:33)
[2020-12-25] MEDS: PANTOPRAZOLE 40 MG (PROTONIX) VIAL IV SCH (08:33)
[2020-12-25] MEDS: NICOTINE 14 MG (NICODERM) PATCH TD SCH (08:33)
[2020-12-25] MEDS: FOLIC ACID 1 MG TAB PO SCH (08:33)
[2020-12-25] MEDS: RT-ALBUTEROL/IPRATROPIUM 3 ML (DUONEB) VIAL INH SCH ×2 (08:45→20:15)
--- NOTE | 2020-12-25 09:56 | Cardiology Progress Note ---
Progress Note-Cardiology Events since last exam Date Seen by Provider: Dec 25, 2020 Time Seen by Provider: 09:54 Events since last exam I am following him for coronary artery disease. He had a brief episode of mild chest discomfort last evening. This was in the center of his chest. This occur red at rest. He denies associated complaints. He did not tell the nurse. This resolved spontaneously. This has not recurred. He denies dyspnea at rest, palpitations, syncope, or ankle edema. Certain portions of this document may have been dictated utilizing voice recognition technology. Inherent to this technology, typographical and grammatical errors may exist. As much as I am diligent to identify and correct these mistakes, some errors may remain in the document. Vitals Last set of Vitals Signs Vital Signs 12/24/20 12/24/20 12/25/20 08:00 10:17 11:39 Temp 36.4 Pulse 86 Resp 18 B/P (MAP) 141/70 (93) Pulse Ox 93 O2 Delivery Room Air O2 Flow Rate 2.00 FiO2 21 Exam Vital Signs Vital Signs Date Time Temp Pulse Resp B/P (MAP) Pulse Ox O2 Delivery O2 Flow Rate FiO2 12/25/20 11:39 36.4 86 18 141/70 (93) 93 Room Air 12/24/20 10:17 21 12/24/20 08:00 2.00 Physical Exam General: Alert. No acute distress. He is obese. Eye: No xanthelasma. HENT: Normocephalic. Neck: Jugular venous pressure does not appear elevated. Respiratory: Lungs are clear to auscultation. Respirations are non-labored. Krista ath sounds are equal. Symmetrical chest wall expansion. Cardiovascular: Normal rate. Regular rhythm. No murmur. No gallop. Trace bilateral pretibial edema. Gastrointestinal: Soft. Normal bowel sounds. Skin: Warm. Dry. Neurologic: Alert and oriented to person, place, time. Cranial nerves 3-11 grossly intact. Psychiatric: Cooperative. Appropriate mood & affect. Labs Laboratory Tests Test 12/24/20 15:21 12/24/20 20:45 12/25/20 05:29 12/25/20 10:02 Range/Units Glucometer 172 H 136 H 117 H 259 H 70-110 MG/DL Diagnosis/Problems Diagnosis/Problems (1) Coronary artery disease with unstable angina pectoris Assessment & Plan: He is now status post drug-eluting stents to the distal left anterior descending and distal right coronary arteries with 1 stent in each vessel. His previous stent in the left circumflex coronary artery was patent. He did not have a myocardial infarction. He has a normal ejection fraction. Continue aspirin, clopidogrel, beta-can, and statin medication. I will plan on a follow-up lipid profile approximately 6 weeks after discharge, assuming he can get to his follow-up appointment. He had 1 brief episode of chest discomfort last evening of unclear significance. I ordered a follow-up electrocardiogram which is pending. From a cardiac standpoint, he is ready for discharge. I will also plan on a follow-up complete blood count after discharge to monitor his thrombocytopenia since he is now on clopidogrel. (2) Primary hypertension Assessment & Plan: His blood pressures remain intermittently elevated but overall seem to be improving. I resumed his home dose of chlorthalidone on 12/22. He is also on metoprolol. I started him him on losartan 50 mg once a day on 12/24. (3) Mixed hyperlipidemia Status: Chronic Assessment & Plan: I have started him on low-dose statin medication and fish oil. He will need a follow-up lipid panel in approximately 6 weeks after discharge. We will need to watch his liver profile given his history of alcohol abuse. Hopefully, if he is transferred to a [facility] facility, he want to be abusing alcohol in the future. (4) Thrombocytopenia Status: Chronic Assessment & Plan: I suspect this may be related to his alcohol abuse. We will monitor this longitudinally after discharge. The plan is to transfer him to a [facility] which will mean he will not be able to consume excessive amounts of alcohol and hopefully the thrombocytopenia will recover. (5) Cigarette smoker Assessment & Plan: He was strongly advised to quit smoking. He does seem to realize this has negative health consequences. He hopes to be admitted to a [facility] and is hoping this will help with smoking cessation. (6) Morbid obesity Assessment & Plan: He needs to work on weight loss. Problem Qualifiers (1) Coronary artery disease with unstable angina pectoris: Qualified Codes: I25.110 - Atherosclerotic heart disease of [place] coronary artery with unstable angina pectoris NANCY GIVENS JR, MD Dec 25, 2020 09:56
[2020-12-25] MEDS ORDERED: COVID-19 VACC, MRNA(PFIZER)/PF 30 MCG/0.3 ML VIAL IM ONE (11:15)
--- NOTE | 2020-12-25 11:30 | Occupational Ther Daily Note ---
OT Current Status-Daily Note Subjective Pt alert, sitting in recliner. Pt agrees to therapy. Pt states that he will ambulate for PT, but wasn't going ambulate for OT today. Does agrees to complete B UE exercises. Mental Status/Objective Patient Orientation: Person, Place, Situation Attachments: IV, Telemetry ADL-Treatment Pt declines to complete bathing or oral care. Therapy Code Descriptions/Definitions Functional [place] Measure: 0=Not Assessed/NA 4=Minimal Assistance 1=Total Assistance 5=Supervision or Setup 2=Maximal Assistance 6=Modified [place] 3=Moderate Assistance 7=Complete IndependenceSCALE: Activities may be completed with or without assistive devices. 9-Dgiwquohwf-nrooxcs completes the activity by him/herself with no assistance from a helper. 5-Set-up or Clean-up Assistance-helper sets up or cleans up; patient completes activity. [place] assists only prior to or following the activity. 4-Supervision or Touching Assistance-helper provides verbal cues and/or touching/steadying and/or contact guard assistance as patient completes activity. Assistance may be provided throughout the activity or intermittently. 3-Partial/Moderate Assistance-helper does LESS THAN HALF the effort. [place] lifts, holds or supports trunk or limbs, but provides less than half the effort. 2-Substantial/Maximal Assistance-helper does MORE THAN HALF the effort. [place] lifts or holds trunk or limbs and provides more than half the effort. 2-Ectpsrcmo-oabbai does ALL the effort. Patient does none of the effort to complete the activity. Or, the assistance of 2 or more helpers is required for the patient to complete the activity. If activity was not attempted, code reason: 7-Patient Refused. 9-Not Applicable-not attempted and the patient did not perform the activity before the current illness, exacerbation or injury. 10-Not Attempted due to Environmental Limitations-(lack of equipment, weather restraints, etc.). 88-Not Attempted due to Medical Conditions or Safety Concerns. Other Treatment Pt given HEP for medium resistance theraband exercises to increase strength and activity tolerance. Skilled instruction for correct technique required. Pt completed 5 exercises with medium resistance theraband in all planes. Completed 15 reps 1 set with each exercise except with bicep curls for L UE due to midline. After therapy, pt sitting in recliner eating lunch. Call light/phone in reach. All needs met in room. OT Footwear Sales Associate Goals Footwear Sales Associate Goals Oral Hygiene (QC): 4 Toileting Hygiene (QC): 4 Lower Body Dressing (QC): 4 On/Off Footwear (QC): 4 1=Demonstrate adherence to instructed precautions during ADL tasks. 2=Patient will verbalize/demonstrate understanding of assistive devic es/modifications for ADL. 3=Patient will improve strength/tolerance for activity to enable patient to perform ADL's. OT Education/Plan Problem List/Assessment Assessment: Decreased Activ Tolerance, Decreased UE Strength, Impaired Self- Care Skills Discharge Recommendations Plan/Recommendations: Continue POC Treatment Plan/Plan of Care Patient would benefit from OT for education, treatment and training to promote independence in ADL's, mobility, safety and/or upper extremity function for ADL's. Plan of Care: ADL Retraining, Functional Mobility, UE Funct Exercise/Act Treatment Duration: Jan 04, 2021 Frequency: 5 times per week Estimated Hrs Per Day: .25 hour per day Rehab Potential: Good Time/GCodes Start Time: 11:19 Stop Time: 11:30 Total Time Billed (hr/min): 11 Billed Treatment Time 1 visit-EX 1 (11 min) ALBERTO NAYAK Dec 25, 2020 11:30
[2020-12-25 11:39] VITALS: BP 141/70
--- NOTE | 2020-12-25 14:32 | Physical Therapy Daily Note ---
PT Daily Note-Current Subjective Patient agrees to PT. Transfers SCALE: Activities may be completed with or without assistive devices. 2-Ueleyxjzxu-sksjrkg completes the activity by him/herself with no assistance from a helper. 5-Set-up or Clean-up Assistance-helper sets up or cleans up; patient completes activity. [place] assists only prior to or following the activity. 4-Supervision or Touching Assistance-helper provides verbal cues and/or touching/steadying and/or contact guard assistance as patient completes activity. Assistance may be provided throughout the activity or intermittently. 3-Partial/Moderate Assistance-helper does LESS THAN HALF the effort. [place] lifts, holds or supports trunk or limbs, but provides less than half the effort. 2-Substantial/Maximal Assistance-helper does MORE THAN HALF the effort. [place] lifts or holds trunk or limbs and provides more than half the effort. 1-Nrqyrihpb-bidobp does ALL the effort. Patient does none of the effort to complete the activity. Or, the assistance of 2 or more helpers is required for the patient to complete the activity. If activity was not attempted, code reason: 7-Patient Refused. 9-Not Applicable-not attempted and the patient did not perform the activity before the current illness, exacerbation or injury. 10-Not Attempted due to Environmental Limitations-(lack of equipment, weather restraints, etc.). 88-Not Attempted due to Medical Conditions or Safety Concerns. Sit to Lying (QC): 6 Sit to Stand (QC): 4 (SBA) Weight Bearing Right Lower Extremity: Right Weight Bearing/Tolerated Left Lower Extremity: Left Weight Bearing/Tolerated Gait Training Does the Patient Walk?: Yes Distance: 225' Walk 10 feet (QC): 4 Walk 50 ft with 2 Turns(QC): 4 Walk 150 ft (QC): 4 Gait Assistive Device: FWW slow,steady Assessment Current Status: Excellent Progress PT Alf Goals Alf Goals PT Alf Goals Time Frame: Jan 02, 2021 Sit to Lying (QC): 6 Lying-Sitting on Side/Bed(QC): 6 Sit to Stand (QC): 6 Chair/Pig-hr-Jiyta Xfer(QC): 6 Does the Patient Walk: Yes Walk 10 feet (QC): 6 Walk 50ft with 2 Turns (QC): 6 PT Plan Treatment/Plan Treatment Plan: Continue Plan of Care Treatment Plan: Bed Mobility, Education, Functional Activity Dm, Functional Strength, Gait, Safety, Therapeutic Exercise, Transfers Treatment Duration: Jan 02, 2021 Frequency: 6 times per week Estimated Hrs Per Day: .25 hour per day Patient and/or Family Agrees t: Yes Time/GCodes Time In: 1317 Time Out: 1329 Total Billed Treatment Time: 12 Total Billed Treatment 1 visit FA 12 min SHERI MICHELLE PT Dec 25, 2020 14:32
[2020-12-25] MEDS: clonazePAM 1 MG (KlonoPIN) TAB PO PRN ×2 (14:35→23:27)
[2020-12-25 16:20] VITALS: BP 130/60
--- NOTE | 2020-12-25 17:15 | Progress Note - Hospitalist ---
Subjective HPI/CC On Admission Date Seen by Provider: Dec 25, 2020 Time Seen by Provider: 10:45 Is a 60-year-old male with past medical history of coronary artery disease, alcohol abuse, hypertension, diabetes who presented to the emergency department due to generalized pain. Per ER report he summoned EMS due to pain all over his body from "3 different types of arthritis." On EMS arrival they found his home to be quite disheveled and multiple empty bottles of alcohol scattered throughout his home. He was incidentally found to be hypoxic. He does smoke regularly. His Covid swab was negative. He was admitted to [facility] for his hypoxia. This morning he denies any generalized pain and states that he was here for chest pain that radiated to his left arm. 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 He did have a cardiac cath done in January of last year with stent deployment. He denies any current chest pain. He did complain of wea kness and falls still. He was recently admitted to [facility] for falls and weakness with alcohol intoxication. He has been planning to admit to [facility] but has been waiting for a bed. He denied significant alcohol use and states he only drank a couple sips of beer and maybe 1 glass of vodka all day yesterday. We discussed that his alcohol level was 270 on arrival and that is inconsistent with that much alcohol. He then reports that once he starts drinking he frequently loses track but that he does not drink daily and has gone months without drinking without withdrawal. Subjective/Events-last exam He is feeling well. He has been working with physical therapy. He is not short of breath. He denies pain. Objective Exam Vital Signs Vital Signs Date Time Temp Pulse Resp B/P (MAP) Pulse Ox O2 Delivery O2 Flow Rate FiO2 12/25/20 16:20 36.0 70 20 130/60 (83) 95 Room Air 12/24/20 10:17 21 12/24/20 08:00 2.00 Capillary Refill : Less Than 3 Seconds General Appearance: No Apparent Distress, Obese Respiratory: Lungs Clear, Normal Breath Sounds, No Respiratory Distress Cardiovascular: Regular Rate, Rhythm, No Edema, No Murmur Gastrointestinal: Normal Bowel Sounds, Non Tender, Soft Extremity: Normal Inspection, Non Tender, No Pedal Edema Neurologic/Psychiatric: Alert, Oriented x3, No Motor/Sensory Deficits, Normal Mood/Affect Skin: Normal Color, Warm/Dry Results/Procedures Lab Patient resulted labs reviewed. 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 transplanted heart: [place] heart Associated angina: with stable angina Qualified Codes: I25.118 - Atherosclerotic heart disease of [place] coronary artery with other forms of angina pectoris (3) Debility Status: Acute FRANC GIPSON MD Dec 25, 2020 17:15
[2020-12-25] MEDS: ROSUVASTATIN 10 MG (CRESTOR) TABLET PO SCH (19:36)
[2020-12-25 20:06] VITALS: BP 123/58
[2020-12-26 00:12] VITALS: BP 128/74
[2020-12-26] MEDS: ACETAMINOPHEN 500 MG TAB (TYLENOL) PO PRN ×3 (02:16→16:06)
[2020-12-26 04:36] VITALS: BP 124/66
[2020-12-26] MEDS: inSUlin ASPART (NovoLOG) 1 UNIT/0.01 ML (CHARGE PER UNIT) SC SCH ×4 (05:37→21:07)
[2020-12-26] MEDS: CHLORTHALIDONE 25 MG (HYGROTON) TABLET PO SCH (06:01)
[2020-12-26] MEDS: MULTIVIT W/MINERALS TAB (THERAGRAN M) PO SCH (06:01)
[2020-12-26] MEDS: CATHETER FLUSH 10 ML SYR IV SCH ×3 (06:02→21:13)
[2020-12-26] MEDS: predniSONE 20 MG TAB PO SCH (06:02)
[2020-12-26 08:00] VITALS: BP 147/67
[2020-12-26] MEDS ORDERED: metFORMIN 500 MG (GLUCOPHAGE) TAB PO ONE (08:00)
[2020-12-26] MEDS: NICOTINE 14 MG (NICODERM) PATCH TD SCH (08:12)
[2020-12-26] MEDS: LOSARTAN 50 MG (COZAAR) TAB PO SCH (08:12)
[2020-12-26] MEDS: NICOTINE PATCH REMOVAL TP SCH (08:12)
[2020-12-26] MEDS: CLOPIDOGREL 75 MG (PLAVIX) TABLET PO SCH (08:12)
[2020-12-26] MEDS: meTOproloL SUCCINATE 50 MG (TOPROL XL) TAB PO SCH (08:12)
[2020-12-26] MEDS: ASPIRIN E.C. 81 MG (ECOTRIN) TAB PO SCH (08:12)
[2020-12-26] MEDS: PANTOPRAZOLE 40 MG (PROTONIX) TAB PO SCH (08:12)
[2020-12-26] MEDS: OMEGA 3 (FISH OIL) 1000 MG CAP PO SCH ×2 (08:12→18:18)
[2020-12-26] MEDS: FOLIC ACID 1 MG TAB PO SCH (08:12)
[2020-12-26 08:31] LABS: EOSINOPHILS # (AUTO) 0.1 10^3/uL (0.0-0.3); EOSINOPHILS % (AUTO) 2 % (0-10); HEMOGLOBIN 13.3 g/dL (13.3-17.7); MEAN CORPUSCULAR HEMOGLOBIN 35 pg (25-34)
[2020-12-26] MEDS: RT-ALBUTEROL/IPRATROPIUM 3 ML (DUONEB) VIAL INH SCH ×2 (08:32→21:11)
[2020-12-26 08:33] LABS: BASOPHILS % (AUTO) 0 % (0-10); HEMATOCRIT 39 % (40-54); LYMPHOCYTES # (AUTO) 1.6 10^3/uL (1.0-4.0); LYMPHOCYTES % (AUTO) 32 % (12-44); MEAN CORPUSCULAR HGB CONC 34 g/dL (32-36); MEAN CORPUSCULAR VOLUME 104 fL (80-99); MEAN PLATELET VOLUME 10.3 fL (9.0-12.2); MONOCYTES # (AUTO) 0.3 10^3/uL (0.0-1.0); MONOCYTES % (AUTO) 6 % (0-12); NEUTROPHILS % (AUTO) 59 % (42-75); PLATELET COUNT 98 10^3/uL (130-400); WHITE BLOOD COUNT 5.1 10^3/uL (4.3-11.0)
[2020-12-26 08:41] LABS: CALCIUM 9.4 MG/DL (8.5-10.1); CREATININE SERUM 0.98 MG/DL (0.60-1.30); POTASSIUM 3.9 MMOL/L (3.6-5.0)
--- NOTE | 2020-12-26 08:48 | Cardiology Progress Note ---
Progress Note-Cardiology Events since last exam Date Seen by Provider: Dec 26, 2020 Time Seen by Provider: 08:46 Events since last exam I am following him for coronary artery disease. He was sitting up in bed. He already finished breakfast. Last night he felt as though he had some gas pain. This felt different than the previous chest and arm pain he had prior to his stents during this admission. He denies dyspnea, palpitations, syncope, or ankle edema. Certain portions of this document may have been dictated utilizing voice recognition technology. Inherent to this technology, typographical and gram matical errors may exist. As much as I am diligent to identify and correct these mistakes, some errors may remain in the document. Vitals Last set of Vitals Signs Vital Signs 12/24/20 12/24/20 12/26/20 08:00 10:17 12:00 Temp 36.0 Pulse 84 Resp 22 B/P (MAP) 161/70 (100) Pulse Ox 94 O2 Delivery Room Air O2 Flow Rate 2.00 FiO2 21 Labs Labs Laboratory Tests 12/26/20 08:21 Exam Vital Signs Vital Signs Date Time Temp Pulse Resp B/P (MAP) Pulse Ox O2 Delivery O2 Flow Rate FiO2 12/26/20 12:00 36.0 84 22 161/70 (100) 94 Room Air 12/24/20 10:17 21 12/24/20 08:00 2.00 Physical Exam General: Alert. No acute distress. He is obese. Eye: No xanthelasma. HENT: Normocephalic. Neck: Jugular venous pressure does not appear elevated. Respiratory: Lungs are clear to auscultation. Respirations are non-labored. Breath sounds are equal. Symmetrical chest wall expansion. Cardiovascular: Normal rate. Regular rhythm. No murmur. No gallop. Trace bilateral pretibial edema. Gastrointestinal: Soft. Normal bowel sounds. Skin: Warm. Dry. Excoriations on both upper extremities appear be healing. Neurologic: Alert and oriented to person, place, time. Cranial nerves 3-11 grossly intact. Psychiatric: Cooperative. Appropriate mood & affect. Labs Laboratory Tests Test 12/25/20 16:25 12/25/20 20:04 12/26/20 05:34 12/26/20 08:21 Range/Units Glucometer 137 H 140 H 121 H 70-110 MG/DL White Blood Count 5.1 4.3-11.0 10^3/uL Red Blood Count 3.77 L 4.30-5.52 10^6/uL Hemoglobin 13.3 13.3-17.7 g/dL Hematocrit 39 L 40-54 % Mean Corpuscular Volume 104 H 80-99 fL Mean Corpuscular Hemoglobin 35 H 25-34 pg Mean Corpuscular Hemoglobin Concent 34 32-36 g/dL Red Cell Distribution Width 14.6 H 10.0-14.5 % Platelet Count 98 L 130-400 10^3/uL Mean Platelet Volume 10.3 9.0-12.2 fL Immature Granulocyte % (Auto) 1 % Neutrophils (%) (Auto) 59 42-75 % Lymphocytes (%) (Auto) 32 12-44 % Monocytes (%) (Auto) 6 0-12 % Eosinophils (%) (Auto) 2 0-10 % Basophils (%) (Auto) 0 0-10 % Neutrophils # (Auto) 3.0 1.8-7.8 10^3/uL Lymphocytes # (Auto) 1.6 1.0-4.0 10^3/uL Monocytes # (Auto) 0.3 0.0-1.0 10^3/uL Eosinophils # (Auto) 0.1 0.0-0.3 10^3/uL Basophils # (Auto) 0.0 0.0-0.1 10^3/uL Immature Granulocyte # (Auto) 0.1 0.0-0.1 10^3/uL Percent Immature Platelet Fraction 3.8 0.0-7.6 % Sodium Level 132 L 135-145 MMOL/L Potassium Level 3.9 3.6-5.0 MMOL/L Chloride Level 100 98-107 MMOL/L Carbon Dioxide Level 22 21-32 MMOL/L Anion Gap 10 5-14 MMOL/L Blood Urea Nitrogen 18 7-18 MG/DL Creatinine 0.98 0.60-1.30 MG/DL Estimat Glomerular Filtration Rate 78 BUN/Creatinine Ratio 18 Glucose Level 244 H 70-105 MG/DL Calcium Level 9.4 8.5-10.1 MG/DL Test 12/26/20 11:32 Range/Units Glucometer 246 H 70-110 MG/DL Diagnosis/Problems Diagnosis/Problems (1) Coronary artery disease with unstable angina pectoris Assessment & Plan: He is now status post drug-eluting stents to the distal left anterior descending and distal right coronary arteries with 1 stent in each vessel. His previous stent in the left circumflex coronary artery was patent. He did not have a myocardial infarction. He has a normal ejection fraction. He has not had any recurrent anginal type chest discomfort. We can discontinue telemetry. Continue aspirin, clopidogrel, beta-can, and statin medication. From a cardiac standpoint, he is ready for discharge. I will plan on a follow- up complete blood count after discharge to monitor his thrombocytopenia since he is now on dual antiplatelet therapy. (2) Primary hypertension Assessment & Plan: His blood pressures remain intermittently elevated but overall seem to be improving. I resumed his home dose of chlorthalidone on 12/22. He is also on metoprolol. I started him him on losartan 50 mg once a day on 12/24. I recommend he be discharged on this combination of medications. (3) Mixed hyperlipidemia Status: Chronic Assessment & Plan: I have started him on low-dose statin medication and fish oil. He will need a follow-up lipid panel in approximately 6 weeks after d ischarge. We will need to watch his liver profile given his history of alcohol abuse. Hopefully, if he is transferred to a [facility] facility, he want to be abusing alcohol in the future. (4) Thrombocytopenia Status: Chronic Assessment & Plan: I suspect this may be related to his alcohol abuse. We will monitor this longitudinally after discharge. The plan is to transfer him to a alf which will mean he will not be able to consume excessive amounts of alcohol and hopefully the thrombocytopenia will recover. (5) Cigarette smoker Assessment & Plan: He was strongly advised to quit smoking. He does seem to realize this has negative health consequences. He hopes to be admitted to a alf and is hoping this will help with smoking cessation. (6) Morbid obesity Assessment & Plan: He needs to work on weight loss. Problem Qualifiers (1) Coronary artery disease with unstable angina pectoris: Qualified Codes: I25.110 - Atherosclerotic heart disease of [place] coronary artery with unstable angina pectoris NANCY GIVENS JR, MD Dec 26, 2020 08:48
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
--- NOTE | 2020-12-26 11:25 | Physical Therapy Daily Note ---
PT Daily Note-Current Subjective Pt in bathroom upon arrival w/ OT in room, pt agrees to tx. Transfers SCALE: Activities may be completed with or without assistive devices. 5-Oaiqgbknyg-bzteqzt completes the activity by him/herself with no assistance from a helper. 5-Set-up or Clean-up Assistance-helper sets up or cleans up; patient completes activity. [place] assists only prior to or following the activity. 4-Supervision or Touching Assistance-helper provides verbal cues and/or touching/steadying and/or contact guard assistance as patient completes activity. Assistance may be provided throughout the activity or intermittently. 3-Partial/Moderate Assistance-helper does LESS THAN HALF the effort. [place] lifts, holds or supports trunk or limbs, but provides less than half the effort. 2-Substantial/Maximal Assistance-helper does MORE THAN HALF the effort. [place] lifts or holds trunk or limbs and provides more than half the effort. 0-Btijvovub-ebynev does ALL the effort. Patient does none of the effort to complete the activity. Or, the assistance of 2 or more helpers is required for the patient to complete the activity. If activity was not attempted, code reason: 7-Patient Refused. 9-Not Applicable-not attempted and the patient did not perform the activity before the current illness, exacerbation or injury. 10-Not Attempted due to Environmental Limitations-(lack of equipment, weather restraints, etc.). 88-Not Attempted due to Medical Conditions or Safety Concerns. Sit to Lying (QC): 5 Sit to Stand (QC): 5 Weight Bearing Right Lower Extremity: Right Weight Bearing/Tolerated Left Lower Extremity: Left Weight Bearing/Tolerated Gait Training Does the Patient Walk?: Yes Distance: 20' Walk 10 feet (QC): 5 Gait Assistive Device: FWW Pt has shuffling gait w/ wide CORBIN Treatments Pt in bathroom upon arrival on toilet. Pt sit to stand SBA and amb to shower. Pt holds standing balance while beginning to doff gown, pt instructed to sit down to finish doffing clothing while seated. Pt doffs rest of gown and socks SBA. Pt gives self shower, requiring A for back and LE. Pt stands in shower to clean back side, pt able to hold standing balance while cleaning w/o a LOB and unsupported from UE. Pt sits back down in shower to complete. Pt able to dry torso and hair, requiring A for LE. Pt dons gown and socks w/ [place]. Pt sit to stand SBA and amb back to bed w/ FWW and SBA. Pt sit EOB to supine SBA and was left with all needs met, call light in hand. Assessment Current Status: Good Progress Pt limited d/t weakness and fatigue. Overall pt increasing endurance and balance. Pt able to hold dynamic standing and seated balance w/o UE support for extended periods of time. PT Study Specialist Goals Nursing Home Goals PT Nursing Home Goals Time Frame: Jan 02, 2021 Sit to Lying (QC): 6 Lying-Sitting on Side/Bed(QC): 6 Sit to Stand (QC): 6 Chair/Naq-lf-Gdyco Xfer(QC): 6 Does the Patient Walk: Yes Walk 10 feet (QC): 6 Walk 50ft with 2 Turns (QC): 6 PT Plan Treatment/Plan Treatment Plan: Continue Plan of Care Treatment Plan: Bed Mobility, Education, Functional Activity Dm, Functional Strength, Gait, Safety, Therapeutic Exercise, Transfers Treatment Duration: Jan 02, 2021 Frequency: 6 times per week Estimated Hrs Per Day: .25 hour per day Patient and/or Family Agrees t: Yes Time/GCodes Time In: 1010 Time Out: 1045 Total Billed Treatment Time: 35 Total Billed Treatment 1, FA BEREKET Romo LABEL STITCHER Dec 26, 2020 11:25
[2020-12-26 12:00] VITALS: BP 161/70
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
[2020-12-26] MEDS: ENOXAPARIN 40 MG/0.4 ML (LOVENOX) SYR SC SCH (13:55)
[2020-12-26 15:18] VITALS: BP 131/60
[2020-12-26] MEDS: clonazePAM 1 MG (KlonoPIN) TAB PO PRN ×2 (16:06→21:12)
[2020-12-26 19:16] VITALS: BP 107/61
[2020-12-26] MEDS: ROSUVASTATIN 10 MG (CRESTOR) TABLET PO SCH (21:12)
[2020-12-27 00:24] VITALS: BP 135/74
[2020-12-27 04:13] VITALS: BP 120/66
[2020-12-27] MEDS: inSUlin ASPART (NovoLOG) 1 UNIT/0.01 ML (CHARGE PER UNIT) SC SCH ×4 (05:26→20:43)
[2020-12-27] MEDS: CHLORTHALIDONE 25 MG (HYGROTON) TABLET PO SCH (06:16)
[2020-12-27] MEDS: MULTIVIT W/MINERALS TAB (THERAGRAN M) PO SCH (06:16)
[2020-12-27] MEDS: metFORMIN 500 MG (GLUCOPHAGE) TAB PO SCH (06:16)
[2020-12-27] MEDS: CATHETER FLUSH 10 ML SYR IV SCH ×3 (06:17→20:44)
[2020-12-27] MEDS: RT-ALBUTEROL/IPRATROPIUM 3 ML (DUONEB) VIAL INH SCH ×2 (07:41→20:41)
[2020-12-27 08:00] VITALS: BP 132/72
[2020-12-27] MEDS: meTOproloL SUCCINATE 50 MG (TOPROL XL) TAB PO SCH (08:41)
[2020-12-27] MEDS: OMEGA 3 (FISH OIL) 1000 MG CAP PO SCH ×2 (08:41→17:28)
[2020-12-27] MEDS: NICOTINE 14 MG (NICODERM) PATCH TD SCH (08:41)
[2020-12-27] MEDS: LOSARTAN 50 MG (COZAAR) TAB PO SCH (08:41)
[2020-12-27] MEDS: PANTOPRAZOLE 40 MG (PROTONIX) TAB PO SCH (08:41)
[2020-12-27] MEDS: CLOPIDOGREL 75 MG (PLAVIX) TABLET PO SCH (08:41)
[2020-12-27] MEDS: ASPIRIN E.C. 81 MG (ECOTRIN) TAB PO SCH (08:41)
[2020-12-27] MEDS: NICOTINE PATCH REMOVAL TP SCH (08:41)
[2020-12-27] MEDS: FOLIC ACID 1 MG TAB PO SCH (08:41)
--- NOTE | 2020-12-27 10:32 | Physical Therapy Daily Note ---
PT Daily Note-Current Subjective Patient agrees to PT. No c/o. Mental Status Patient Orientation: Person, Time, Situation Transfers SCALE: Activities may be completed with or without assistive devices. 6-Jdzoxhmufc-kmhxhvz completes the activity by him/herself with no assistance fr om a helper. 5-Set-up or Clean-up Assistance-helper sets up or cleans up; patient completes activity. [place] assists only prior to or following the activity. 4-Supervision or Touching Assistance-helper provides verbal cues and/or touching/steadying and/or contact guard assistance as patient completes activity. Assistance may be provided throughout the activity or intermittently. 3-Partial/Moderate Assistance-helper does LESS THAN HALF the effort. [place] lifts, holds or supports trunk or limbs, but provides less than half the effort. 2-Substantial/Maximal Assistance-helper does MORE THAN HALF the effort. [place] lifts or holds trunk or limbs and provides more than half the effort. 2-Kdfglwdyy-unmjln does ALL the effort. Patient does none of the effort to complete the activity. Or, the assistance of 2 or more helpers is required for the patient to complete the activity. If activity was not attempted, code reason: 7-Patient Refused. 9-Not Applicable-not attempted and the patient did not perform the activity before the current illness, exacerbation or injury. 10-Not Attempted due to Environmental Limitations-(lack of equipment, weather restraints, etc.). 88-Not Attempted due to Medical Conditions or Safety Concerns. Lying to Sitting/Side of Bed(Q: 5 Sit to Stand (QC): 5 Chair/Ouj-de-Cyqsq Xfer(QC): 5 Weight Bearing Right Lower Extremity: Right Weight Bearing/Tolerated Left Lower Extremity: Left Weight Bearing/Tolerated Gait Training Does the Patient Walk?: Yes Distance: 275' Walk 10 feet (QC): 5 Walk 50 ft with 2 Turns(QC): 5 Walk 150 ft (QC): 5 Gait Assistive Device: FWW safe and functional with FWW use Assessment Patient is up in recliner with needs met. Plan dismissal to [place] this week for continued care. PT Finish Remover Goals Finish Remover Goals PT Finish Remover Goals Time Frame: Jan 02, 2021 Sit to Lying (QC): 6 Lying-Sitting on Side/Bed(QC): 6 Sit to Stand (QC): 6 Chair/Ugy-ef-Jebim Xfer(QC): 6 Does the Patient Walk: Yes Walk 10 feet (QC): 6 Walk 50ft with 2 Turns (QC): 6 PT Plan Treatment/Plan Treatment Plan: Continue Plan of Care Treatment Plan: Bed Mobility, Education, Functional Activity Dm, Functional Strength, Gait, Safety, Therapeutic Exercise, Transfers Treatment Duration: Jan 02, 2021 Frequency: 6 times per week Estimated Hrs Per Day: .25 hour per day Patient and/or Family Agrees t: Yes Time/GCodes Time In: 849 Time Out: 902 Total Billed Treatment Time: 13 Total Billed Treatment 1 visit FA 13 min SHERI MICHELLE PT Dec 27, 2020 10:32
--- NOTE | 2020-12-27 11:04 | Occupational Ther Daily Note ---
OT Current Status-Daily Note Subjective Pt alert, sitting in recliner. Pt c/o that B UE's are hurting and it is difficult to move his arms. Pt agrees to work with B hands. Mental Status/Objective Patient Orientation: Person, Place, Time, Situation Attachments: IV ADL-Treatment Therapy Code Descriptions/Definitions Functional [place] Measure: 0=Not Assessed/NA 4=Minimal Assistance 1=Total Assistance 5=Supervision or Setup 2=Maximal Assistance 6=Modified [place] 3=Moderate Assistance 7=Complete IndependenceSCALE: Activities may be completed with or without assistive devices. 9-Tlfxmxppmb-wxkjffi completes the activity by him/herself with no assistance from a helper. 5-Set-up or Clean-up Assistance-helper sets up or cleans up; patient completes activity. [place] assists only prior to or following the activity. 4-Supervision or Touching Assistance-helper provides verbal cues and/or touching/steadying and/or contact guard assistance as patient completes activity. Assistance may be provided throughout the activity or intermittently. 3-Partial/Moderate Assistance-helper does LESS THAN HALF the effort. [place] lifts, holds or supports trunk or limbs, but provides less than half the effort. 2-Substantial/Maximal Assistance-helper does MORE THAN HALF the effort. [place] lifts or holds trunk or limbs and provides more than half the effort. 4-Qznmgzyjn-qrldqd does ALL the effort. Patient does none of the effort to complete the activity. Or, the assistance of 2 or more helpers is required for the patient to complete the activity. If activity was not attempted, code reason: 7-Patient Refused. 9-Not Applicable-not attempted and the patient did not perform the activity before the current illness, exacerbation or injury. 10-Not Attempted due to Environmental Limitations-(lack of equipment, weather restraints, etc.). 88-Not Attempted due to Medical Conditions or Safety Concerns. Other Treatment Pt educated on using therapy sponge with medium resistance to increase expressive music therapist strength and functional AROM for daily functional tasks. Pt able to complete 15 reps 1 set of gross expressive music therapist then 1 set 10 reps of tip/tip pinch with each digit though very light pinch noted. 1 set 10 reps of abd/add of digits. Skilled instruction required for correct technique. After therapy, pt sitting in recliner with call light/phone in reach. All needs met in room. OT Correction Goals Correction Goals Oral Hygiene (QC): 4 Toileting Hygiene (QC): 4 Lower Body Dressing (QC): 4 On/Off Footwear (QC): 4 1=Demonstrate adherence to instructed precautions during ADL tasks. 2=Patient will verbalize/demonstrate understanding of assistive devices/modifications for ADL. 3=Patient will improve strength/tolerance for activity to enable patient to perform ADL's. OT Education/Plan Problem List/Assessment Assessment: Decreased Activ Tolerance, Decreased UE Strength, Impaired Self- Care Skills Discharge Recommendations Plan/Recommendations: Continue POC Treatment Plan/Plan of Care Patient would benefit from OT for education, treatment and training to promote independence in ADL's, mobility, safety and/or upper extremity function for ADL's. Plan of Care: ADL Retraining, Functional Mobility, UE Funct Exercise/Act Treatment Duration: Jan 04, 2021 Frequency: 5 times per week Estimated Hrs Per Day: .25 hour per day Rehab Potential: Good Time/GCodes Start Time: 10:30 Stop Time: 10:40 Total Time Billed (hr/min): 10 Billed Treatment Time 1 visit-EX 1 (10 min) ALBERTO NAYAK Dec 27, 2020 11:04
[2020-12-27 12:00] VITALS: BP 153/79
--- NOTE | 2020-12-27 13:11 | Cardiology Progress Note ---
Progress Note-Cardiology Events since last exam Date Seen by Provider: Dec 27, 2020 Time Seen by Provider: 13:10 Events since last exam I am following him due to coronary artery disease. He denies any further chest discomfort. He has been ambulating with a walker. He denies dyspnea at rest, p alpitations, syncope, or ankle edema. He is still waiting to be placed in a [facility] facility. Certain portions of this document may have been dictated utilizing voice recognition technology. Inherent to this technology, typographical and grammat ical errors may exist. As much as I am diligent to identify and correct these mistakes, some errors may remain in the document. Vitals Last set of Vitals Signs Vital Signs 12/24/20 12/24/20 12/27/20 08:00 10:17 12:00 Temp 36.0 Pulse 86 Resp 20 B/P (MAP) 153/79 (103) Pulse Ox 94 O2 Delivery Room Air O2 Flow Rate 2.00 FiO2 21 Exam Vital Signs Vital Signs Date Time Temp Pulse Resp B/P (MAP) Pulse Ox O2 Delivery O2 Flow Rate FiO2 12/27/20 12:00 36.0 86 20 153/79 (103) 94 Room Air 12/24/20 10:17 21 12/24/20 08:00 2.00 Physical Exam General: Alert. No acute distress. He is obese. Eye: No xanthelasma. HENT: Normocephalic. Neck: Jugular venous pressure does not appear elevated. Respiratory: Lungs are clear to auscultation. Respirations are non-labored. Breath sounds are equal. Symmetrical chest wall expansion. Cardiovascular: Normal rate. Regular rhythm. No murmur. No gallop. Trace bilateral pretibial edema. Gastrointestinal: Soft. Normal bowel sounds. Skin: Warm. Dry. Neurologic: Alert and oriented to person, place, time. Cranial nerves 3-11 grossly intact. Psychiatric: Cooperative. Appropriate mood & affect. Labs Laboratory Tests Test 12/26/20 15:20 12/26/20 21:01 12/27/20 05:05 12/27/20 11:08 Range/Units Glucometer 186 H 135 H 132 H 148 H 70-110 MG/DL Diagnosis/Problems Diagnosis/Problems (1) Coronary artery disease with unstable angina pectoris Assessment & Plan: He is now status post drug-eluting stents to the distal left anterior descending and distal right coronary arteries with 1 stent in each vessel. His previous stent in the left circumflex coronary artery was patent. He did not have a myocardial infarction. He has a normal ejection fraction. He has not had any recurrent anginal type chest discomfort. I ordered to disco ntinue telemetry on 12/26. He should continue aspirin, clopidogrel, beta-can, and statin medication. From a cardiac standpoint, he is ready for discharge. I will plan on a follow-up complete blood count after discharge to monitor his thrombocytopenia since he is now on dual antiplatelet therapy. At this point in time, there are no acute, active cardiac issues. As such, cardiology will sign off. He should be scheduled to see me in the office in 1 month. Please call if you have other questions or concerns. (2) Primary hypertension Assessment & Plan: His blood pressures remain intermittently elevated but overall seem to be improving. I resumed his home dose of chlorthalidone on 12/22. He is also on metoprolol. I started him him on losartan 50 mg once a day on 12/24. I recommend he be discharged on this combination of medications. (3) Mixed hyperlipidemia Status: Chronic Assessment & Plan: I have started him on low-dose statin medication and fish oil. He will need a follow-up lipid panel approximately 6 weeks after discharge I will arrange through my office. We will need to watch his liver profile given his history of alcohol abuse. Hopefully, if he is transferred to a [facility] facility, he will not be abusing alcohol in the future. (4) Thrombocytopenia Status: Chronic Assessment & Plan: I suspect this may be related to his alcohol abuse. We will monitor this longitudinally after discharge. The plan is to transfer him to a senior care which will mean he will not be able to consume excessive amounts of alcohol and hopefully the thrombocytopenia will recover. (5) Cigarette smoker Assessment & Plan: He was strongly advised to quit smoking. He does seem to re umu this has negative health consequences. He hopes to be admitted to a senior care and is hoping this will help with smoking cessation. (6) Morbid obesity Assessment & Plan: He needs to work on weight loss. Problem Qualifiers (1) Coronary artery disease with unstable angina pectoris: Qualified Codes: I25.110 - Atherosclerotic heart disease of [place] coronary artery with unstable angina pectoris NANCY GIVENS JR, MD Dec 27, 2020 13:11
[2020-12-27] MEDS: ENOXAPARIN 40 MG/0.4 ML (LOVENOX) SYR SC SCH (13:18)
[2020-12-27] MEDS: ACETAMINOPHEN 500 MG TAB (TYLENOL) PO PRN (13:19)
[2020-12-27] MEDS: clonazePAM 1 MG (KlonoPIN) TAB PO PRN (15:19)
[2020-12-27 15:35] VITALS: BP 118/67
[2020-12-27] MEDS ORDERED: NICOTINE 2 MG LOZENGE (COMMIT) MM PRN (18:00)
--- NOTE | 2020-12-27 18:02 | Progress Note - Hospitalist ---
Subjective HPI/CC On Admission Date Seen by Provider: Dec 27, 2020 Time Seen by Provider: 10:15 Is a 60-year-old male with past medical history of coronary artery disease, alcohol abuse, hypertension, diabetes who presented to the emergency department due to generalized pain. Per ER report he summoned EMS due to pain all over his body from "3 different types of arthritis." On EMS arrival they found his home to be quite disheveled and multiple empty bottles of alcohol scattered throughout his home. He was incidentally found to be hypoxic. He does smoke regularly. His Covid swab was negative. He was admitted to [facility] for his hypoxia. This morning he denies any generalized pain and states that he was here for chest pain that radiated to his left arm. He does not follow with a manager pricing. He did have a cardiac cath done in January of last year with stent deployment. He denies any current chest pain. He did complain of wea kness and falls still. He was recently admitted to [facility] for falls and weakness with alcohol intoxication. He has been planning to admit to [facility] but has been waiting for a bed. He denied significant alcohol use and states he only drank a couple sips of beer and maybe 1 glass of vodka all day yesterday. We discussed that his alcohol level was 270 on arrival and that is inconsistent with that much alcohol. He then reports that once he starts drinking he frequently loses track but that he does not drink daily and has gone months without drinking without withdrawal. Subjective/Events-last exam He reports bilateral wrist pain. He says he has carpal tunnel and arthritis. This is a chronic issue. He denies trouble breathing. He wants a cigarette. He is willing to try nicotine lozenges. Objective Exam Vital Signs Vital Signs Date Time Temp Pulse Resp B/P (MAP) Pulse Ox O2 Delivery O2 Flow Rate FiO2 12/27/20 15:35 36.8 80 22 118/67 (84) 92 Room Air 12/24/20 10:17 21 12/24/20 08:00 2.00 Capillary Refill : Less Than 3 Seconds General Appearance: No Apparent Distress, WD/WN Respiratory: Lungs Clear, Normal Breath Sounds, No Respiratory Distress Cardiovascular: Regular Rate, Rhythm, No Murmur Gastrointestinal: Normal Bowel Sounds, Non Tender, Soft Extremity: Normal Inspection, Non Tender, No Pedal Edema Neurologic/Psychiatric: Alert, Oriented x3 Skin: Normal Color, Warm/Dry Results/Procedures Lab Patient resulted labs reviewed. Imaging: Reviewed Imaging Report Assessment/Plan Assessment and Plan Assess & Plan/Chief Complaint Debility Falls Alcohol abuse Alcoholic liver disease PT/OT child and family services worker consulted, appreciate recs Medically stable for discharge, planning for discharge to [facility] or [facility] pending approval COPD exacerbation s/p steroid course MAT protocol CAD Cardiology consulted, appreciate recs s/p coronary stenting to RCA and LAD DAPT statin, metoprolol, fish oil T2DM New diagnosis, not on home meds Started on Metformin A1c 6.5 Sliding scale insulin DVT ppx: Lovenox Diagnosis/Problems Diagnosis/Problems (1) COPD (chronic obstructive pulmonary disease) Status: Acute Qualifiers: COPD type: COPD with acute exacerbation Qualified Codes: J44.1 - Chronic obstructive pulmonary disease with (acute) exacerbation (2) CAD (coronary artery disease) Status: Acute Qualifiers: Coronary Disease-Associated Artery/Lesion type: [place] artery Andreafski vs. transplanted heart: [place] heart Associated angina: with stable angina Qualified Codes: I25.118 - Atherosclerotic heart disease of [place] coronary artery with other forms of angina pectoris (3) Debility Status: Acute FRANC GIPSON MD Dec 27, 2020 18:02
[2020-12-27 19:36] VITALS: BP_SYST 83; BP_DIAS 64; BP_DIAS 84
[2020-12-27] MEDS: ROSUVASTATIN 10 MG (CRESTOR) TABLET PO SCH (20:44)
[2020-12-28 00:10] VITALS: BP 112/71
[2020-12-28 03:56] VITALS: BP 104/66
[2020-12-28] MEDS: MULTIVIT W/MINERALS TAB (THERAGRAN M) PO SCH (04:52)
[2020-12-28] MEDS: metFORMIN 500 MG (GLUCOPHAGE) TAB PO SCH (04:52)
[2020-12-28] MEDS: CHLORTHALIDONE 25 MG (HYGROTON) TABLET PO SCH (04:52)
[2020-12-28] MEDS: inSUlin ASPART (NovoLOG) 1 UNIT/0.01 ML (CHARGE PER UNIT) SC SCH ×2 (04:52→11:35)
[2020-12-28] MEDS: CATHETER FLUSH 10 ML SYR IV SCH ×2 (04:52→13:42)
[2020-12-28] MEDS: ACETAMINOPHEN 500 MG TAB (TYLENOL) PO PRN ×2 (06:37→15:15)
[2020-12-28] MEDS: RT-ALBUTEROL/IPRATROPIUM 3 ML (DUONEB) VIAL INH SCH (06:55)
[2020-12-28 08:00] VITALS: BP 150/66
[2020-12-28] MEDS: ASPIRIN E.C. 81 MG (ECOTRIN) TAB PO SCH (08:20)
[2020-12-28] MEDS: FOLIC ACID 1 MG TAB PO SCH (08:20)
[2020-12-28] MEDS: meTOproloL SUCCINATE 50 MG (TOPROL XL) TAB PO SCH (08:20)
[2020-12-28] MEDS: LOSARTAN 50 MG (COZAAR) TAB PO SCH (08:20)
[2020-12-28] MEDS: PANTOPRAZOLE 40 MG (PROTONIX) TAB PO SCH (08:20)
[2020-12-28] MEDS: CLOPIDOGREL 75 MG (PLAVIX) TABLET PO SCH (08:20)
[2020-12-28] MEDS: NICOTINE 14 MG (NICODERM) PATCH TD SCH (08:20)
[2020-12-28] MEDS: OMEGA 3 (FISH OIL) 1000 MG CAP PO SCH (08:20)
[2020-12-28] MEDS: NICOTINE PATCH REMOVAL TP SCH (08:23)
--- NOTE | 2020-12-28 10:23 | Physical Therapy Progress Note ---
Therapy Progress Note Patient declined PT at this time. He reports he is depressed and began crying. Nursing is aware. Will attempt later today. 1 ref ([id number]) SHERI MICHELLE PT Dec 28, 2020 10:23
--- NOTE | 2020-12-28 10:56 | Occ Therapy Progress Note ---
Therapy Progress Note Pt laying in bed upon OT arrival. Pt states he isn't having a good day, and all he wants is a cigarette. He voiced frustration with feeling "stuck" and "trapped" in the hospital and feels like insurance is dragging their feet causing him to be here longer than necessary. OT provided therapeutic listening and communication with pt. Pt encouraged to complete ADL session, but he declined. He initally agreed to completing a few code and test clerk squeezes with putty, picking it up in his hand and completing 1 rep each hand. He declined further activity. OT educated him on purpose and benefit of OT, but he continued to decline, stating he doesn't want therapy today. OT will attempt tx again next available time. 1, visit 1035 MARIAM HUDSON OT Dec 28, 2020 10:56
[2020-12-28] MEDS ORDERED: METF-397 PO (11:59)
[2020-12-28] MEDS ORDERED: LOSA50TA63 PO (11:59)
[2020-12-28] MEDS ORDERED: CHLO25TA22 PO (11:59)
[2020-12-28] MEDS ORDERED: NICO2LOZ MM (11:59)
[2020-12-28 12:00] VITALS: BP 116/64
--- NOTE | 2020-12-28 12:07 | Discharge Summary ---
Discharge Summary Hospital Course Hospital Course Date of Admission: Dec 19, 2020 at 19:02 Admission Diagnosis: COPD exacerbation Family Physician/Provider: Junaid Tipton Physician Date of Discharge: 12/28/20 Discharge Diagnosis: Coronary artery disease with unstable angina, COPD exacerbation, debility Hospital Course: Maik Redman is a 60-year-old male who was admitted with acute COPD exacerbation. He was treated with a course of steroids and breathing treatments. His respiratory status improved. His course was complicated by chest pain and he underwent a left heart catheterization and a coronary artery stent placement. Cardiology assisted with his care. He was continued on aspirin and started on Plavix. His antihypertensive regimen was adjusted. He was suffering from de bility and was discharged to [facility] for ongoing therapy needs. He will follow up with cardiology and his primary care physician as scheduled. He was discharged in stable condition. Labs and Pending Lab Test: Laboratory Tests 12/27/20 15:37: Glucometer 150H 12/27/20 20:12: Glucometer 132H 12/28/20 04:48: Glucometer 139H 12/28/20 11:30: Glucometer 127H Home Meds Active Chlorthalidone 25 Mg Tablet 25 Mg PO DAILY@0700 30 Days Metformin HCl 500 Mg Tablet 500 Mg PO BID WITH MEALS 30 Days Losartan Potassium 50 Mg Tablet 50 Mg PO DAILY 30 Days Nicorette (Nicotine Polacrilex) 2 Mg Lozenge 2 Mg MM PRN PRN 30 Days Nitroglycerin 0.4 Mg Tab.subl 0.4 Mg SL NEEDED PRN Metoprolol Succinate 50 Mg Tab.er.24h 50 Mg PO DAILY Rosuvastatin Calcium 10 Mg Tablet 10 Mg PO HS Clopidogrel (Clopidogrel Bisulfate) 75 Mg Tablet 75 Mg PO DAILY Aspirin 81 Mg Tab.chew 81 Mg PO DAILY 30 Days Reported Imodium A-D (Loperamide HCl) 2 Mg Tablet 2-4 Mg PO QID PRN Stool Softener (Docusate Sodium) 100 Mg Tablet 100 Mg PO BID PRN Metoprolol Succinate 25 Mg Tab.er.24h 25 Mg PO DAILY Pantoprazole Sodium 20 Mg Tablet.dr 20 Mg PO DAILY Plavix (Clopidogrel Bisulfate) 75 Mg Tablet 75 Mg PO DAILY Tylenol Extra Strength (Acetaminophen) 500 Mg Tablet 1,000 Mg PO Q8H PRN Klor-Con 10 (Potassium Chloride) 10 Meq Tablet.er 10 Meq PO BID Proair Hfa (Albuterol Sulfate) 1 Puff Puff 2 Puff INH Q4H PRN Symbicort 160-4.5 Mcg Inhaler (Budesonide/Formoterol Fumarate) 10.2 Gm Hfa.aer.ad 2 Puff INH BID Meloxicam 7.5 Mg Tablet 7.5 Mg PO DAILY PRN Clonazepam 2 Mg Tablet 2 Mg PO TID PRN Atenolol-Chlorthalidone 50-25 (Atenolol/Chlorthalidone) 1 Each Tablet 1 Ea PO 1800 W/DINNER Instructions to Patient/Family Assessment/Instructions Take medications as prescribed. Follow-up with your primary care physician. Return with worsening shortness of breath, pain, or if you feel like you are getting worse. Follow Up Appt.: Next fci rounds Cardiology as scheduled Skilled NF Admit to: [facility] Certification ([facility]) I certify that SNF services are required to be given on an inpatient basis because of the above named patient's need for care home care on a continuing basis for the conditions(s) for which he/she was receiving inpatient hospital services prior to his/her transfer to the SNF. Custodial Facility Order: Nursing Services, Ream Cutter-Evaluate & Treat, Physical Therapy-Evaluate & Treat Oxygen Delivery Method: Room Air Discharge Diet: Low Sodium Diet Daily Activity as Tolerated: Yes Resuscitation Status: Full Code Franc Gipson Dec 28, 2020 11:59 Discharge Physical Exam General: Alert, Oriented X3, Cooperative, No Acute Distress HEENT: Atraumatic, EOMI, Mucous Memb Moist/Gross Lungs: Clear to Auscultation, Normal Air Movement Heart: Regular Rate, Normal S1, Normal S2, No Murmurs Abdomen: Normal Bowel Sounds, Soft, No Tenderness Extremities: No Edema, No Tenderness/Swelling Skin: No Significant Lesion Neuro: Normal Speech, Normal Tone Psych/Mental Status: Mental Status NL, Mood NL FRANC GIPSON MD Dec 28, 2020 12:05
--- NOTE | 2020-12-28 13:33 | Occ Therapy Progress Note ---
Therapy Progress Note Pt pleasantly declined OT services, stating he is planning on discharging later today. OT educated pt on purpose and benefit of OT, but he still declined. OT will attempt again next available date if pt still admitted to hospital. 1, refusal [id number] MARIAM HUDSON OT Dec 28, 2020 13:33
[2020-12-28] MEDS: ENOXAPARIN 40 MG/0.4 ML (LOVENOX) SYR SC SCH (13:42)
[2020-12-28 15:28] VITALS: BP 116/64
== END 2020-12-28 17:00 | DRG 981 ==
LOC: EDUNIT# 16:01 → ER 16:02 → CSD 19:02 → 4TH 12-20 15:41 → CSD 12-20 16:59 → 4TH 12-21 15:43
PROVIDERS: ADMIT Family Medicine; ATTEND Internal Medicine
PROC: 4A023N7 Measurement of Cardiac Sampling and Pressure, Left Heart, Percutaneous Approach (ICD-10-PCS; principal; 2020-12-21)
PROC: 027135Z Dilation of Coronary Artery, Two Arteries with Two Drug-eluting Intraluminal Devices, Percutaneous Approach (ICD-10-PCS; 2020-12-21)
PROC: B2111ZZ Fluoroscopy of Multiple Coronary Arteries using Low Osmolar Contrast (ICD-10-PCS; 2020-12-21)
DX: J44.1 Chronic obstructive pulmonary disease with (acute) exacerbation (principal); J69.0 Pneumonitis due to inhalation of food and vomit; J96.01 Acute respiratory failure with hypoxia; I25.110 Atherosclerotic heart disease of native coronary artery with unstable angina pectoris; Z68.41 Body mass index [BMI] 40.0-44.9, adult; R53.81 Other malaise; I10 Essential (primary) hypertension; Z20.822 Contact with and (suspected) exposure to COVID-19; E11.65 Type 2 diabetes mellitus with hyperglycemia; D69.6 Thrombocytopenia, unspecified; K70.30 Alcoholic cirrhosis of liver without ascites; F10.20 Alcohol dependence, uncomplicated; F17.210 Nicotine dependence, cigarettes, uncomplicated; Z95.5 Presence of coronary angioplasty implant and graft; E78.00 Pure hypercholesterolemia, unspecified; F41.9 Anxiety disorder, unspecified; F32.9 Major depressive disorder, single episode, unspecified; Z79.82 Long term (current) use of aspirin; Z79.899 Other long term (current) drug therapy; E78.2 Mixed hyperlipidemia; E66.01 Morbid (severe) obesity due to excess calories; Z68.36 Body mass index [BMI] 36.0-36.9, adult
CPT/HCPCS: 36410; 36415; 70450; 71260; 72125; 74177; 76937; 80048; 80053; 80061; 80320; 81000; 82140; 82805; 82947; 83036; 83880; 84145; 84484; 85007; 85025; 85027; 85610; 87636; 91300; 93005; 93306; 93458; 94640; 94664; 94760; 99291

== ENCOUNTER 2021-07-25 07:48 | Outpatient (CLI) | payer MEDICARE, MEDICAID ==
[~2021-07-25] VITALS: Ht 177.8 cm; Wt 117.9 kg
[~2021-07-25 07:48] MED LIST changes: +CHLO25TA22 PO; +CLOP75TA69 PO; +DOCU100T7 PO; +LOPE-134 PO; +LOSA50TA63 PO; +METF-397 PO; +METO50TA7 PO; +NICO2LOZ MM; +NITR0.4T42 SL; +POTA-160 PO; -POTA10TA6 PO; +ROSU10TA28 PO
[2021-07-30] MEDS ORDERED: TRAM50TA3 PO (08:04)
[2021-07-30] MEDS ORDERED: OXYM30SP25 NS (08:04)
== END 2021-07-30 08:16 | disposition home or self-care (01) ==
LOC: PREOP 07:48
PROVIDERS: ATTEND Specialist
DX: Z01.818 Encounter for other preprocedural examination (principal)

== ENCOUNTER 2021-08-02 08:04 | Day surgery (SDC) | payer MEDICARE, MEDICAID ==
[~2021-08-02] VITALS: Ht 173 cm; Wt 117.9 kg
[~2021-08-02 08:04] MED LIST changes: +OXYM30SP25 NS; +TRAM50TA3 PO
[2021-08-02] MEDS ORDERED: MIDAZOLAM 2 MG/2 ML (VERSED) VIAL ONE (08:47)
[2021-08-02 09:05] VITALS: BP 139/75
[2021-08-02] MEDS ORDERED: TIMOLOL MALEATE 0.5% 5 ML (TIMOPTIC) BTL OU PRN (09:15)
[2021-08-02] MEDS ORDERED: LIDOCAINE PF 1% 2 ML VIAL IR PRN (09:15)
[2021-08-02] MEDS ORDERED: POVIDONE (BETADINE) OPHTH SOLN 5% 30 ML OP ONE (09:15)
[2021-08-02] MEDS ORDERED: MOXIFLOXACIN OPHTH SOLN 5 MG/ML 0.3 ML SYRINGE OP ONE (09:15)
[2021-08-02] MEDS: TETRACAINE 0.5% OPHTH SOLN 4 ML BTL (SINGLE DOSE ONLY) OU PRN ×4 (09:16→09:33)
[2021-08-02] MEDS: TROPICAMIDE 1% OPH SOLN (MYDRIACYL) 15 ML BTL OP SCH ×3 (09:21→09:33)
[2021-08-02] MEDS: PHENYLEPHRINE 10% OPHTH (NEO-SYN) 5 ML BTL OU SCH ×3 (09:21→09:33)
--- NOTE | 2021-08-02 09:55 | Ophthalmologist Pre-Op Note ---
Pre-Operative Progress Note H&P Reviewed The H&P was reviewed, patient examined and no changes noted. Date H&P Reviewed: Aug 02, 2021 Time H&P Reviewed: 09:51 Pre-Op Dx Cataract, Left Eye JARET LOFTON MD Aug 02, 2021 09:55
--- NOTE | 2021-08-02 10:17 | Ophthalmology Operative Report ---
Cataract removal/placement IOL PREOPERATIVE DIAGNOSIS: Cataract Left Eye POSTOPERATIVE DIAGNOSIS: Cataract Left Eye PROCEDURE: Cataract removal and placement of posterior chamber implant, left eye SURGEON: Eduardo Lofton ANESTHESIA: Topical with sedation COMPLICATIONS: None ESTIMATED BLOOD LOSS: Minimal DESCRIPTION OF PROCEDURE: After proper informed consent was obtained, the patient, a 61 male, was taken to the Operating Room and the left eye was anesthetized with tetracaine. The left eye was then prepped and draped in the usual manner. A wire lid speculum was placed. A paracentesis was made at the left hand position. Preservative free lidocaine was injected into the anterior chamber followed by viscoelastic. A clear corneal incision was made in the temporal position. A capsulorrhexis was preformed and the central nuclear and cortical material were removed. The posterior capsule was polished and an Nheemias 19.0 AU00T0 was placed into the capsular bag. The residual viscoelastic was aspirated and balanced saline solution was injected into the anterior chamber. Moxifloxacin was injected into the anterior chamber. The wound was checked and found to be water tight. The patient tolerated the procedure well without complications. EDUARDO LOFTON MD Aug 02, 2021 10:17
[2021-08-02 10:29] VITALS: BP 152/69
[2021-08-02] MEDS ORDERED: acetaZOLAMIDE ER 500 MG CAP (DIAMOX SEQUELS) PO ONE (11:15)
--- NOTE | 2021-08-02 13:19 | Anesthesia-General Post-Op ---
MAC Patient Condition Mental Status/LOC: Same as Preop Cardiovascular: Satisfactory Nausea/Vomiting: Absent Respiratory: Satisfactory Pain: Controlled Complications: Absent Post Op Complications Complications None Follow Up Care/Instructions Patient Instructions None needed. Anesthesiology Discharge Order Discharge Order Patient is doing well, no complaints, stable vital signs, no apparent adverse anesthesia problems. No complications reported per nursing. KARY BAUER CRNA Aug 02, 2021 13:19
== END 2021-08-02 10:31 | disposition home or self-care (01) ==
LOC: SDC 08:04
PROVIDERS: ATTEND Specialist
DX: E11.36 Type 2 diabetes mellitus with diabetic cataract (principal); H25.9 Unspecified age-related cataract; F17.200 Nicotine dependence, unspecified, uncomplicated; Z95.5 Presence of coronary angioplasty implant and graft; Z79.84 Long term (current) use of oral hypoglycemic drugs
CPT/HCPCS: 82947

== ENCOUNTER → 2021-09-10 | Outpatient (CLI) | payer MEDICARE, MEDICAID ==
[~2021-09-10] VITALS: Ht 177.8 cm; Wt 119.0 kg
== END | disposition home or self-care (01) ==
LOC: PREOP 07:47
PROVIDERS: ATTEND Specialist
DX: Z01.818 Encounter for other preprocedural examination (principal)

== ENCOUNTER 2021-09-13 09:36 | Day surgery (SDC) | payer MEDICARE, MEDICAID ==
[~2021-09-13] VITALS: Ht 177.8 cm; Wt 119.0 kg
[2021-09-13] MEDS: TETRACAINE 0.5% OPHTH SOLN 4 ML BTL (SINGLE DOSE ONLY) OU PRN ×4 (10:10→10:26)
[2021-09-13] MEDS ORDERED: LIDOCAINE PF 1% 2 ML VIAL IR PRN (10:15)
[2021-09-13] MEDS ORDERED: POVIDONE (BETADINE) OPHTH SOLN 5% 30 ML OP ONE (10:15)
[2021-09-13] MEDS ORDERED: MOXIFLOXACIN OPHTH SOLN 5 MG/ML 0.3 ML SYRINGE OP ONE (10:15)
[2021-09-13] MEDS ORDERED: TIMOLOL MALEATE 0.5% 5 ML (TIMOPTIC) BTL OU PRN (10:15)
[2021-09-13] MEDS: PHENYLEPHRINE 10% OPHTH (NEO-SYN) 5 ML BTL OU SCH ×3 (10:16→10:26)
[2021-09-13] MEDS: TROPICAMIDE 1% OPH SOLN (MYDRIACYL) 15 ML BTL OP SCH ×3 (10:16→10:26)
[2021-09-13 10:22] VITALS: BP 148/66
--- NOTE | 2021-09-13 10:51 | Ophthalmologist Pre-Op Note ---
Pre-Operative Progress Note H&P Reviewed The H&P was reviewed, patient examined and no changes noted. Date H&P Reviewed: Sep 13, 2021 Time H&P Reviewed: 10:50 Pre-Op Dx Cataract, Right Eye JARET LOFTON MD Sep 13, 2021 10:51
[2021-09-13] MEDS ORDERED: MIDAZOLAM 2 MG/2 ML (VERSED) VIAL ONE (10:52)
--- NOTE | 2021-09-13 11:17 | Ophthalmology Operative Report ---
Cataract removal/placement IOL PREOPERATIVE DIAGNOSIS: Cataract Right Eye POSTOPERATIVE DIAGNOSIS: Cataract Right Eye PROCEDURE: Cataract removal and placement of posterior chamber implant, right eye SURGEON: Eduardo Lofton ANESTHESIA: Topical with sedation COMPLICATIONS: None ESTIMATED BLOOD LOSS: Minimal DESCRIPTION OF PROCEDURE: After proper informed consent was obtained, the patient, a 61 male, was taken to the Operating Room and the right eye was anesthetized with tetracaine. The right eye was then prepped and draped in the usual manner. A wire lid speculum was placed. A paracentesis was made at the left hand position. Preservative free lidocaine was injected into the anterior chamber followed by viscoelastic. A clear corneal incision was made in the temporal position. A capsulorrhexis was preformed and the central nuclear and cortical material were removed. The posterior capsule was polished and Nehemias 18.0 AU00T0 IOL was placed into the capsular bag. The residual viscoelastic was aspirated and balanced saline solution was injected into the anterior chamber. Moxifloxacin was injected into the anterior chamber. The wound was checked and found to be water tight. The patient tolerated the procedure well without complications. EDUARDO LOFTON MD Sep 13, 2021 11:17
[2021-09-13] MEDS ORDERED: acetaZOLAMIDE ER 500 MG CAP (DIAMOX SEQUELS) PO ONE (11:30)
[2021-09-13 11:34] VITALS: BP 142/67
--- NOTE | 2021-09-13 13:34 | Anesthesia-General Post-Op ---
MAC Patient Condition Mental Status/LOC: Same as Preop Cardiovascular: Satisfactory Nausea/Vomiting: Absent Respiratory: Satisfactory Pain: Controlled Complications: Absent Post Op Complications Complications None Follow Up Care/Instructions Patient Instructions None needed. Anesthesiology Discharge Order Discharge Order Patient is doing well, no complaints, stable vital signs, no apparent adverse anesthesia problems. No complications reported per nursing. PORSHA COLES CRNA Sep 13, 2021 13:33
== END 2021-09-13 11:36 | disposition home or self-care (01) ==
LOC: SDC 09:36
PROVIDERS: ATTEND Specialist
DX: H25.9 Unspecified age-related cataract (principal); F17.210 Nicotine dependence, cigarettes, uncomplicated; Z79.82 Long term (current) use of aspirin; Z88.8 Allergy status to other drugs, medicaments and biological substances
CPT/HCPCS: 82947